=== PATIENT | male | born 1980 | race Caucasian/White ===

== ENCOUNTER 2018-06-14 07:52 | Day surgery (SDC) | payer BC ==
[~2018-06-14 07:52] MED LIST: Ketorolac 30 MG/ML SDV ONE; Lactated Ringers 1,000 ML IV SCH; Lactated Ringers 1,000 ML ONE; Lidocaine 1% 4 ML ONE; Lidocaine 1% 6 ML ONE; Lidocaine 1%/Sod Bicarbonate in NS 8.4% 1 ML Syringe IDERM PRN; Midazolam 1 MG/ML 2 ML SDV ONE; Ondansetron 4 MG/2 ML SDV ONE; Propofol 200 MG/20 ML SDV ONE; Rocuronium 50 MG/5 ML Vial ONE; Ropivacaine 0.5% 5 MG/ML 30 ML SDV ONE; Sodium Chloride 0.9% 10 ML Syringe FLUSH PRN; fentaNYL 250 MCG/5 ML SDV ONE
[2018-06-14] MEDS ORDERED: EPINEPHrine 1 MG/ML 30 ML MDV IV ONE (08:00)
[2018-06-14] MEDS ORDERED: EPINEPHrine 1 MG/ML 30 ML MDV ONE (08:15)
--- NOTE | 2018-06-14 08:50 | PCM.PREANE ---
Preanesthetic Assessment - Anesthesia/Transfusion/Family Hx Anesthesia History: Prior Anesthesia Without Reaction Family History of Anesthesia Reaction: No - Review of Systems General: No Symptoms Pulmonary: No Symptoms Cardiovascular: No Symptoms Gastrointestinal: No Symptoms Neurological: No Symptoms Other: Reports: Diabetes (Type II, controlled with oral medication. Blood Glucose today 269. Iggy states this is his usual range for this time of day. Ate last at 2300. ) - Physical Assessment NPO Status Date: 06/13/18 NPO Status Time: 23:00 O2 Sat by Pulse Oximetry: 97 Respiratory Rate: 16 Vital Signs: Last Vital Signs Temp 36.2 C 06/14/18 08:05 Pulse 97 06/14/18 08:05 Resp 16 06/14/18 08:05 BP 117/79 06/14/18 08:05 Pulse Ox 97 06/14/18 08:05 ASA Class: 2 Mental Status: Alert & Oriented x3 Airway Class: Mallampati = 1 Dentition: Reports: Normal Dentition Thyro-Mental Finger Breadths: 3 Mouth Opening Finger Breadths: 3 ROM/Head Extension: Full Lungs: Clear to Auscultation, Normal Respiratory Effort Cardiovascular: Regular Rate, Regular Rhythm - Lab Values: Laboratory Last Values POC Glucose 269 mg/dL (70-105) H 06/14/18 08:17 MRSA (PCR) Negative 06/13/18 11:55 - Allergies Allergies/Adverse Reactions: Allergies Allergy/AdvReac Type Severity Reaction Status Date / Time No Known Allergies Allergy Verified 06/13/18 15:03 - Anesthesia Plan Pre-Op Medication Ordered: Anxiolytic - Acknowledgements Anesthesia Type Planned: General Anesthesia, Regional Block (Interscalene Nerve Block ) Pt an Appropriate Candidate for the Planned Anesthesia: Yes Alternatives and Risks of Anesthesia Discussed w Pt/Guardian: Yes Pt/Guardian Understands and Agrees with Anesthesia Plan: Yes Additional Comments: Denies ETOH use for the last 2 years. Iggy does have an ankle monitoring device for ETOH on his left ankle that is unable to be removed. Chewing tobbaco 1/8 can per day. PreAnesthesia Questionnaire HEENT History: Reports: Impaired Vision Cardiovascular History: Reports: High Cholesterol Respiratory History: Reports: None Gastrointestinal History: Reports: None Genitourinary History: Reports: None QA SOFTWARE TESTER History: Reports: None Musculoskeletal History: Reports: Other (See Below) Other Musculoskeletal History: left shoulder pain, shoulder surgery Neurological History: Reports: None Psychiatric History: Reports: Other (See Below) Other Psychiatric History: fatigue, sleep disorder Endocrine/Metabolic History: Reports: Diabetes, Type II Hematologic History: Reports: None Immunologic History: Reports: None Oncologic (Cancer) History: Reports: None Dermatologic History: Reports: None - Past Surgical History Head Surgeries/Procedures: Reports: None HEENT Surgical History: Reports: Oral Surgery Cardiovascular Surgical History: Reports: None Respiratory Surgical History: Reports: None GI Surgical History: Reports: None Female Surgical History: Reports: None Male Surgical History: Reports: None Endocrine Surgical History: Reports: None Neurological Surgical History: Reports: None Musculoskeletal Surgical History: Reports: None Oncologic Surgical History: Reports: None Dermatological Surgical History: Reports: None - SUBSTANCE USE Smoking Status *Q: Current Every Day Smoker Tobacco Use Within Last Twelve Months: Snuff/Dip Recreational Drug Use History: No - HOME MEDS Home Medications: Home Meds Cholecalciferol (Vitamin D3) [Vitamin D3] 2,000 unit PO DAILY 06/13/18 [History] Fenofibrate 54 mg PO DAILY 06/13/18 [History] hydrOXYzine HCl [hydrOXYzine] 25 - 50 mg PO BEDTIME PRN 06/13/18 [History] sitaGLIPtin Phos/Metformin HCl [Janumet Xr 50-1,000 mg Tablet] 1 tab PO BID [History] Acetaminophen/HYDROcodone [[place] 325-5 MG] 1 - 2 tab PO Q6H PRN #40 tablet 06/14 [Rx] Cyclobenzaprine [Flexeril] 10 mg PO Q8H PRN #40 tab 06/14/18 [Rx] - CURRENT (IN HOUSE) MEDS Current Meds: Current Medications Lactated Ringer's (Ringers, Lactated) 1,000 mls @ 125 mls/hr IV ASDIRECTED DEMIAN Stop: 06/14/18 23:00 Lidocaine/Sodium Bicarbonate (Buffered Lidocaine 1% In Ns 8.4%) 0.25 ml IDERM ONETIME PRN PRN Reason: Prior to IV Start Stop: 06/14/18 18:00 Sodium Chloride (Saline Flush) 10 ml FLUSH ASDIRECTED PRN PRN Reason: Keep Vein Open Stop: 06/14/18 18:00 Discontinued Medications Epinephrine HCl (Adrenalin) Confirm Administered Dose 1 mg .ROUTE .STK-MED ONE Stop: 06/14/18 06:43 Epinephrine HCl (Adrenalin) 3 mg IV ONETIME ONE Stop: 06/14/18 08:01 Epinephrine HCl (Adrenalin) 3 mg .XX ONETIME ONE Stop: 06/14/18 08:16 Fentanyl (Sublimaze) Confirm Administered Dose 250 mcg .ROUTE .STK-MED ONE Stop: 06/14/18 06:38 Lidocaine HCl (Xylocaine-Mpf 1%) Confirm Administered Dose 6 mls @ as directed .ROUTE .STK-MED ONE Stop: 06/14/18 06:37 Lactated Ringer's (Ringers, Lactated) Confirm Administered Dose 1,000 mls @ as directed .ROUTE .STK-MED ONE Stop: 06/14/18 06:37 Lidocaine HCl (Xylocaine-Mpf 1%) Confirm Administered Dose 4 mls @ as directed .ROUTE .STK-MED ONE Stop: 06/14/18 06:43 Ketorolac Tromethamine (Toradol) Confirm Administered Dose 30 mg .ROUTE .STK- MED ONE Stop: 06/14/18 06:37 Midazolam HCl (Versed 1 Mg/Ml) Confirm Administered Dose 2 mg .ROUTE .STK-MED ONE Stop: 06/14/18 06:38 Ondansetron HCl (Zofran) Confirm Administered Dose 4 mg .ROUTE .STK-MED ONE Stop: 06/14/18 06:37 Propofol (Diprivan 20 Ml) Confirm Administered Dose 200 mg .ROUTE .STK-MED ONE Stop: 06/14/18 06:37 Rocuronium [place] (Zemuron) Confirm Administered Dose 50 mg .ROUTE .STK-MED ONE Stop: 06/14/18 06:37 Ropivacaine (Naropin 0.5%) Confirm Administered Dose 30 ml .ROUTE .STK-MED ONE Stop: 06/14/18 06:43
--- NOTE | 2018-06-14 10:02 | PCM.SN ---
- Free Text/Narrative Note: Interscalene nerve block note Date: 06/14/2018 Start: 924 Time Out: 921 Stop: 932 Procedure: Left interscalene block under US guidance for postoperative pain control Patient chart reviewed, risk/benefits discussed with patient, consent obtained. Patient positioned supine, monitors/alarms on, oxygen placed via nasal cannula at 2 LPM. Left shoulder prepped with chloraprep x2. Sterile drapes placed with aseptic technique. Under US guidance, right subclavian artery visualized along with the brachial plexus. Plexus followed cephalad up to C6 cricoid level, and area localized with 1mls of 1% lidocaine. 22gauge 2 inch stimiplex needle inserted under US and guided to brachial plexus C5-C6 trunks with 0.44mV with stimulation of biceps noted. Stimulation abolished at 0.2mVs. 1ml of Normal Saline injected with loss of stimulation. Incremental injection of 5mls with negative aspiration prior to each injection of 0.5% ropivacaine with 1:200,000 epinephrine. Total volume=30mls. Refer to nurses notes for vital signs and medication administration. Zayra Cardona [employer]
[2018-06-14] MEDS ORDERED: Propofol 200 MG/20 ML SDV ONE (10:35)
[2018-06-14] MEDS ORDERED: Albuterol 0.083% 2.5 MG/3 ML Neb Soln NEB PRN (11:03)
[2018-06-14] MEDS ORDERED: fentaNYL 100 MCG/2 ML SDV IVPUSH PRN (11:03)
[2018-06-14] MEDS ORDERED: HYDROmorphone 0.5 MG/0.5 ML Syringe IVPUSH PRN (11:03)
[2018-06-14] MEDS ORDERED: diphenhydrAMINE 50 MG/ML SDV IVPUSH PRN (11:03)
[2018-06-14] MEDS ORDERED: Ondansetron 4 MG/2 ML SDV IVPUSH PRN (11:03)
[2018-06-14] MEDS ORDERED: fentaNYL 100 MCG/2 ML SDV ONE (11:23)
[2018-06-14] MEDS: EPINEPHrine 1 MG/ML SDV ONE ×2 (11:26→11:41)
--- NOTE | 2018-06-14 12:21 | PCM.POSTAN ---
POST ANESTHESIA ASSESSMENT - MENTAL STATUS Mental Status: Alert - VITAL SIGNS Pulse Rate: 106 SaO2: 95 (2 LPM nasal cannula) Resp Rate: 16 Blood Pressure: 147/95 Temperature: 36.2 C - RESPIRATORY Respiratory Status: Respiratory Rate WNL, Airway Patent, O2 Saturation Stable, Supplemental Oxygen - CARDIOVASCULAR CV Status: Pulse Rate WNL, Blood Pressure Stable - GASTROINTESTINAL GI Status: No Symptoms - POST OP HYDRATION Hydration Status: Adequate & Stable
--- NOTE | 2018-06-14 13:42 | PCM48HPAN ---
Post Anesthesia Note - EVALUATION WITHIN 48HRS OF ANESTHETIC Vital Signs in Normal Range: Yes Patient Participated in Evaluation: Yes Respiratory Function Stable: Yes Airway Patent: Yes Cardiovascular Function Stable: Yes Hydration Status Stable: Yes Pain Control Satisfactory: Yes Nausea and Vomiting Control Satisfactory: Yes Mental Status Recovered: Yes
--- NOTE | 2018-06-18 15:09 | PCM.OPNOTE ---
- General Post-Op/Procedure Note Date of Surgery/Procedure: 06/14/18 Operative Procedure(s): left shoulder video arthroscopy with biceps tenodesis, subacromial decompression and limited debridement Pre Op Diagnosis: left shoulder biceps tendinosis and subacromial impingement Post-Op Diagnosis: Same Anesthesia Technique: General ET Tube, Regional Block Primary Surgeon: Matteo Tobias Anesthesia Provider: Paula Arteaga [employer] Rep: Izabela Linares EBAysha in mLs: 5 Complications: None Condition: Good
--- NOTE | 2018-06-19 15:08 | OR ---
DATE OF OPERATION: 06/14/2018 SURGEON: Matteo Tobias MD OPERATION PERFORMED: Left shoulder video arthroscopy with biceps tenodesis, subacromial decompression, and limited debridement. PREOPERATIVE DIAGNOSIS: Left shoulder biceps tendinosis and subacromial impingement. POSTOPERATIVE DIAGNOSIS: Left shoulder biceps tendinosis and subacromial impingement. ANESTHESIA: General endotracheal intubation with regional interscalene block. ANESTHESIA PROVIDER: Paula Arteaga CRNA. CAN HANDLER: Izabela Linares PA-C. ESTIMATED BLOOD LOSS: Less than 5 mL. COMPLICATIONS: None. CONDITION: Stable. DESCRIPTION OF PROCEDURE: The patient was identified in the preop holding area. Proper site was marked and identified by the surgeon. The patient was taken back to the operating theater, where after adequate anesthesia, the patient was placed in the lazy right lateral decubitus position and the left lower extremity was sterilely prepped and draped in the usual sterile fashion. OR time-out was performed. The patient received 2 g of IV Ancef. At this time, 12 pounds of traction was applied to the left upper extremity. A standard posterior incision was made and scope trocar was introduced to the glenohumeral joint. At this time, the patient was noted to have significant bicipital tendinitis as well as a type 2 SLAP tear that was not unstable anteriorly. At this time, the undersurface of the rotator cuff was found to have no tendinous tissues and no tendinopathy. The subscapularis tendon was intact. Glenohumeral joint showed no signs of chondromalacia. Anterior portal was then created using an outside-in technique. Spinal needle was then used for passage of a #2 FiberWire through the rotator interval and through the biceps tendon and then a tenotomy was performed at the attachment of the glenoid of the biceps tendon. At this time, it was found to have adequate resection and debridement was then done of the superior labrum back to a stable rim. At this point, attention was turned to the subacromial space. A lateral portal was then created and partial synovectomy and limited debridement were done to the subacromial space as it did show significant bursitis. The CA ligament did show significant fraying and at this time, debridement was done of the CA ligament as well as acromioplasty was performed back to a smooth border to the posterior rim opening up the subacromial space. At this time, the anterior limbs of the previous biceps tenodesis were identified anteriorly and then arthroscopically, these were tied in the rotator interval and the sutures were then cut. The patient's rotator cuff otherwise had minor amount of fraying, but otherwise holding intact with no signs of rotator cuff tear. Adequate saline was then irrigated through the shoulder and 3-0 nylon sutures were used for closure of the portal incisions. The patient was placed in a sterile soft dressing and a pillow sling and sent to the PACU in stable condition. REYNALDO /[id number]
== END 2018-06-14 14:01 | disposition home or self-care (01) ==
LOC: JD.SDS 07:52
PROVIDERS: ATTEND Orthopaedic Surgery
DX: M75.22 Bicipital tendinitis, left shoulder (principal); M75.42 Impingement syndrome of left shoulder; M75.52 Bursitis of left shoulder; S43.432A Superior glenoid labrum lesion of left shoulder, initial encounter; E11.9 Type 2 diabetes mellitus without complications; E78.00 Pure hypercholesterolemia, unspecified; E78.1 Pure hyperglyceridemia; E55.9 Vitamin D deficiency, unspecified; F17.220 Nicotine dependence, chewing tobacco, uncomplicated; G89.18 Other acute postprocedural pain; X58.XXXA Exposure to other specified factors, initial encounter; Z79.84 Long term (current) use of oral hypoglycemic drugs; Z79.899 Other long term (current) drug therapy
CPT/HCPCS: 29826; 29828; 64415; 82962; 87641; J0171; J1885; J2001; J2250; J2405; J2704; J2795; J3010; J7120; 01630

== ENCOUNTER 2020-09-13 13:09 | Inpatient (IN) | payer SELFPAY ==
[2020-09-13] MEDS ORDERED: Sodium Chloride 0.9% 10 ML Syringe FLUSH PRN (13:29)
--- NOTE | 2020-09-13 13:38 | EDM.PDOC ---
ED HPI GENERAL MEDICAL PROBLEM - General Chief Complaint: Skin Complaint Stated Complaint: INFECTED TOE Time Seen by Provider: 09/13/20 13:29 Source of Information: Reports: Patient, RN Notes Reviewed History Limitations: Reports: No Limitations - History of Present Illness INITIAL COMMENTS - FREE TEXT/NARRATIVE: Patient is a 40-year-old male who presents to the ER for evaluation of his left great toe infection. States that his toe got stepped on by a cow over a month ago, and he has been doctoring this at home, has been slightly reddened and a little bit swollen but has worsened over the last week, he notes that there is an ulceration to the underside of his left great toe, that seems to be black, and oozing. He has not been taking anything for pain as he states it is not painful. He denies any peripheral neuropathy, due to being a type II diabetic and states that he had a recent physical 2 weeks ago and everything was within normal limits for blood sugar control. Patient notes that he is fairly ticklish on his feet, so he does not think that he has any sort of neuropathy. Patient has good blood flow to his foot, dorsal pulses are strong on the left foot. Patient denies any other sick-like symptoms, fever/chills, cough/shortness of breath, nausea/vomiting/diarrhea. - Related Data Allergies Allergy/AdvReac Type Severity Reaction Status Date / Time No Known Allergies Allergy Verified 09/13/20 13:22 Home Meds: Home Meds Cholecalciferol (Vitamin D3) [Vitamin D3] 2,000 unit PO DAILY 06/13/18 [History] Fenofibrate 54 mg PO DAILY 06/13/18 [History] hydrOXYzine HCL [hydrOXYzine] 25 - 50 mg PO BEDTIME PRN 06/13/18 [History] metFORMIN [Glucophage XR] 1,000 mg PO BID 09/13/20 [History] Past Medical History HEENT History: Reports: Impaired Vision Cardiovascular History: Reports: High Cholesterol Respiratory History: Reports: None Gastrointestinal History: Reports: None Genitourinary History: Reports: None DRAWER IN PLAIN LOOM History: Reports: None Musculoskeletal History: Reports: Other (See Below) Other Musculoskeletal History: left shoulder pain, shoulder surgery Neurological History: Reports: None Psychiatric History: Reports: Other (See Below) Other Psychiatric History: fatigue, sleep disorder Endocrine/Metabolic History: Reports: Diabetes, Type II Hematologic History: Reports: None Immunologic History: Reports: None Oncologic (Cancer) History: Reports: None Dermatologic History: Reports: None - Past Surgical History HEENT Surgical History: Reports: Oral Surgery Musculoskeletal Surgical History: Reports: Shoulder Surgery Social & Family History - Tobacco Use Tobacco Use Status *Q: Never Tobacco User - Caffeine Use Caffeine Use: Reports: Energy Drinks - Recreational Drug Use Recreational Drug Use: No ED ROS GENERAL - Review of Systems Review Of Systems: Comprehensive ROS is negative, except as noted in HPI. ED EXAM, SKIN/RASH Exam: See Below Exam Limited By: No Limitations General Appearance: Alert, WD/WN, No Apparent Distress Respiratory/Chest: No Respiratory Distress, Lungs Clear, Normal Breath Sounds, No Accessory Muscle Use, Chest Non-Tender Cardiovascular: Normal Peripheral Pulses, Regular Rate, Rhythm, No Edema Extremities: Normal Range of Motion, Normal Capillary Refill, Other (Left great toe with ulceration to plantar surface, the entire toe is erythematous and has various stages of skin flaking off. pt denies pain.) Neurological: Alert, Oriented, Normal Cognition, No Motor/Sensory Deficits Psychiatric: Normal Affect, Normal Mood Skin: Warm, Dry, Normal Color, No Rash, Wound/Incision (Ulcer to left great toe on the plantar surface, with surrounding erythema and swelling.) Course - Vital Signs Last Recorded V/S: Last Vital Signs Temp 98.2 F 09/13/20 20:36 Pulse 104 H 09/13/20 20:36 Resp 13 09/13/20 20:36 BP 140/80 09/13/20 20:36 Pulse Ox 95 09/13/20 20:36 - Orders/Labs/Meds Orders: Active Orders 24 hr Category Date Time Status Patient Status [ADT] Routine ADT 09/13/20 15:25 Active Blood Glucose Check, Bedside [RC] TIDMEALS Care 09/13/20 15:24 Active Diabetes Education [RC] Click to Edit Care 09/13/20 15:30 Active Oxygen Therapy [RC] PRN Care 09/13/20 15:25 Active Up ad Elena [RC] ASDIRECTED Care 09/13/20 15:24 Active VTE/DVT Education [RC] PER UNIT ROUTINE Care 09/13/20 15:25 Active Vital Signs [RC] 10,16,22,04 Care 09/13/20 15:25 Active OT Evaluation and Treatment [CONS] Routine Cons 09/13/20 15:24 Active PT Evaluation and Treatment [CONS] Routine Cons 09/13/20 15:24 Active Consistent Carbohydrate Diet [DIET] Diet 09/13/20 Dinner Active BLOOD CULTURE [MREF] Stat Lab 09/13/20 13:46 Received BLOOD CULTURE [MREF] Stat Lab 09/13/20 13:53 Received C-REACTIVE PROTEIN [CHEM] AM Lab 09/14/20 05:11 Ordered CBC WITH AUTO DIFF [HEME] AM Lab 09/14/20 05:11 Ordered COMPREHENSIVE METABOLIC PN,CMP [CHEM] AM Lab 09/14/20 05:11 Ordered MAGNESIUM [CHEM] AM Lab 09/14/20 05:11 Ordered Acetaminophen [TylenoL] Med 09/13/20 15:24 Active 650 mg PO Q4H PRN Docusate Sodium [Colace] Med 09/13/20 15:24 Active 100 mg PO BID PRN Enoxaparin [Lovenox] Med 09/14/20 09:00 Active 30 mg SUBCUT DAILY Fenofibrate Med 09/14/20 09:00 Active 54 mg PO DAILY Insulin Regular, Human [HumuLIN R] Med 09/13/20 19:00 Active See Protocol SUBCUT TIDPC Morphine Med 09/13/20 15:24 Active 2 mg IVPUSH Q2H PRN Ondansetron [Zofran ODT] Med 09/13/20 15:24 Active 4 mg PO Q4H PRN Sodium Chloride 0.9% [Saline Flush] Med 09/13/20 13:29 Active 10 ml FLUSH ASDIRECTED PRN Temazepam [Restoril] Med 09/13/20 15:24 Active 15 mg PO BEDTIME PRN Vancomycin 1.5 gm Med 09/14/20 01:00 Active Sodium Chloride 0.9% [Normal Saline] 250 ml IV Q8H metFORMIN [Glucophage] Med 09/13/20 17:00 Active 1,000 mg PO BIDMEALS oxyCODONE Med 09/13/20 15:24 Active 5 mg PO Q4H PRN Blood Culture x2 Reflex Set [OM.PC] Stat Oth 09/13/20 13:30 Ordered Glucose Management Sub Q Reflex [OM.PC] Click to Edit Oth 09/13/20 15:24 Ordered Saline Lock Insert [OM.PC] Stat Oth 09/13/20 13:30 Ordered Resuscitation Status Routine Resus Stat 09/13/20 15:24 Ordered Medication Orders Acetaminophen (Acetaminophen 325 Mg Tab) 650 mg PO Q4H PRN PRN Reason: Pain (Mild 1-3)/fever Docusate Sodium (Docusate Sodium 100 Mg Cap) 100 mg PO BID PRN PRN Reason: Constipation Enoxaparin Sodium (Enoxaparin 30 Mg/0.3 Ml Syringe) 30 mg SUBCUT DAILY [facility] Fenofibrate (Fenofibrate 54 Mg Tab) 54 mg PO DAILY [facility] Vancomycin HCl 1.5 gm/ Sodium (Chloride) 250 mls @ 250 mls/hr IV Q8H [facility] Insulin Human Regular (Insulin Regular, Human 100 Units/Ml 3 Ml Vial) 0 unit SUBCUT TIDPC [facility]; Protocol Last Admin: 09/13/20 20:40 Dose: 4 unit Documented by: AUDELIA Metformin HCl (Metformin 500 Mg Tab) 1,000 mg PO BIDMEALS [facility] Last Admin: 09/13/20 18:22 Dose: 1,000 mg Documented by: STEPHENIE Morphine Sulfate (Morphine 2 Mg/Ml Syringe) 2 mg IVPUSH Q2H PRN PRN Reason: Pain (severe 7-10) Stop: 09/14/20 15:29 Ondansetron HCl (Ondansetron 4 Mg Tab.Dis) 4 mg PO Q4H PRN PRN Reason: nausea, able to take PO Oxycodone HCl (Oxycodone 5 Mg Tab) 5 mg PO Q4H PRN PRN Reason: Pain (moderate 4-6) Sodium Chloride (Sodium Chloride 0.9% 10 Ml Syringe) 10 ml FLUSH ASDIRECTED PRN PRN Reason: Keep Vein Open Last Admin: 09/13/20 13:49 Dose: 10 ml Documented by: JONO Temazepam (Temazepam 15 Mg Cap) 15 mg PO BEDTIME PRN PRN Reason: Sleep Last Admin: 09/13/20 20:41 Dose: 15 mg Documented by: AUDELIA Vancomycin HCl (Pharmacy To Dose - Vancomycin) 1 dose .XX ASDIRECTED [facility] Labs: Laboratory Tests 09/13/20 09/13/20 09/13/20 Range/Units 13:45 13:45 13:45 WBC (4.23-9.07) K/mm3 RBC (4.63-6.08) M/mm3 Hgb (13.7-17.5) gm/dl Hct (40.1-51.0) % MCV (79.0-92.2) fl MCH (25.7-32.2) pg MCHC (32.2-35.5) g/dl RDW Std Deviation (35.1-43.9) fL Plt Count (163-337) K/mm3 MPV (9.4-12.3) fl Neutrophils % (Manual) (40-60) % Band Neutrophils % (0-10) % Lymphocytes % (Manual) (20-40) % Atypical Lymphs % % Monocytes % (Manual) (2-10) % Eosinophils % (Manual) (0.8-7.0) % Basophils % (Manual) (0.2-1.2) Platelet Estimate Anisocytosis Macrocytosis RBC Morph Comment PT 9.9 (9.7-12.0) SECONDS INR < 0.93 Sodium 140 (136-145) mEq/L Potassium 4.3 (3.5-5.1) mEq/L Chloride 101 (98-107) mEq/L Carbon Dioxide 25 (21-32) mEq/L Anion Gap 18.3 H (5-15) BUN 13 (7-18) mg/dL Creatinine 0.9 (0.7-1.3) mg/dL Est Cr Clr Drug Dosing 129.39 mL/min Estimated GFR (MDRD) > 60 (>60) mL/min BUN/Creatinine Ratio 14.4 (14-18) Glucose 283 H (70-99) mg/dL Hemoglobin A1c ( - 5.6) % Lactic Acid 1.0 (0.4-2.0) mmol/L Calcium 9.2 (8.5-10.1) mg/dL Total Bilirubin 2.1 H (0.2-1.0) mg/dL AST 22 (15-37) U/L ALT 58 (16-63) U/L Alkaline Phosphatase 100 (46-116) U/L C-Reactive Protein 11.3 H* (<1.0) mg/dL Total Protein 7.9 (6.4-8.2) g/dl Albumin 3.7 (3.4-5.0) g/dl Globulin 4.2 gm/dL Albumin/Globulin Ratio 0.9 L (1-2) Influenza Type A RNA (NEGATIVE) Influenza Type B RNA (NEGATIVE) SARS-CoV-2 RNA (OZZIE) (NEGATIVE) 09/13/20 09/13/20 09/13/20 Range/Units 13:46 13:46 14:20 WBC 4.15 L (4.23-9.07) K/mm3 RBC 4.03 L (4.63-6.08) M/mm3 Hgb 14.4 D (13.7-17.5) gm/dl Hct 41.1 (40.1-51.0) % MCV 102.0 H D (79.0-92.2) fl MCH 35.7 H (25.7-32.2) pg MCHC 35.0 (32.2-35.5) g/dl RDW Std Deviation 50.3 H (35.1-43.9) fL Plt Count 167 (163-337) K/mm3 MPV 8.3 L (9.4-12.3) fl Neutrophils % (Manual) 69 H (40-60) % Band Neutrophils % 0 (0-10) % Lymphocytes % (Manual) 22 (20-40) % Atypical Lymphs % 0 % Monocytes % (Manual) 6 (2-10) % Eosinophils % (Manual) 3 (0.8-7.0) % Basophils % (Manual) 0 L (0.2-1.2) Platelet Estimate Adequate Anisocytosis 1+ slight Macrocytosis 1+ slight RBC Morph Comment Not Reportable PT (9.7-12.0) SECONDS INR Sodium (136-145) mEq/L Potassium (3.5-5.1) mEq/L Chloride (98-107) mEq/L Carbon Dioxide (21-32) mEq/L Anion Gap (5-15) BUN (7-18) mg/dL Creatinine (0.7-1.3) mg/dL Est Cr Clr Drug Dosing mL/min Estimated GFR (MDRD) (>60) mL/min BUN/Creatinine Ratio (14-18) Glucose (70-99) mg/dL Hemoglobin A1c 7.5 H ( - 5.6) % Lactic Acid (0.4-2.0) mmol/L Calcium (8.5-10.1) mg/dL Total Bilirubin (0.2-1.0) mg/dL AST (15-37) U/L ALT (16-63) U/L Alkaline Phosphatase (46-116) U/L C-Reactive Protein (<1.0) mg/dL Total Protein (6.4-8.2) g/dl Albumin (3.4-5.0) g/dl Globulin gm/dL Albumin/Globulin Ratio (1-2) Influenza Type A RNA Negative (NEGATIVE) Influenza Type B RNA Negative (NEGATIVE) SARS-CoV-2 RNA (OZZIE) Negative (NEGATIVE) Meds: Medications Generic Name Dose Route Start Last Admin Trade Name Freq PRN Reason Stop Dose Admin Acetaminophen 650 mg 09/13/20 15:24 Acetaminophen 325 Mg Tab PO Q4H PRN Pain (Mild 1-3)/fever Docusate Sodium 100 mg 09/13/20 15:24 Docusate Sodium 100 Mg Cap PO BID PRN Constipation Enoxaparin Sodium 30 mg 09/14/20 09:00 Enoxaparin 30 Mg/0.3 Ml Syringe SUBCUT DAILY [facility] Fenofibrate 54 mg 09/14/20 09:00 Fenofibrate 54 Mg Tab PO DAILY [facility] Vancomycin HCl 1.5 gm/ Sodium 250 mls @ 250 mls/hr 09/14/20 01:00 Chloride IV Q8H [facility] Insulin Human Regular 0 unit 09/13/20 19:00 09/13/20 20:40 Insulin Regular, Human 100 Units/Ml 3 Ml Vial SUBCUT 4 unit TIDPC [facility] Administration Protocol Metformin HCl 1,000 mg 09/13/20 17:00 09/13/20 18:22 Metformin 500 Mg Tab PO 1,000 mg BIDMEALS [facility] Administration Morphine Sulfate 2 mg 09/13/20 15:24 Morphine 2 Mg/Ml Syringe IVPUSH 09/14/20 15:29 Q2H PRN Pain (severe 7-10) Ondansetron HCl 4 mg 09/13/20 15:24 Ondansetron 4 Mg Tab.Dis PO Q4H PRN nausea, able to take PO Oxycodone HCl 5 mg 09/13/20 15:24 Oxycodone 5 Mg Tab PO Q4H PRN Pain (moderate 4-6) Sodium Chloride 10 ml 09/13/20 13:29 09/13/20 13:49 Sodium Chloride 0.9% 10 Ml Syringe FLUSH 10 ml ASDIRECTED PRN Administration Keep Vein Open Temazepam 15 mg 09/13/20 15:24 09/13/20 20:41 Temazepam 15 Mg Cap PO 15 mg BEDTIME PRN Administration Sleep Vancomycin HCl 1 dose 09/13/20 16:15 Pharmacy To Dose - Vancomycin .XX ASDIRECTED [facility] Discontinued Medications Generic Name Dose Route Start Last Admin Trade Name Freq PRN Reason Stop Dose Admin Vancomycin HCl 1.5 gm/ Sodium 500 mls @ 250 mls/hr 09/13/20 15:00 09/13/20 16:16 Chloride IV 09/13/20 16:59 250 mls/hr ONETIME ONE Administration Vancomycin HCl 1 dose 09/13/20 14:45 Pharmacy To Dose - Vancomycin .XX 09/13/20 14:46 ONETIME ONE Vancomycin HCl 1 dose 09/13/20 16:15 Pharmacy To Dose - Vancomycin .XX ASDIRECTED [facility] - Re-Assessments/Exams Free Text/Narrative Re-Assessment/Exam: 09/13/20 13:37 Patient presents to the ER for his left great toe infection, I do suspect possible osteomyelitis at this time, there is a area of ulceration, it measures about 2 x 2 cm, on the plantar surface of the left great toe, area does look to be somewhat black in this area. States he is having no pain to his toe. We will go ahead and get laboratory evaluation for initial management, and a toe x- ray as well. This patient will likely need hospitalization for ongoing management. 09/13/20 14:30 X-rays have been obtained, there is diffuse soft tissue swelling noted, deformities within the corner base of the distal phalanx suspicious for osteomyelitis, also findings within the corner base of the proximal phalanx with specific but also could represent additional area osteomyelitis. Other chronic findings. Labs have started to result, and CBC demonstrates a mildly low white count 4.17, all other labs are still resulting for the most part. 09/13/20 15:47 Metabolic panel demonstrates a blood sugar of 238, CRP at 11.7, I did discuss the case with Dr. Bosch, and he did accept the patient for admission. Does want IV vancomycin to be ordered, this has been ordered, patient's Covid screen was also negative for today's purposes. Departure - Departure Time of Disposition: 15:45 Disposition: Admitted As Inpatient 68 Condition: Fair Clinical Impression: Osteomyelitis of great toe of left foot - Discharge Information Sepsis Event Note (ED) - Evaluation Sepsis Screening Result: No Definite Risk - Focused Exam Vital Signs: Vital Signs Temp Pulse Resp BP Pulse Ox 09/13/20 13:19 96.7 F L 122 H 18 164/121 H 99 - My Orders Last 24 Hours: My Active Orders 09/13/20 13:29 Sodium Chloride 0.9% [Saline Flush] 10 ml FLUSH ASDIRECTED PRN 09/13/20 13:30 Blood Culture x2 Reflex Set [OM.PC] Stat Saline Lock Insert [OM.PC] Stat 09/13/20 13:46 BLOOD CULTURE [MREF] Stat 09/13/20 13:53 BLOOD CULTURE [MREF] Stat - Assessment/Plan Last 24 Hours: My Active Orders 09/13/20 13:29 Sodium Chloride 0.9% [Saline Flush] 10 ml FLUSH ASDIRECTED PRN 09/13/20 13:30 Blood Culture x2 Reflex Set [OM.PC] Stat Saline Lock Insert [OM.PC] Stat 09/13/20 13:46 BLOOD CULTURE [MREF] Stat 09/13/20 13:53 BLOOD CULTURE [MREF] Stat
--- NOTE | 2020-09-13 14:23 | CR ---
Left first toe: 4 views left first toe were obtained. Comparison: No prior study. Small irregular area is identified within the corner base of the distal phalanx which is suspicious for small area of osteomyelitis. Lucency is also seen within the corner base of the proximal phalanx which is less specific for osteomyelitis. Cystic change is seen within the base of the proximal phalanx which is most likely old. There is deformity noted within the distal shaft and epiphysis with articular extension within the proximal phalanx compatible with old appearing fracture. Diffuse soft tissue swelling is noted. Impression: 1. Multiple bony findings as described above. Findings within the corner base of the distal phalanx are suspicious for osteomyelitis. Findings within the corner base of the proximal phalanx are less specific but could also represent an additional area of osteomyelitis. 2. Other findings most likely chronic. 3. Soft tissue swelling. Diagnostic code #3
[2020-09-13] MEDS ORDERED: Vancomycin 1.5 GM in Sodium Chloride 0.9% 500 ML IV ONE (15:00)
--- NOTE | 2020-09-13 15:23 | PCM.HP.2 ---
H&P History of Present Illness - General Date of Service: 09/13/20 Source of Information: Patient History Limitations: Reports: No Limitations - History of Present Illness Initial Comments - Free Text/Narative: The patient is a 40-year-old gentleman who had presented to the emergency department with a complaint of worsening infection of his left great toe. Patient reports that about 2 to 3 weeks ago a cow had stepped on his toe and it had developed a blister. The patient had been treating it at home with creams and ointments and trying to keep it clean. The patient has had no specific aggravating or relieving factors for this. It gotten progressively worse to the point that he needed to seek care. The patient has a history of diabetes that reportedly has been well controlled. The patient has denied any numbness or tingling to his feet. He has denied any pain to his foot. The patient has not had any fever or chills. He is only taking medication for his diabetes and cholesterol. The patient follows up with his primary care physician on a regular basis. Onset of Symptoms: Reports: Gradual Duration of Symptoms: Reports: Week(s):, Getting Worse Location: Reports: Lower Extremity, Right Improves with: Reports: None Worsens with: Reports: None Context: Reports: Trauma (Cow stepped on his left foot) Associated Symptoms: Reports: No Other Symptoms - Related Data Allergies/Adverse Reactions: Allergies Allergy/AdvReac Type Severity Reaction Status Date / Time No Known Allergies Allergy Verified 09/13/20 13:22 Home Medications: Home Meds Cholecalciferol (Vitamin D3) [Vitamin D3] 2,000 unit PO DAILY 06/13/18 [History] Fenofibrate 54 mg PO DAILY 06/13/18 [History] hydrOXYzine HCL [hydrOXYzine] 25 - 50 mg PO BEDTIME PRN 06/13/18 [History] metFORMIN [Glucophage XR] 1,000 mg PO BID 09/13/20 [History] Past Medical History HEENT History: Reports: Impaired Vision Cardiovascular History: Reports: High Cholesterol Respiratory History: Reports: None Gastrointestinal History: Reports: None Genitourinary History: Reports: None [employer] History: Reports: None Musculoskeletal History: Reports: Other (See Below) Other Musculoskeletal History: left shoulder pain, shoulder surgery Neurological History: Reports: None Psychiatric History: Reports: Other (See Below) Other Psychiatric History: fatigue, sleep disorder Endocrine/Metabolic History: Reports: Diabetes, Type II Hematologic History: Reports: None Immunologic History: Reports: None Oncologic (Cancer) History: Reports: None Dermatologic History: Reports: None - Past Surgical History HEENT Surgical History: Reports: Oral Surgery Musculoskeletal Surgical History: Reports: Shoulder Surgery Social & Family History - Tobacco Use Tobacco Use Status *Q: Never Tobacco User - Caffeine Use Caffeine Use: Reports: Energy Drinks - Recreational Drug Use Recreational Drug Use: No - Living Situation & Occupation Living situation: Reports: Single Occupation: Employed H&P Review of Systems - Review of Systems: Review Of Systems: See Below General: Reports: No Symptoms HEENT: Reports: No Symptoms Pulmonary: Reports: No Symptoms Cardiovascular: Reports: No Symptoms Gastrointestinal: Reports: No Symptoms Genitourinary: Reports: No Symptoms Musculoskeletal: Reports: Foot Pain Skin: Reports: No Symptoms, Wound (Diabetic foot ulcer), Change in Color, Other Psychiatric: Reports: No Symptoms Neurological: Reports: No Symptoms Hematologic/Lymphatic: Reports: No Symptoms Immunologic: Reports: No Symptoms Exam - Exam Exam: See Below - Vital Signs Vital Signs: Last Vital Signs Temp 35.9 C L 09/13/20 13:19 Pulse 122 H 09/13/20 13:19 Resp 18 09/13/20 13:19 BP 164/121 H 09/13/20 13:19 Pulse Ox 99 09/13/20 13:19 Weight: 97.159 kg - Exam Quality Assessment: No: Supplemental Oxygen, DVT Prophylaxis General: Alert, Oriented, Cooperative HEENT: Conjunctiva Clear, EACs Clear, EOMI, Hearing Intact, Mucosa Moist & [place], PERRLA Neck: Supple, Trachea Midline Lungs: Clear to Auscultation, Normal Respiratory Effort Cardiovascular: Regular Rate, Regular Rhythm GI/Abdominal Exam: Normal Bowel Sounds, Soft, Non-Tender, No Distention (Male) Exam: Deferred Rectal (Males) Exam: Deferred Back Exam: Normal Inspection, Full Range of Motion Extremities: Normal Inspection, No Pedal Edema Skin: Warm, Dry, Wound (Plantar surface left great toe area of ulceration 1 cm x 1 cm with black oozy fluid) Neurological: Cranial Nerves Intact, Normal Gait, Normal Speech Neuro Extensive - Mental Status: Alert, Oriented x3 Psychiatric: Alert, Normal Affect, Normal Mood - Patient Data Lab Results Last 24 hrs: Laboratory Results - last 24 hr 09/13/20 09/13/20 09/13/20 Range/Units 13:45 13:45 13:45 WBC (4.23-9.07) K/mm3 RBC (4.63-6.08) M/mm3 Hgb (13.7-17.5) gm/dl Hct (40.1-51.0) % MCV (79.0-92.2) fl MCH (25.7-32.2) pg MCHC (32.2-35.5) g/dl RDW Std Deviation (35.1-43.9) fL Plt Count (163-337) K/mm3 MPV (9.4-12.3) fl Neutrophils % (Manual) (40-60) % Band Neutrophils % (0-10) % Lymphocytes % (Manual) (20-40) % Atypical Lymphs % % Monocytes % (Manual) (2-10) % Eosinophils % (Manual) (0.8-7.0) % Basophils % (Manual) (0.2-1.2) Platelet Estimate Anisocytosis Macrocytosis RBC Morph Comment PT 9.9 (9.7-12.0) SECONDS INR < 0.93 Sodium 140 (136-145) mEq/L Potassium 4.3 (3.5-5.1) mEq/L Chloride 101 (98-107) mEq/L Carbon Dioxide 25 (21-32) mEq/L Anion Gap 18.3 H (5-15) BUN 13 (7-18) mg/dL Creatinine 0.9 (0.7-1.3) mg/dL Est Cr Clr Drug Dosing 129.39 mL/min Estimated GFR (MDRD) > 60 (>60) mL/min BUN/Creatinine Ratio 14.4 (14-18) Glucose 283 H (70-99) mg/dL Lactic Acid 1.0 (0.4-2.0) mmol/L Calcium 9.2 (8.5-10.1) mg/dL Total Bilirubin 2.1 H (0.2-1.0) mg/dL AST 22 (15-37) U/L ALT 58 (16-63) U/L Alkaline Phosphatase 100 (46-116) U/L C-Reactive Protein 11.3 H* (<1.0) mg/dL Total Protein 7.9 (6.4-8.2) g/dl Albumin 3.7 (3.4-5.0) g/dl Globulin 4.2 gm/dL Albumin/Globulin Ratio 0.9 L (1-2) 09/13/20 Range/Units 13:46 WBC 4.15 L (4.23-9.07) K/mm3 RBC 4.03 L (4.63-6.08) M/mm3 Hgb 14.4 D (13.7-17.5) gm/dl Hct 41.1 (40.1-51.0) % MCV 102.0 H D (79.0-92.2) fl MCH 35.7 H (25.7-32.2) pg MCHC 35.0 (32.2-35.5) g/dl RDW Std Deviation 50.3 H (35.1-43.9) fL Plt Count 167 (163-337) K/mm3 MPV 8.3 L (9.4-12.3) fl Neutrophils % (Manual) 69 H (40-60) % Band Neutrophils % 0 (0-10) % Lymphocytes % (Manual) 22 (20-40) % Atypical Lymphs % 0 % Monocytes % (Manual) 6 (2-10) % Eosinophils % (Manual) 3 (0.8-7.0) % Basophils % (Manual) 0 L (0.2-1.2) Platelet Estimate Adequate Anisocytosis 1+ slight Macrocytosis 1+ slight RBC Morph Comment Not Reportable PT (9.7-12.0) SECONDS INR Sodium (136-145) mEq/L Potassium (3.5-5.1) mEq/L Chloride (98-107) mEq/L Carbon Dioxide (21-32) mEq/L Anion Gap (5-15) BUN (7-18) mg/dL Creatinine (0.7-1.3) mg/dL Est Cr Clr Drug Dosing mL/min Estimated GFR (MDRD) (>60) mL/min BUN/Creatinine Ratio (14-18) Glucose (70-99) mg/dL Lactic Acid (0.4-2.0) mmol/L Calcium (8.5-10.1) mg/dL Total Bilirubin (0.2-1.0) mg/dL AST (15-37) U/L ALT (16-63) U/L Alkaline Phosphatase (46-116) U/L C-Reactive Protein (<1.0) mg/dL Total Protein (6.4-8.2) g/dl Albumin (3.4-5.0) g/dl Globulin gm/dL Albumin/Globulin Ratio (1-2) Result Diagrams: 09/13/20 13:46 09/13/20 13:45 Sepsis Event Note - Evaluation Sepsis Screening Result: No Definite Risk - Focused Exam Vital Signs: Vital Signs Temp Pulse Resp BP Pulse Ox 09/13/20 13:19 35.9 C L 122 H 18 164/121 H 99 - Problem List (1) Diabetic foot ulcer associated with type 2 diabetes mellitus SNOMED Code(s): 7906071885886 ICD Code: E11.621 - TYPE 2 DIABETES MELLITUS WITH FOOT ULCER; L97.509 - NON- PRESSURE CHRONIC ULCER OTH PRT UNSP FOOT W UNSP SEVERITY Status: Acute Priority: High Current Visit: Yes Qualifiers: Diabetic foot ulcer location: toe Laterality: left Non-pressure ulcer stage: with other severity Qualified Code(s): E11.621 - Type 2 diabetes mellitus with foot ulcer; L97.528 - Non-pressure chronic ulcer of other part of left foot with other specified severity (2) Diabetes mellitus type 2 in nonobese SNOMED Code(s): 273624465 ICD Code: E11.9 - TYPE 2 DIABETES MELLITUS WITHOUT COMPLICATIONS Status: Chronic Priority: High Current Visit: Yes Problem List Initiated/Reviewed/Updated: Yes Orders Last 24hrs: Active Orders 24 hr Category Date Time Status BLOOD CULTURE [MREF] Stat Lab 09/13/20 13:46 Received BLOOD CULTURE [MREF] Stat Lab 09/13/20 13:53 Received COVID-19/FLU A+B [MOLEC] Stat Lab 09/13/20 14:20 Received Sodium Chloride 0.9% [Saline Flush] Med 09/13/20 13:29 Active 10 ml FLUSH ASDIRECTED PRN Vancomycin 1.5 gm Med 09/13/20 15:00 Active Sodium Chloride 0.9% [Normal Saline] 500 ml IV ONETIME Blood Culture x2 Reflex Set [OM.PC] Stat Oth 09/13/20 13:30 Ordered Saline Lock Insert [OM.PC] Stat Oth 09/13/20 13:30 Ordered Medication Orders Vancomycin HCl 1.5 gm/ Sodium (Chloride) 500 mls @ 250 mls/hr IV ONETIME ONE Stop: 09/13/20 16:59 Sodium Chloride (Sodium Chloride 0.9% 10 Ml Syringe) 10 ml FLUSH ASDIRECTED PRN PRN Reason: Keep Vein Open Last Admin: 09/13/20 13:49 Dose: 10 ml Documented by: JONO Assessment/Plan Comment:: The patient is a 40-year-old gentleman who has been admitted as an inpatient for treatment of his reported osteomyelitis. Radiology had over read the x-ray of his left great toe and suspicion was osteomyelitis. The patient has been started on vancomycin, pharmacy to dose. Patient will be kept on his home Metformin and placed on insulin sliding scale low-dose. The patient will also have wound care ordered to help assess dressing clean his foot ulcer. He does not require any pain medication at present but it has been made available. The patient is also been placed on DVT prophylaxis with the use of Lovenox 30 mg subcu daily. He will be kept on diabetic diet as tolerated. Repeat laboratory studies have been ordered in the morning. - Mortality Measure Prognosis:: Good
[2020-09-13] MEDS ORDERED: Ondansetron 4 MG Tab.DIS PO PRN (15:24)
[2020-09-13] MEDS ORDERED: Morphine 2 MG/ML SYRINGE IVPUSH PRN (15:24)
[2020-09-13] MEDS ORDERED: Acetaminophen 325 MG Tab PO PRN (15:24)
[2020-09-13] MEDS ORDERED: Docusate Sodium 100 MG Cap PO PRN (15:24)
[2020-09-13] MEDS ORDERED: oxyCODONE 5 MG Tab PO PRN (15:24)
[2020-09-13 15:26] LABS: CORONAVIRUS COVID-19 NAA NEGATIVE (NEGATIVE)
[2020-09-13 16:09] LABS: HEMOGLOBIN A1C 7.5 %
[2020-09-13] MEDS: metFORMIN 500 MG Tab PO SCH (18:22)
[2020-09-13] MEDS: Insulin Regular, Human 100 Units/ML 3 ML Vial SUBCUT SCH (20:40)
[2020-09-13] MEDS: Temazepam 15 MG Cap PO PRN (23:30)
[2020-09-14] MEDS: metFORMIN 500 MG Tab PO SCH ×2 (07:27→17:01)
[2020-09-14] MEDS: Fenofibrate 54 MG Tab PO SCH (08:21)
[2020-09-14] MEDS: Enoxaparin 40 MG/0.4 ML Syringe SUBCUT SCH (08:21)
--- NOTE | 2020-09-14 08:44 | PCM.PN ---
<Stew Galeano - Last Filed: 09/14/20 10:47> - General Info Date of Service: 09/14/20 Admission Dx/Problem (Free Text): Osteomyelitis of toe Functional Status: Reports: Pain Controlled, Tolerating Diet, Ambulating, Urinating. Denies: New Symptoms - Review of Systems General: Reports: No Symptoms. Denies: Fever, Weakness, Fatigue, Malaise, Chills HEENT: Reports: No Symptoms. Denies: Headaches, Sore Throat Pulmonary: Reports: No Symptoms. Denies: Shortness of Breath, Pleuritic Chest Pain, Cough, Sputum, Wheezing Cardiovascular: Reports: No Symptoms. Denies: Chest Pain, Palpitations, Dyspnea on Exertion, Edema, Lightheadedness Gastrointestinal: Reports: No Symptoms. Denies: Abdominal Pain, Constipation, Diarrhea, Nausea, Vomiting Genitourinary: Reports: No Symptoms. Denies: Pain Musculoskeletal: Reports: No Symptoms. Denies: Foot Pain Skin: Reports: No Symptoms. Denies: Cyanosis Neurological: Reports: No Symptoms. Denies: Confusion, Dizziness, Headache, Numbness, Pre-Existing Deficit, Syncope, Tingling, Difficulty Walking, Weakness, Gait Disturbance Psychiatric: Reports: No Symptoms. Denies: Confusion - Patient Data Vitals - Most Recent: Last Vital Signs Temp 97.9 F 09/14/20 05:07 Pulse 92 09/14/20 05:07 Resp 13 09/14/20 05:07 BP 133/81 09/14/20 05:07 Pulse Ox 97 09/14/20 05:07 Weight - Most Recent: 95.164 kg I&O - Last 24 Hours: Intake & Output 09/13/20 09/14/20 09/14/20 22:59 06:59 14:59 Intake Total 1050 Balance 1050 Lab Results Last 24 Hours: Laboratory Results - last 24 hr 09/13/20 09/13/20 09/13/20 Range/Units 13:45 13:45 13:45 WBC (4.23-9.07) K/mm3 RBC (4.63-6.08) M/mm3 Hgb (13.7-17.5) gm/dl Hct (40.1-51.0) % MCV (79.0-92.2) fl MCH (25.7-32.2) pg MCHC (32.2-35.5) g/dl RDW Std Deviation (35.1-43.9) fL Plt Count (163-337) K/mm3 MPV (9.4-12.3) fl Neut % (Auto) (34.0-67.9) % Lymph % (Auto) (21.8-53.1) % [place] % (Auto) (5.3-12.2) % Eos % (Auto) (0.8-7.0) Baso % (Auto) (0.1-1.2) % Neut # (Auto) (1.78-5.38) K/mm3 Lymph # (Auto) (1.32-3.57) K/mm3 [place] # (Auto) (0.30-0.82) K/mm3 Eos # (Auto) (0.04-0.54) K/mm3 Baso # (Auto) (0.01-0.08) K/mm3 Neutrophils % (Manual) (40-60) % Band Neutrophils % (0-10) % Lymphocytes % (Manual) (20-40) % Atypical Lymphs % % Monocytes % (Manual) (2-10) % Eosinophils % (Manual) (0.8-7.0) % Basophils % (Manual) (0.2-1.2) Platelet Estimate Anisocytosis Macrocytosis RBC Morph Comment PT 9.9 (9.7-12.0) SECONDS INR < 0.93 Sodium 140 (136-145) mEq/L Potassium 4.3 (3.5-5.1) mEq/L Chloride 101 (98-107) mEq/L Carbon Dioxide 25 (21-32) mEq/L Anion Gap 18.3 H (5-15) BUN 13 (7-18) mg/dL Creatinine 0.9 (0.7-1.3) mg/dL Est Cr Clr Drug Dosing 129.39 mL/min Estimated GFR (MDRD) > 60 (>60) mL/min BUN/Creatinine Ratio 14.4 (14-18) Glucose 283 H (70-99) mg/dL POC Glucose (70-99) mg/dL Hemoglobin A1c ( - 5.6) % Lactic Acid 1.0 (0.4-2.0) mmol/L Calcium 9.2 (8.5-10.1) mg/dL Magnesium (1.8-2.4) mg/dL Total Bilirubin 2.1 H (0.2-1.0) mg/dL AST 22 (15-37) U/L ALT 58 (16-63) U/L Alkaline Phosphatase 100 (46-116) U/L C-Reactive Protein 11.3 H* (<1.0) mg/dL Total Protein 7.9 (6.4-8.2) g/dl Albumin 3.7 (3.4-5.0) g/dl Globulin 4.2 gm/dL Albumin/Globulin Ratio 0.9 L (1-2) Influenza Type A RNA (NEGATIVE) Influenza Type B RNA (NEGATIVE) SARS-CoV-2 RNA (OZZIE) (NEGATIVE) 09/13/20 09/13/20 09/13/20 Range/Units 13:46 13:46 14:20 WBC 4.15 L (4.23-9.07) K/mm3 RBC 4.03 L (4.63-6.08) M/mm3 Hgb 14.4 D (13.7-17.5) gm/dl Hct 41.1 (40.1-51.0) % MCV 102.0 H D (79.0-92.2) fl MCH 35.7 H (25.7-32.2) pg MCHC 35.0 (32.2-35.5) g/dl RDW Std Deviation 50.3 H (35.1-43.9) fL Plt Count 167 (163-337) K/mm3 MPV 8.3 L (9.4-12.3) fl Neut % (Auto) (34.0-67.9) % Lymph % (Auto) (21.8-53.1) % [place] % (Auto) (5.3-12.2) % Eos % (Auto) (0.8-7.0) Baso % (Auto) (0.1-1.2) % Neut # (Auto) (1.78-5.38) K/mm3 Lymph # (Auto) (1.32-3.57) K/mm3 [place] # (Auto) (0.30-0.82) K/mm3 Eos # (Auto) (0.04-0.54) K/mm3 Baso # (Auto) (0.01-0.08) K/mm3 Neutrophils % (Manual) 69 H (40-60) % Band Neutrophils % 0 (0-10) % Lymphocytes % (Manual) 22 (20-40) % Atypical Lymphs % 0 % Monocytes % (Manual) 6 (2-10) % Eosinophils % (Manual) 3 (0.8-7.0) % Basophils % (Manual) 0 L (0.2-1.2) Platelet Estimate Adequate Anisocytosis 1+ slight Macrocytosis 1+ slight RBC Morph Comment Not Reportable PT (9.7-12.0) SECONDS INR Sodium (136-145) mEq/L Potassium (3.5-5.1) mEq/L Chloride (98-107) mEq/L Carbon Dioxide (21-32) mEq/L Anion Gap (5-15) BUN (7-18) mg/dL Creatinine (0.7-1.3) mg/dL Est Cr Clr Drug Dosing mL/min Estimated GFR (MDRD) (>60) mL/min BUN/Creatinine Ratio (14-18) Glucose (70-99) mg/dL POC Glucose (70-99) mg/dL Hemoglobin A1c 7.5 H ( - 5.6) % Lactic Acid (0.4-2.0) mmol/L Calcium (8.5-10.1) mg/dL Magnesium (1.8-2.4) mg/dL Total Bilirubin (0.2-1.0) mg/dL AST (15-37) U/L ALT (16-63) U/L Alkaline Phosphatase (46-116) U/L C-Reactive Protein (<1.0) mg/dL Total Protein (6.4-8.2) g/dl Albumin (3.4-5.0) g/dl Globulin gm/dL Albumin/Globulin Ratio (1-2) Influenza Type A RNA Negative (NEGATIVE) Influenza Type B RNA Negative (NEGATIVE) SARS-CoV-2 RNA (OZZIE) Negative (NEGATIVE) 09/13/20 09/14/20 09/14/20 Range/Units 19:37 05:45 05:45 WBC 3.99 L (4.23-9.07) K/mm3 RBC 3.31 L (4.63-6.08) M/mm3 Hgb 11.8 L D (13.7-17.5) gm/dl Hct 34.7 L (40.1-51.0) % MCV 104.8 H (79.0-92.2) fl MCH 35.6 H (25.7-32.2) pg MCHC 34.0 (32.2-35.5) g/dl RDW Std Deviation 52.7 H (35.1-43.9) fL Plt Count 157 L (163-337) K/mm3 MPV 8.8 L (9.4-12.3) fl Neut % (Auto) 58.1 (34.0-67.9) % Lymph % (Auto) 27.3 (21.8-53.1) % [place] % (Auto) 10.0 (5.3-12.2) % Eos % (Auto) 2.8 (0.8-7.0) Baso % (Auto) 0.3 (0.1-1.2) % Neut # (Auto) 2.32 (1.78-5.38) K/mm3 Lymph # (Auto) 1.09 L (1.32-3.57) K/mm3 [place] # (Auto) 0.40 (0.30-0.82) K/mm3 Eos # (Auto) 0.11 (0.04-0.54) K/mm3 Baso # (Auto) 0.01 (0.01-0.08) K/mm3 Neutrophils % (Manual) (40-60) % Band Neutrophils % (0-10) % Lymphocytes % (Manual) (20-40) % Atypical Lymphs % % Monocytes % (Manual) (2-10) % Eosinophils % (Manual) (0.8-7.0) % Basophils % (Manual) (0.2-1.2) Platelet Estimate Anisocytosis Macrocytosis RBC Morph Comment PT (9.7-12.0) SECONDS INR Sodium 143 (136-145) mEq/L Potassium 3.8 (3.5-5.1) mEq/L Chloride 104 (98-107) mEq/L Carbon Dioxide 27 (21-32) mEq/L Anion Gap 15.8 H (5-15) BUN 15 (7-18) mg/dL Creatinine 0.8 (0.7-1.3) mg/dL Est Cr Clr Drug Dosing 145.56 mL/min Estimated GFR (MDRD) > 60 (>60) mL/min BUN/Creatinine Ratio 18.8 H (14-18) Glucose 192 H (70-99) mg/dL POC Glucose 316 H (70-99) mg/dL Hemoglobin A1c ( - 5.6) % Lactic Acid (0.4-2.0) mmol/L Calcium 9.0 (8.5-10.1) mg/dL Magnesium 1.8 (1.8-2.4) mg/dL Total Bilirubin 1.4 H (0.2-1.0) mg/dL AST 14 L (15-37) U/L ALT 38 (16-63) U/L Alkaline Phosphatase 70 (46-116) U/L C-Reactive Protein 7.0 H* (<1.0) mg/dL Total Protein 6.6 (6.4-8.2) g/dl Albumin 3.0 L (3.4-5.0) g/dl Globulin 3.6 gm/dL Albumin/Globulin Ratio 0.8 L (1-2) Influenza Type A RNA (NEGATIVE) Influenza Type B RNA (NEGATIVE) SARS-CoV-2 RNA (OZZIE) (NEGATIVE) 09/14/20 Range/Units 06:35 WBC (4.23-9.07) K/mm3 RBC (4.63-6.08) M/mm3 Hgb (13.7-17.5) gm/dl Hct (40.1-51.0) % MCV (79.0-92.2) fl MCH (25.7-32.2) pg MCHC (32.2-35.5) g/dl RDW Std Deviation (35.1-43.9) fL Plt Count (163-337) K/mm3 MPV (9.4-12.3) fl Neut % (Auto) (34.0-67.9) % Lymph % (Auto) (21.8-53.1) % [place] % (Auto) (5.3-12.2) % Eos % (Auto) (0.8-7.0) Baso % (Auto) (0.1-1.2) % Neut # (Auto) (1.78-5.38) K/mm3 Lymph # (Auto) (1.32-3.57) K/mm3 [place] # (Auto) (0.30-0.82) K/mm3 Eos # (Auto) (0.04-0.54) K/mm3 Baso # (Auto) (0.01-0.08) K/mm3 Neutrophils % (Manual) (40-60) % Band Neutrophils % (0-10) % Lymphocytes % (Manual) (20-40) % Atypical Lymphs % % Monocytes % (Manual) (2-10) % Eosinophils % (Manual) (0.8-7.0) % Basophils % (Manual) (0.2-1.2) Platelet Estimate Anisocytosis Macrocytosis RBC Morph Comment PT (9.7-12.0) SECONDS INR Sodium (136-145) mEq/L Potassium (3.5-5.1) mEq/L Chloride (98-107) mEq/L Carbon Dioxide (21-32) mEq/L Anion Gap (5-15) BUN (7-18) mg/dL Creatinine (0.7-1.3) mg/dL Est Cr Clr Drug Dosing mL/min Estimated GFR (MDRD) (>60) mL/min BUN/Creatinine Ratio (14-18) Glucose (70-99) mg/dL POC Glucose 192 H (70-99) mg/dL Hemoglobin A1c ( - 5.6) % Lactic Acid (0.4-2.0) mmol/L Calcium (8.5-10.1) mg/dL Magnesium (1.8-2.4) mg/dL Total Bilirubin (0.2-1.0) mg/dL AST (15-37) U/L ALT (16-63) U/L Alkaline Phosphatase (46-116) U/L C-Reactive Protein (<1.0) mg/dL Total Protein (6.4-8.2) g/dl Albumin (3.4-5.0) g/dl Globulin gm/dL Albumin/Globulin Ratio (1-2) Influenza Type A RNA (NEGATIVE) Influenza Type B RNA (NEGATIVE) SARS-CoV-2 RNA (OZZIE) (NEGATIVE) Med Orders - Current: Current Medications Acetaminophen (Acetaminophen 325 Mg Tab) 650 mg PO Q4H PRN PRN Reason: Pain (Mild 1-3)/fever Docusate Sodium (Docusate Sodium 100 Mg Cap) 100 mg PO BID PRN PRN Reason: Constipation Enoxaparin Sodium (Enoxaparin 40 Mg/0.4 Ml Syringe) 40 mg SUBCUT DAILY [facility] Last Admin: 09/14/20 08:21 Dose: 40 mg Documented by: Fenofibrate (Fenofibrate 54 Mg Tab) 54 mg PO DAILY [facility] Last Admin: 09/14/20 08:21 Dose: 54 mg Documented by: Vancomycin HCl 1 gm/Vancomycin HCl 500 mg/ Sodium Chloride 500 mls @ 250 mls/hr IV Q8H [facility] Insulin Human Regular (Insulin Regular, Human 100 Units/Ml 3 Ml Vial) [facility] Last Admin: 09/13/20 20:40 Dose: 4 unit Documented by: Metformin HCl (Metformin 500 Mg Tab) 1,000 mg PO BIDMEALS [facility] Last Admin: 09/14/20 07:27 Dose: 1,000 mg Documented by: Morphine Sulfate (Morphine 2 Mg/Ml Syringe) 2 mg IVPUSH Q2H PRN PRN Reason: Pain (severe 7-10) Stop: 09/14/20 15:29 Ondansetron HCl (Ondansetron 4 Mg Tab.Dis) 4 mg PO Q4H PRN PRN Reason: nausea, able to take PO Oxycodone HCl (Oxycodone 5 Mg Tab) 5 mg PO Q4H PRN PRN Reason: Pain (moderate 4-6) Sodium Chloride (Sodium Chloride 0.9% 10 Ml Syringe) 10 ml FLUSH ASDIRECTED PRN PRN Reason: Keep Vein Open Last Admin: 09/13/20 13:49 Dose: 10 ml Documented by: Temazepam (Temazepam 15 Mg Cap) 15 mg PO BEDTIME PRN PRN Reason: Sleep Last Admin: 09/13/20 23:30 Dose: 15 mg Documented by: Vancomycin HCl (Pharmacy To Dose - Vancomycin) 1 dose .XX ASDIRECTED PRN PRN Reason: RX TO DOSE VANCO Discontinued Medications Enoxaparin Sodium (Enoxaparin 30 Mg/0.3 Ml Syringe) 30 mg SUBCUT DAILY [facility] Vancomycin HCl 1.5 gm/ Sodium (Chloride) 500 mls @ 250 mls/hr IV ONETIME ONE Stop: 09/13/20 16:59 Last Admin: 09/13/20 16:16 Dose: 250 mls/hr Documented by: Vancomycin HCl 1.5 gm/ Sodium (Chloride) 250 mls @ 250 mls/hr IV Q8H [facility] Last Admin: 09/14/20 01:15 Dose: 250 mls/hr Documented by: Vancomycin HCl (Pharmacy To Dose - Vancomycin) 1 dose .XX ONETIME ONE Stop: 09/13/20 14:46 Vancomycin HCl (Pharmacy To Dose - Vancomycin) 1 dose .XX ASDIRECTED DEMIAN - Exam Quality Assessment: DVT Prophylaxis. No: Supplemental Oxygen, Urine Catheter General: Alert, Oriented, Cooperative, No Acute Distress HEENT: Pupils Equal, Pupils Reactive, EOMI, Mucous Membr. Moist/[place] Neck: Supple, Trachea Midline Lungs: Clear to Auscultation, Normal Respiratory Effort Cardiovascular: Regular Rate, Regular Rhythm GI/Abdominal Exam: Normal Bowel Sounds, Soft, Non-Tender, No Distention (Male) Exam: Deferred Back Exam: Normal Inspection, Full Range of Motion Extremities: Normal Range of Motion, Non-Tender, No Pedal Edema, Normal Capillary Refill, Increased Warmth (Left great toe), Other (Wound on anterior aspect of left great toe. Left toe is swollen, red, and mildly warm. Sensation intact on toe) Peripheral Pulses: 2+: Dorsalis Pedis (L), Dorsalis Pedis (R), 3+: Radial (L), Radial (R) Skin: Warm, Dry, Intact Wound/Incisions: No Drainage, Erythema Improving, Other (Approximately 1 cm circular wound on plantar aspect of left great toe) Neurological: No New Focal Deficit Psy/Mental Status: Alert, Normal Affect, Normal Mood - Patient Data Lab Results Last 24 hrs: Laboratory Results - last 24 hr 09/13/20 09/13/20 09/13/20 Range/Units 13:45 13:45 13:45 WBC (4.23-9.07) K/mm3 RBC (4.63-6.08) M/mm3 Hgb (13.7-17.5) gm/dl Hct (40.1-51.0) % MCV (79.0-92.2) fl MCH (25.7-32.2) pg MCHC (32.2-35.5) g/dl RDW Std Deviation (35.1-43.9) fL Plt Count (163-337) K/mm3 MPV (9.4-12.3) fl Neut % (Auto) (34.0-67.9) % Lymph % (Auto) (21.8-53.1) % [place] % (Auto) (5.3-12.2) % Eos % (Auto) (0.8-7.0) Baso % (Auto) (0.1-1.2) % Neut # (Auto) (1.78-5.38) K/mm3 Lymph # (Auto) (1.32-3.57) K/mm3 [place] # (Auto) (0.30-0.82) K/mm3 Eos # (Auto) (0.04-0.54) K/mm3 Baso # (Auto) (0.01-0.08) K/mm3 Neutrophils % (Manual) (40-60) % Band Neutrophils % (0-10) % Lymphocytes % (Manual) (20-40) % Atypical Lymphs % % Monocytes % (Manual) (2-10) % Eosinophils % (Manual) (0.8-7.0) % Basophils % (Manual) (0.2-1.2) Platelet Estimate Anisocytosis Macrocytosis RBC Morph Comment PT 9.9 (9.7-12.0) SECONDS INR < 0.93 Sodium 140 (136-145) mEq/L Potassium 4.3 (3.5-5.1) mEq/L Chloride 101 (98-107) mEq/L Carbon Dioxide 25 (21-32) mEq/L Anion Gap 18.3 H (5-15) BUN 13 (7-18) mg/dL Creatinine 0.9 (0.7-1.3) mg/dL Est Cr Clr Drug Dosing 129.39 mL/min Estimated GFR (MDRD) > 60 (>60) mL/min BUN/Creatinine Ratio 14.4 (14-18) Glucose 283 H (70-99) mg/dL POC Glucose (70-99) mg/dL Hemoglobin A1c ( - 5.6) % Lactic Acid 1.0 (0.4-2.0) mmol/L Calcium 9.2 (8.5-10.1) mg/dL Magnesium (1.8-2.4) mg/dL Total Bilirubin 2.1 H (0.2-1.0) mg/dL AST 22 (15-37) U/L ALT 58 (16-63) U/L Alkaline Phosphatase 100 (46-116) U/L C-Reactive Protein 11.3 H* (<1.0) mg/dL Total Protein 7.9 (6.4-8.2) g/dl Albumin 3.7 (3.4-5.0) g/dl Globulin 4.2 gm/dL Albumin/Globulin Ratio 0.9 L (1-2) Influenza Type A RNA (NEGATIVE) Influenza Type B RNA (NEGATIVE) SARS-CoV-2 RNA (OZZIE) (NEGATIVE) 09/13/20 09/13/20 09/13/20 Range/Units 13:46 13:46 14:20 WBC 4.15 L (4.23-9.07) K/mm3 RBC 4.03 L (4.63-6.08) M/mm3 Hgb 14.4 D (13.7-17.5) gm/dl Hct 41.1 (40.1-51.0) % MCV 102.0 H D (79.0-92.2) fl MCH 35.7 H (25.7-32.2) pg MCHC 35.0 (32.2-35.5) g/dl RDW Std Deviation 50.3 H (35.1-43.9) fL Plt Count 167 (163-337) K/mm3 MPV 8.3 L (9.4-12.3) fl Neut % (Auto) (34.0-67.9) % Lymph % (Auto) (21.8-53.1) % [place] % (Auto) (5.3-12.2) % Eos % (Auto) (0.8-7.0) Baso % (Auto) (0.1-1.2) % Neut # (Auto) (1.78-5.38) K/mm3 Lymph # (Auto) (1.32-3.57) K/mm3 [place] # (Auto) (0.30-0.82) K/mm3 Eos # (Auto) (0.04-0.54) K/mm3 Baso # (Auto) (0.01-0.08) K/mm3 Neutrophils % (Manual) 69 H (40-60) % Band Neutrophils % 0 (0-10) % Lymphocytes % (Manual) 22 (20-40) % Atypical Lymphs % 0 % Monocytes % (Manual) 6 (2-10) % Eosinophils % (Manual) 3 (0.8-7.0) % Basophils % (Manual) 0 L (0.2-1.2) Platelet Estimate Adequate Anisocytosis 1+ slight Macrocytosis 1+ slight RBC Morph Comment Not Reportable PT (9.7-12.0) SECONDS INR Sodium (136-145) mEq/L Potassium (3.5-5.1) mEq/L Chloride (98-107) mEq/L Carbon Dioxide (21-32) mEq/L Anion Gap (5-15) BUN (7-18) mg/dL Creatinine (0.7-1.3) mg/dL Est Cr Clr Drug Dosing mL/min Estimated GFR (MDRD) (>60) mL/min BUN/Creatinine Ratio (14-18) Glucose (70-99) mg/dL POC Glucose (70-99) mg/dL Hemoglobin A1c 7.5 H ( - 5.6) % Lactic Acid (0.4-2.0) mmol/L Calcium (8.5-10.1) mg/dL Magnesium (1.8-2.4) mg/dL Total Bilirubin (0.2-1.0) mg/dL AST (15-37) U/L ALT (16-63) U/L Alkaline Phosphatase (46-116) U/L C-Reactive Protein (<1.0) mg/dL Total Protein (6.4-8.2) g/dl Albumin (3.4-5.0) g/dl Globulin gm/dL Albumin/Globulin Ratio (1-2) Influenza Type A RNA Negative (NEGATIVE) Influenza Type B RNA Negative (NEGATIVE) SARS-CoV-2 RNA (OZZIE) Negative (NEGATIVE) 09/13/20 09/14/20 09/14/20 Range/Units 19:37 05:45 05:45 WBC 3.99 L (4.23-9.07) K/mm3 RBC 3.31 L (4.63-6.08) M/mm3 Hgb 11.8 L D (13.7-17.5) gm/dl Hct 34.7 L (40.1-51.0) % MCV 104.8 H (79.0-92.2) fl MCH 35.6 H (25.7-32.2) pg MCHC 34.0 (32.2-35.5) g/dl RDW Std Deviation 52.7 H (35.1-43.9) fL Plt Count 157 L (163-337) K/mm3 MPV 8.8 L (9.4-12.3) fl Neut % (Auto) 58.1 (34.0-67.9) % Lymph % (Auto) 27.3 (21.8-53.1) % [place] % (Auto) 10.0 (5.3-12.2) % Eos % (Auto) 2.8 (0.8-7.0) Baso % (Auto) 0.3 (0.1-1.2) % Neut # (Auto) 2.32 (1.78-5.38) K/mm3 Lymph # (Auto) 1.09 L (1.32-3.57) K/mm3 [place] # (Auto) 0.40 (0.30-0.82) K/mm3 Eos # (Auto) 0.11 (0.04-0.54) K/mm3 Baso # (Auto) 0.01 (0.01-0.08) K/mm3 Neutrophils % (Manual) (40-60) % Band Neutrophils % (0-10) % Lymphocytes % (Manual) (20-40) % Atypical Lymphs % % Monocytes % (Manual) (2-10) % Eosinophils % (Manual) (0.8-7.0) % Basophils % (Manual) (0.2-1.2) Platelet Estimate Anisocytosis Macrocytosis RBC Morph Comment PT (9.7-12.0) SECONDS INR Sodium 143 (136-145) mEq/L Potassium 3.8 (3.5-5.1) mEq/L Chloride 104 (98-107) mEq/L Carbon Dioxide 27 (21-32) mEq/L Anion Gap 15.8 H (5-15) BUN 15 (7-18) mg/dL Creatinine 0.8 (0.7-1.3) mg/dL Est Cr Clr Drug Dosing 145.56 mL/min Estimated GFR (MDRD) > 60 (>60) mL/min BUN/Creatinine Ratio 18.8 H (14-18) Glucose 192 H (70-99) mg/dL POC Glucose 316 H (70-99) mg/dL Hemoglobin A1c ( - 5.6) % Lactic Acid (0.4-2.0) mmol/L Calcium 9.0 (8.5-10.1) mg/dL Magnesium 1.8 (1.8-2.4) mg/dL Total Bilirubin 1.4 H (0.2-1.0) mg/dL AST 14 L (15-37) U/L ALT 38 (16-63) U/L Alkaline Phosphatase 70 (46-116) U/L C-Reactive Protein 7.0 H* (<1.0) mg/dL Total Protein 6.6 (6.4-8.2) g/dl Albumin 3.0 L (3.4-5.0) g/dl Globulin 3.6 gm/dL Albumin/Globulin Ratio 0.8 L (1-2) Influenza Type A RNA (NEGATIVE) Influenza Type B RNA (NEGATIVE) SARS-CoV-2 RNA (OZZIE) (NEGATIVE) 09/14/20 Range/Units 06:35 WBC (4.23-9.07) K/mm3 RBC (4.63-6.08) M/mm3 Hgb (13.7-17.5) gm/dl Hct (40.1-51.0) % MCV (79.0-92.2) fl MCH (25.7-32.2) pg MCHC (32.2-35.5) g/dl RDW Std Deviation (35.1-43.9) fL Plt Count (163-337) K/mm3 MPV (9.4-12.3) fl Neut % (Auto) (34.0-67.9) % Lymph % (Auto) (21.8-53.1) % [place] % (Auto) (5.3-12.2) % Eos % (Auto) (0.8-7.0) Baso % (Auto) (0.1-1.2) % Neut # (Auto) (1.78-5.38) K/mm3 Lymph # (Auto) (1.32-3.57) K/mm3 [place] # (Auto) (0.30-0.82) K/mm3 Eos # (Auto) (0.04-0.54) K/mm3 Baso # (Auto) (0.01-0.08) K/mm3 Neutrophils % (Manual) (40-60) % Band Neutrophils % (0-10) % Lymphocytes % (Manual) (20-40) % Atypical Lymphs % % Monocytes % (Manual) (2-10) % Eosinophils % (Manual) (0.8-7.0) % Basophils % (Manual) (0.2-1.2) Platelet Estimate Anisocytosis Macrocytosis RBC Morph Comment PT (9.7-12.0) SECONDS INR Sodium (136-145) mEq/L Potassium (3.5-5.1) mEq/L Chloride (98-107) mEq/L Carbon Dioxide (21-32) mEq/L Anion Gap (5-15) BUN (7-18) mg/dL Creatinine (0.7-1.3) mg/dL Est Cr Clr Drug Dosing mL/min Estimated GFR (MDRD) (>60) mL/min BUN/Creatinine Ratio (14-18) Glucose (70-99) mg/dL POC Glucose 192 H (70-99) mg/dL Hemoglobin A1c ( - 5.6) % Lactic Acid (0.4-2.0) mmol/L Calcium (8.5-10.1) mg/dL Magnesium (1.8-2.4) mg/dL Total Bilirubin (0.2-1.0) mg/dL AST (15-37) U/L ALT (16-63) U/L Alkaline Phosphatase (46-116) U/L C-Reactive Protein (<1.0) mg/dL Total Protein (6.4-8.2) g/dl Albumin (3.4-5.0) g/dl Globulin gm/dL Albumin/Globulin Ratio (1-2) Influenza Type A RNA (NEGATIVE) Influenza Type B RNA (NEGATIVE) SARS-CoV-2 RNA (OZZIE) (NEGATIVE) Result Diagrams: 09/14/20 05:45 09/14/20 05:45 Sepsis Event Note - Evaluation Sepsis Screening Result: No Definite Risk - Focused Exam Vital Signs: Vital Signs Temp Pulse Resp BP Pulse Ox 09/14/20 05:07 97.9 F 92 13 133/81 97 - Problem List & Annotations (1) Diabetic foot ulcer associated with type 2 diabetes mellitus SNOMED Code(s): 2376150214249 Code(s): E11.621 - TYPE 2 DIABETES MELLITUS WITH FOOT ULCER; L97.509 - NON- PRESSURE CHRONIC ULCER OTH PRT UNSP FOOT W UNSP SEVERITY Status: Acute Priority: High Current Visit: Yes Qualifiers: Diabetic foot ulcer location: toe Laterality: left Non-pressure ulcer stage: unspecified non-pressure ulcer stage Qualified Code(s): E11.621 - Type 2 diabetes mellitus with foot ulcer; L97.529 - Non-pressure chronic ulcer of other part of left foot with unspecified severity (2) Diabetes mellitus type 2 in nonobese SNOMED Code(s): 079539536 Code(s): E11.9 - TYPE 2 DIABETES MELLITUS WITHOUT COMPLICATIONS Status: Chronic Priority: High Current Visit: Yes (3) HLD (hyperlipidemia) SNOMED Code(s): 31850902 Code(s): E78.5 - HYPERLIPIDEMIA, UNSPECIFIED Status: Chronic Priority: Low Current Visit: No Qualifiers: Hyperlipidemia type: unspecified Qualified Code(s): E78.5 - Hyperlipidemia, unspecified (4) Sleep disorder SNOMED Code(s): 47923652 Code(s): G47.9 - SLEEP DISORDER, UNSPECIFIED Status: Chronic Priority: Low Current Visit: No - Problem List Review Problem List Initiated/Reviewed/Updated: Yes - Assessment Assessment:: 09/13/2020 The patient is a 40-year-old gentleman who has been admitted as an inpatient for treatment of his reported osteomyelitis. Radiology had over read the x-ray of his left great toe and suspicion was osteomyelitis. The patient has been st arted on vancomycin, pharmacy to dose. Patient will be kept on his home Metformin and placed on insulin sliding scale low-dose. The patient will also have wound care ordered to help assess dressing clean his foot ulcer. He does not require any pain medication at present but it has been made available. The patient is also been placed on DVT prophylaxis with the use of Lovenox 30 mg subcu daily. He will be kept on diabetic diet as tolerated. Repeat laboratory studies have been ordered in the morning. 09/14/2020 40-year-old male admitted to the hospital on 09-13-2020 with suspected osteomyelitis of the left great toe. 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 He noted that time he had a blister on the plantar aspect of his left great toe, which he popped, and things seem to be doing okay. 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 Approximately 2 weeks ago he noticed he was having some drainage and his toe became quite swollen. He states the drainage was purulent in nature. Denies any current or prior pain. A1c was obtained was 7.5. On 04/26/2019 it was noted to be 7.1. Patient is on glipizide and Metformin. States he rarely checks his sugars unless he is feeling poor. He was offered diabetic education and dietitian but refused. Patient states that he knows what to do but is not been taking very good care of himself since Covid. WBC is 3.99. Hemoglobin is 11.8. Platelets 157,000. Neutrophils are normal at 50.1%. Sodium 143. Potassium 3.8. Anion gap is slightly elevated at 15.8. BUN is 15. Creatinine 0.8. GFR greater than 60. Glucose is 192. Magnesium is 1.8. Bilirubin is 1.4. AST is 14, ALT 38, alkaline phosphatase 70. CRP is 7.0. Albumin is 3.0. Wound care has been consulted as there is a 1 cm circular ulcer on the plantar aspect of his left great toe. Orthopedics has been consulted as well and will contact them to discuss the case. MRI has been ordered for the left great toe to confirm osteomyelitis and determine extent. We will continue IV vancomycin with pharmacy to dose. Plan of care will depend on results of MRI. - Plan Plan:: Diabetic foot ulcer associated with type 2 diabetes mellitus * Suspect osteomyelitis - obtain MRI to confirm * PT wound care * Vancomycin - pharmacy to dose * Blood cultures pending * Monitor daily labs * Orthopedic consultation Diabetes mellitus type 2 in nonobese * Continue home metformin * Low dose sliding scale insulin * Hold home glipizide * Refusing primary special educator and equipment application specialist at this time * Blood glucose checks TID with meals * PCP follow-up HLD (hyperlipidemia) * Continue home fenofibrate * No acute concerns Sleep disorder * Hold home hydroxyzine * As needed Restoril for sleep Code status: Full code PCP: Vandana Maddox PA-C DVT prophylaxis: Lovenox Disposition: Patient admitted to the medical floor for management and further work-up of suspected osteomyelitis of his left great toe. Anticipated LOS 2-4 days. Will likely require intermediate school teacher IV abx. <Orlin Bosch M - Last Filed: 09/14/20 14:54> - Patient Data Vitals - Most Recent: Last Vital Signs Temp 36.6 C 09/14/20 10:18 Pulse 100 09/14/20 10:18 Resp 16 09/14/20 10:18 BP 148/87 H 09/14/20 10:18 Pulse Ox 98 09/14/20 10:18 I&O - Last 24 Hours: Intake & Output 09/13/20 09/14/20 09/14/20 22:59 06:59 14:59 Intake Total 0 1050 320 Balance 0 1050 320 Lab Results Last 24 Hours: Laboratory Results - last 24 hr 09/13/20 09/13/20 09/13/20 Range/Units 13:46 14:20 19:37 WBC (4.23-9.07) K/mm3 RBC (4.63-6.08) M/mm3 Hgb (13.7-17.5) gm/dl Hct (40.1-51.0) % MCV (79.0-92.2) fl MCH (25.7-32.2) pg MCHC (32.2-35.5) g/dl RDW Std Deviation (35.1-43.9) fL Plt Count (163-337) K/mm3 MPV (9.4-12.3) fl Neut % (Auto) (34.0-67.9) % Lymph % (Auto) (21.8-53.1) % [place] % (Auto) (5.3-12.2) % Eos % (Auto) (0.8-7.0) Baso % (Auto) (0.1-1.2) % Neut # (Auto) (1.78-5.38) K/mm3 Lymph # (Auto) (1.32-3.57) K/mm3 [place] # (Auto) (0.30-0.82) K/mm3 Eos # (Auto) (0.04-0.54) K/mm3 Baso # (Auto) (0.01-0.08) K/mm3 Sodium (136-145) mEq/L Potassium (3.5-5.1) mEq/L Chloride (98-107) mEq/L Carbon Dioxide (21-32) mEq/L Anion Gap (5-15) BUN (7-18) mg/dL Creatinine (0.7-1.3) mg/dL Est Cr Clr Drug Dosing mL/min Estimated GFR (MDRD) (>60) mL/min BUN/Creatinine Ratio (14-18) Glucose (70-99) mg/dL POC Glucose 316 H (70-99) mg/dL Hemoglobin A1c 7.5 H ( - 5.6) % Calcium (8.5-10.1) mg/dL Magnesium (1.8-2.4) mg/dL Total Bilirubin (0.2-1.0) mg/dL AST (15-37) U/L ALT (16-63) U/L Alkaline Phosphatase (46-116) U/L C-Reactive Protein (<1.0) mg/dL Total Protein (6.4-8.2) g/dl Albumin (3.4-5.0) g/dl Globulin gm/dL Albumin/Globulin Ratio (1-2) Influenza Type A RNA Negative (NEGATIVE) Influenza Type B RNA Negative (NEGATIVE) SARS-CoV-2 RNA (OZZIE) Negative (NEGATIVE) 09/14/20 09/14/20 09/14/20 Range/Units 05:45 05:45 06:35 WBC 3.99 L (4.23-9.07) K/mm3 RBC 3.31 L (4.63-6.08) M/mm3 Hgb 11.8 L D (13.7-17.5) gm/dl Hct 34.7 L (40.1-51.0) % MCV 104.8 H (79.0-92.2) fl MCH 35.6 H (25.7-32.2) pg MCHC 34.0 (32.2-35.5) g/dl RDW Std Deviation 52.7 H (35.1-43.9) fL Plt Count 157 L (163-337) K/mm3 MPV 8.8 L (9.4-12.3) fl Neut % (Auto) 58.1 (34.0-67.9) % Lymph % (Auto) 27.3 (21.8-53.1) % [place] % (Auto) 10.0 (5.3-12.2) % Eos % (Auto) 2.8 (0.8-7.0) Baso % (Auto) 0.3 (0.1-1.2) % Neut # (Auto) 2.32 (1.78-5.38) K/mm3 Lymph # (Auto) 1.09 L (1.32-3.57) K/mm3 [place] # (Auto) 0.40 (0.30-0.82) K/mm3 Eos # (Auto) 0.11 (0.04-0.54) K/mm3 Baso # (Auto) 0.01 (0.01-0.08) K/mm3 Sodium 143 (136-145) mEq/L Potassium 3.8 (3.5-5.1) mEq/L Chloride 104 (98-107) mEq/L Carbon Dioxide 27 (21-32) mEq/L Anion Gap 15.8 H (5-15) BUN 15 (7-18) mg/dL Creatinine 0.8 (0.7-1.3) mg/dL Est Cr Clr Drug Dosing 145.56 mL/min Estimated GFR (MDRD) > 60 (>60) mL/min BUN/Creatinine Ratio 18.8 H (14-18) Glucose 192 H (70-99) mg/dL POC Glucose 192 H (70-99) mg/dL Hemoglobin A1c ( - 5.6) % Calcium 9.0 (8.5-10.1) mg/dL Magnesium 1.8 (1.8-2.4) mg/dL Total Bilirubin 1.4 H (0.2-1.0) mg/dL AST 14 L (15-37) U/L ALT 38 (16-63) U/L Alkaline Phosphatase 70 (46-116) U/L C-Reactive Protein 7.0 H* (<1.0) mg/dL Total Protein 6.6 (6.4-8.2) g/dl Albumin 3.0 L (3.4-5.0) g/dl Globulin 3.6 gm/dL Albumin/Globulin Ratio 0.8 L (1-2) Influenza Type A RNA (NEGATIVE) Influenza Type B RNA (NEGATIVE) SARS-CoV-2 RNA (OZZIE) (NEGATIVE) 09/14/20 Range/Units 10:17 WBC (4.23-9.07) K/mm3 RBC (4.63-6.08) M/mm3 Hgb (13.7-17.5) gm/dl Hct (40.1-51.0) % MCV (79.0-92.2) fl MCH (25.7-32.2) pg MCHC (32.2-35.5) g/dl RDW Std Deviation (35.1-43.9) fL Plt Count (163-337) K/mm3 MPV (9.4-12.3) fl Neut % (Auto) (34.0-67.9) % Lymph % (Auto) (21.8-53.1) % [place] % (Auto) (5.3-12.2) % Eos % (Auto) (0.8-7.0) Baso % (Auto) (0.1-1.2) % Neut # (Auto) (1.78-5.38) K/mm3 Lymph # (Auto) (1.32-3.57) K/mm3 [place] # (Auto) (0.30-0.82) K/mm3 Eos # (Auto) (0.04-0.54) K/mm3 Baso # (Auto) (0.01-0.08) K/mm3 Sodium (136-145) mEq/L Potassium (3.5-5.1) mEq/L Chloride (98-107) mEq/L Carbon Dioxide (21-32) mEq/L Anion Gap (5-15) BUN (7-18) mg/dL Creatinine (0.7-1.3) mg/dL Est Cr Clr Drug Dosing mL/min Estimated GFR (MDRD) (>60) mL/min BUN/Creatinine Ratio (14-18) Glucose (70-99) mg/dL POC Glucose 318 H (70-99) mg/dL Hemoglobin A1c ( - 5.6) % Calcium (8.5-10.1) mg/dL Magnesium (1.8-2.4) mg/dL Total Bilirubin (0.2-1.0) mg/dL AST (15-37) U/L ALT (16-63) U/L Alkaline Phosphatase (46-116) U/L C-Reactive Protein (<1.0) mg/dL Total Protein (6.4-8.2) g/dl Albumin (3.4-5.0) g/dl Globulin gm/dL Albumin/Globulin Ratio (1-2) Influenza Type A RNA (NEGATIVE) Influenza Type B RNA (NEGATIVE) SARS-CoV-2 RNA (OZZIE) (NEGATIVE) Med Orders - Current: Current Medications Acetaminophen (Acetaminophen 325 Mg Tab) 650 mg PO Q4H PRN PRN Reason: Pain (Mild 1-3)/fever Docusate Sodium (Docusate Sodium 100 Mg Cap) 100 mg PO BID PRN PRN Reason: Constipation Enoxaparin Sodium (Enoxaparin 40 Mg/0.4 Ml Syringe) 40 mg SUBCUT DAILY [facility] Last Admin: 09/14/20 08:21 Dose: 40 mg Documented by: Fenofibrate (Fenofibrate 54 Mg Tab) 54 mg PO DAILY [facility] Last Admin: 09/14/20 08:21 Dose: 54 mg Documented by: Vancomycin HCl 1 gm/Vancomycin HCl 500 mg/ Sodium Chloride 500 mls @ 250 mls/hr IV Q8H [facility] Last Admin: 09/14/20 08:48 Dose: 250 mls/hr Documented by: Ceftriaxone Sodium 2 gm/ (Sodium Chloride) 100 mls @ 200 mls/hr IV Q24H [facility] Last Admin: 09/14/20 14:20 Dose: 200 mls/hr Documented by: Insulin Human Regular (Insulin Regular, Human 100 Units/Ml 3 Ml Vial) [facility] Protocol Last Admin: 09/14/20 13:25 Dose: 4 unit Documented by: Metformin HCl (Metformin 500 Mg Tab) 1,000 mg PO BIDMEALS [facility] Last Admin: 09/14/20 07:27 Dose: 1,000 mg Documented by: Morphine Sulfate (Morphine 2 Mg/Ml Syringe) 2 mg IVPUSH Q2H PRN PRN Reason: Pain (severe 7-10) Stop: 09/14/20 15:29 Ondansetron HCl (Ondansetron 4 Mg Tab.Dis) 4 mg PO Q4H PRN PRN Reason: nausea, able to take PO Oxycodone HCl (Oxycodone 5 Mg Tab) 5 mg PO Q4H PRN PRN Reason: Pain (moderate 4-6) Sodium Chloride (Sodium Chloride 0.9% 10 Ml Syringe) 10 ml FLUSH ASDIRECTED PRN PRN Reason: Keep Vein Open Last Admin: 09/13/20 13:49 Dose: 10 ml Documented by: Temazepam (Temazepam 15 Mg Cap) 15 mg PO BEDTIME PRN PRN Reason: Sleep Last Admin: 09/13/20 23:30 Dose: 15 mg Documented by: Vancomycin HCl (Pharmacy To Dose - Vancomycin) 1 dose .XX ASDIRECTED PRN PRN Reason: RX TO DOSE VANCO Discontinued Medications Enoxaparin Sodium (Enoxaparin 30 Mg/0.3 Ml Syringe) 30 mg SUBCUT DAILY [facility] Gadobenate Dimeglumine (Gadobenate Dimeglumine 529 Mg/Ml 20 Ml Sdv) 19 ml IVPUSH ONETIME ONE Stop: 09/14/20 11:01 Last Admin: 09/14/20 11:26 Dose: 19 ml Documented by: Glipizide (Glipizide 5 Mg Tab.Er) 5 mg PO DAILY [facility] Vancomycin HCl 1.5 gm/ Sodium (Chloride) 500 mls @ 250 mls/hr IV ONETIME ONE Stop: 09/13/20 16:59 Last Admin: 09/13/20 16:16 Dose: 250 mls/hr Documented by: Vancomycin HCl 1.5 gm/ Sodium (Chloride) 250 mls @ 250 mls/hr IV Q8H [facility] Last Admin: 09/14/20 01:15 Dose: 250 mls/hr Documented by: Sodium Chloride (Sodium Chloride 0.9% 10 Ml Syringe) 20 ml FLUSH ASDIRECTED [facility] Stop: 09/14/20 14:00 Last Admin: 09/14/20 11:26 Dose: 20 ml Documented by: Vancomycin HCl (Pharmacy To Dose - Vancomycin) 1 dose .XX ONETIME ONE Stop: 09/13/20 14:46 Vancomycin HCl (Pharmacy To Dose - Vancomycin) 1 dose .XX ASDIRECTED [facility] - Patient Data Lab Results Last 24 hrs: Laboratory Results - last 24 hr 09/13/20 09/13/20 09/13/20 Range/Units 13:46 14:20 19:37 WBC (4.23-9.07) K/mm3 RBC (4.63-6.08) M/mm3 Hgb (13.7-17.5) gm/dl Hct (40.1-51.0) % MCV (79.0-92.2) fl MCH (25.7-32.2) pg MCHC (32.2-35.5) g/dl RDW Std Deviation (35.1-43.9) fL Plt Count (163-337) K/mm3 MPV (9.4-12.3) fl Neut % (Auto) (34.0-67.9) % Lymph % (Auto) (21.8-53.1) % [place] % (Auto) (5.3-12.2) % Eos % (Auto) (0.8-7.0) Baso % (Auto) (0.1-1.2) % Neut # (Auto) (1.78-5.38) K/mm3 Lymph # (Auto) (1.32-3.57) K/mm3 [place] # (Auto) (0.30-0.82) K/mm3 Eos # (Auto) (0.04-0.54) K/mm3 Baso # (Auto) (0.01-0.08) K/mm3 Sodium (136-145) mEq/L Potassium (3.5-5.1) mEq/L Chloride (98-107) mEq/L Carbon Dioxide (21-32) mEq/L Anion Gap (5-15) BUN (7-18) mg/dL Creatinine (0.7-1.3) mg/dL Est Cr Clr Drug Dosing mL/min Estimated GFR (MDRD) (>60) mL/min BUN/Creatinine Ratio (14-18) Glucose (70-99) mg/dL POC Glucose 316 H (70-99) mg/dL Hemoglobin A1c 7.5 H ( - 5.6) % Calcium (8.5-10.1) mg/dL Magnesium (1.8-2.4) mg/dL Total Bilirubin (0.2-1.0) mg/dL AST (15-37) U/L ALT (16-63) U/L Alkaline Phosphatase (46-116) U/L C-Reactive Protein (<1.0) mg/dL Total Protein (6.4-8.2) g/dl Albumin (3.4-5.0) g/dl Globulin gm/dL Albumin/Globulin Ratio (1-2) Influenza Type A RNA Negative (NEGATIVE) Influenza Type B RNA Negative (NEGATIVE) SARS-CoV-2 RNA (OZZIE) Negative (NEGATIVE) 09/14/20 09/14/20 09/14/20 Range/Units 05:45 05:45 06:35 WBC 3.99 L (4.23-9.07) K/mm3 RBC 3.31 L (4.63-6.08) M/mm3 Hgb 11.8 L D (13.7-17.5) gm/dl Hct 34.7 L (40.1-51.0) % MCV 104.8 H (79.0-92.2) fl MCH 35.6 H (25.7-32.2) pg MCHC 34.0 (32.2-35.5) g/dl RDW Std Deviation 52.7 H (35.1-43.9) fL Plt Count 157 L (163-337) K/mm3 MPV 8.8 L (9.4-12.3) fl Neut % (Auto) 58.1 (34.0-67.9) % Lymph % (Auto) 27.3 (21.8-53.1) % [place] % (Auto) 10.0 (5.3-12.2) % Eos % (Auto) 2.8 (0.8-7.0) Baso % (Auto) 0.3 (0.1-1.2) % Neut # (Auto) 2.32 (1.78-5.38) K/mm3 Lymph # (Auto) 1.09 L (1.32-3.57) K/mm3 [place] # (Auto) 0.40 (0.30-0.82) K/mm3 Eos # (Auto) 0.11 (0.04-0.54) K/mm3 Baso # (Auto) 0.01 (0.01-0.08) K/mm3 Sodium 143 (136-145) mEq/L Potassium 3.8 (3.5-5.1) mEq/L Chloride 104 (98-107) mEq/L Carbon Dioxide 27 (21-32) mEq/L Anion Gap 15.8 H (5-15) BUN 15 (7-18) mg/dL Creatinine 0.8 (0.7-1.3) mg/dL Est Cr Clr Drug Dosing 145.56 mL/min Estimated GFR (MDRD) > 60 (>60) mL/min BUN/Creatinine Ratio 18.8 H (14-18) Glucose 192 H (70-99) mg/dL POC Glucose 192 H (70-99) mg/dL Hemoglobin A1c ( - 5.6) % Calcium 9.0 (8.5-10.1) mg/dL Magnesium 1.8 (1.8-2.4) mg/dL Total Bilirubin 1.4 H (0.2-1.0) mg/dL AST 14 L (15-37) U/L ALT 38 (16-63) U/L Alkaline Phosphatase 70 (46-116) U/L C-Reactive Protein 7.0 H* (<1.0) mg/dL Total Protein 6.6 (6.4-8.2) g/dl Albumin 3.0 L (3.4-5.0) g/dl Globulin 3.6 gm/dL Albumin/Globulin Ratio 0.8 L (1-2) Influenza Type A RNA (NEGATIVE) Influenza Type B RNA (NEGATIVE) SARS-CoV-2 RNA (OZZIE) (NEGATIVE) 09/14/20 Range/Units 10:17 WBC (4.23-9.07) K/mm3 RBC (4.63-6.08) M/mm3 Hgb (13.7-17.5) gm/dl Hct (40.1-51.0) % MCV (79.0-92.2) fl MCH (25.7-32.2) pg MCHC (32.2-35.5) g/dl RDW Std Deviation (35.1-43.9) fL Plt Count (163-337) K/mm3 MPV (9.4-12.3) fl Neut % (Auto) (34.0-67.9) % Lymph % (Auto) (21.8-53.1) % [place] % (Auto) (5.3-12.2) % Eos % (Auto) (0.8-7.0) Baso % (Auto) (0.1-1.2) % Neut # (Auto) (1.78-5.38) K/mm3 Lymph # (Auto) (1.32-3.57) K/mm3 [place] # (Auto) (0.30-0.82) K/mm3 Eos # (Auto) (0.04-0.54) K/mm3 Baso # (Auto) (0.01-0.08) K/mm3 Sodium (136-145) mEq/L Potassium (3.5-5.1) mEq/L Chloride (98-107) mEq/L Carbon Dioxide (21-32) mEq/L Anion Gap (5-15) BUN (7-18) mg/dL Creatinine (0.7-1.3) mg/dL Est Cr Clr Drug Dosing mL/min Estimated GFR (MDRD) (>60) mL/min BUN/Creatinine Ratio (14-18) Glucose (70-99) mg/dL POC Glucose 318 H (70-99) mg/dL Hemoglobin A1c ( - 5.6) % Calcium (8.5-10.1) mg/dL Magnesium (1.8-2.4) mg/dL Total Bilirubin (0.2-1.0) mg/dL AST (15-37) U/L ALT (16-63) U/L Alkaline Phosphatase (46-116) U/L C-Reactive Protein (<1.0) mg/dL Total Protein (6.4-8.2) g/dl Albumin (3.4-5.0) g/dl Globulin gm/dL Albumin/Globulin Ratio (1-2) Influenza Type A RNA (NEGATIVE) Influenza Type B RNA (NEGATIVE) SARS-CoV-2 RNA (OZZIE) (NEGATIVE) Result Diagrams: 09/14/20 05:45 09/14/20 05:45 Sepsis Event Note - Focused Exam Vital Signs: Vital Signs Temp Pulse Resp BP Pulse Ox 09/14/20 10:18 36.6 C 100 16 148/87 H 98 09/14/20 05:07 36.6 C 92 13 133/81 97 - Problem List & Annotations (1) Diabetic foot ulcer associated with type 2 diabetes mellitus SNOMED Code(s): 1762149584832 Code(s): E11.621 - TYPE 2 DIABETES MELLITUS WITH FOOT ULCER; L97.509 - NON- PRESSURE CHRONIC ULCER OTH PRT UNSP FOOT W UNSP SEVERITY Status: Acute Priority: High Current Visit: Yes Qualifiers: Diabetic foot ulcer location: toe Laterality: left Non-pressure ulcer stage: unspecified non-pressure ulcer stage Qualified Code(s): E11.621 - Type 2 diabetes mellitus with foot ulcer; L97.529 - Non-pressure chronic ulcer of other part of left foot with unspecified severity (2) Diabetes mellitus type 2 in nonobese SNOMED Code(s): 110477697 Code(s): E11.9 - TYPE 2 DIABETES MELLITUS WITHOUT COMPLICATIONS Status: Chr onic Priority: High Current Visit: Yes - My Orders Last 24 Hours: My Active Orders 09/13/20 15:24 Blood Glucose Check, Bedside [RC] TIDMEALS Up ad Elena [RC] ASDIRECTED OT Evaluation and Treatment [CONS] Routine PT Evaluation and Treatment [CONS] Routine Acetaminophen [TylenoL] 650 mg PO Q4H PRN Docusate Sodium [Colace] 100 mg PO BID PRN Morphine 2 mg IVPUSH Q2H PRN Ondansetron [Zofran ODT] 4 mg PO Q4H PRN Temazepam [Restoril] 15 mg PO BEDTIME PRN oxyCODONE 5 mg PO Q4H PRN Glucose Management Sub Q Reflex [OM.PC] Click to Edit Resuscitation Status Routine 09/13/20 15:25 Patient Status [ADT] Routine Oxygen Therapy [RC] PRN VTE/DVT Education [RC] PER UNIT ROUTINE Vital Signs [RC] 10,16,22,04 09/13/20 15:30 Diabetes Education [RC] Click to Edit 09/13/20 Dinner Consistent Carbohydrate Diet [DIET] metFORMIN [Glucophage] 1,000 mg PO BIDMEALS 09/13/20 19:00 Insulin Regular, Human [HumuLIN R] See Protocol SUBCUT [facility] 09/14/20 06:53 Consult to Physician [CONS] Routine 09/14/20 06:54 Notify Provider Consults [RC] ASDIRECTED 09/14/20 09:00 Enoxaparin [Lovenox] 40 mg SUBCUT DAILY Fenofibrate 54 mg PO DAILY Vancomycin 1 gm Vancomycin 500 mg Sodium Chloride 0.9% [Normal Saline] 500 ml IV Q8H - Plan Plan:: I have seen and examined the patient independently of physician commercial real estate assistant Stew Galeano and have discussed the case with him. I have reviewed and agree with the plan of care as outlined by him for this patient. Please see orders.
[2020-09-14] MEDS: Insulin Regular, Human 100 Units/ML 3 ML Vial SUBCUT SCH ×3 (08:47→18:57)
[2020-09-14] MEDS: Vancomycin 1 GM, Vancomycin 500 MG in Sodium Chloride 0.9% 500 ML IV SCH ×2 (08:48→17:02)
[2020-09-14] MEDS ORDERED: Enoxaparin 30 MG/0.3 ML Syringe SUBCUT SCH (09:00)
[2020-09-14] MEDS ORDERED: glipiZIDE 5 MG Tab.ER PO SCH (09:30)
[2020-09-14] MEDS ORDERED: Gadobenate Dimeglumine 529 MG/ML 20 ML SDV IVPUSH ONE (11:00)
[2020-09-14] MEDS ORDERED: Sodium Chloride 0.9% 10 ML Syringe FLUSH SCH (11:00)
--- NOTE | 2020-09-14 12:00 | MR ---
MRI left foot (without and with intravenous contrast) Technique: T1 and inversion recovery sagittal; T2 fat-suppressed, T2 and proton weighted coronal; T1 and T2 fat-suppressed axial; T1 fat-suppressed postcontrast axial, coronal and sagittal images were obtained. Images were centered to the first toe. Comparison: Prior plain film toe study of 09/13/20. Findings: Edema is identified within the proximal and distal phalanx of the first toe. There is also enhancement being seen within this digit compatible with osteomyelitis. There is also cystic change within the base of the proximal phalanx of the first toe which most likely is old although less likely could represent an abscess. Diffuse enhancement and soft tissue swelling is seen within the first toe extending proximal along the first metatarsal. There is some edema being seen within the anterior and posterior aspects of other portions of the foot at the metatarsal level. No other areas of bone marrow edema are seen. Impression: 1. Findings compatible with diffuse cellulitis mostly involving the first toe. 2. Edema as well as enhancement within the proximal and distal phalanx of the first toe compatible with osteomyelitis. 3. Cystic area within the base of the proximal phalanx of the first toe most likely old and less likely due to a bone abscess. Diagnostic code #3
[2020-09-14] MEDS: cefTRIAXone 2 GM in Sodium Chloride 0.9% 100 ML IV SCH (14:20)
[2020-09-14] MEDS: Temazepam 15 MG Cap PO PRN (22:16)
[2020-09-15] MEDS: Vancomycin 1 GM, Vancomycin 500 MG in Sodium Chloride 0.9% 500 ML IV SCH ×2 (00:02→00:27)
[2020-09-15] MEDS: metFORMIN 500 MG Tab PO SCH ×2 (06:07→18:28)
[2020-09-15] MEDS ORDERED: Magnesium Sulfate/Water 2 GM in Premix Bag 1 BAG IV ONE (07:55)
[2020-09-15] MEDS: Insulin Regular, Human 100 Units/ML 3 ML Vial SUBCUT SCH ×3 (08:31→18:33)
[2020-09-15] MEDS: Fenofibrate 54 MG Tab PO SCH (08:33)
[2020-09-15] MEDS: Enoxaparin 40 MG/0.4 ML Syringe SUBCUT SCH (08:34)
[2020-09-15] MEDS ORDERED: Vancomycin 1.75 GM in Sodium Chloride 0.9% 500 ML IV SCH (09:00)
--- NOTE | 2020-09-15 10:52 | PCM.DCSUM1 ---
Discharge Summary - Hospital Course Diagnosis: Stroke: No - Discharge Data Discharge Date: 09/15/20 (Admit date: 09/13/2020) Discharge Disposition: Home, Self-Care 01 Condition: Good - Referral to Home Health Primary Care Physician: Vandana Maddox PA-C - Discharge Diagnosis/Problem(s) (1) Diabetic foot ulcer associated with type 2 diabetes mellitus SNOMED Code(s): 9771784828384 ICD Code: E11.621 - TYPE 2 DIABETES MELLITUS WITH FOOT ULCER; L97.509 - NON- PRESSURE CHRONIC ULCER OTH PRT UNSP FOOT W UNSP SEVERITY Status: Acute Priority: High Current Visit: Yes Qualifiers: Diabetic foot ulcer location: toe Laterality: left Non-pressure ulcer stage: unspecified non-pressure ulcer stage Qualified Code(s): E11.621 - Type 2 diabetes mellitus with foot ulcer; L97.529 - Non-pressure chronic ulcer of other part of left foot with unspecified severity (2) Diabetes mellitus type 2 in nonobese SNOMED Code(s): 841439047 ICD Code: E11.9 - TYPE 2 DIABETES MELLITUS WITHOUT COMPLICATIONS Status: Chronic Priority: High Current Visit: Yes (3) HLD (hyperlipidemia) SNOMED Code(s): 47310279 ICD Code: E78.5 - HYPERLIPIDEMIA, UNSPECIFIED Status: Chronic Priority: Low Current Visit: No Qualifiers: Hyperlipidemia type: unspecified Qualified Code(s): E78.5 - Hyperlipidemia, unspecified (4) Sleep disorder SNOMED Code(s): 57611364 ICD Code: G47.9 - SLEEP DISORDER, UNSPECIFIED Status: Chronic Priority: Low Current Visit: No (5) Osteomyelitis of great toe of left foot SNOMED Code(s): 367786413, 384806194, 8369949744220748 ICD Code: M86.9 - OSTEOMYELITIS, UNSPECIFIED Status: Acute Priority: High Current Visit: Yes - Patient Summary/Data Consults: Consultations 09/13/20 15:24 OT Evaluation and Treatment [CONS] Routine PT Evaluation and Treatment [CONS] Routine 09/14/20 06:53 Consult to Physician [CONS] Routine - Patient Instructions Diet: Diabetic Diet Activity: As Tolerated Driving: Do Not Drive (today ) Showering/Bathing: May Shower Wound/Incision Care: Keep Operative Site/Wound Site Clean and Dry, Change Dressing Daily (as needed - nursing will do when recieving infusions) Notify Provider of: Fever, Increased Pain, Nausea and/or Vomiting Other/Special Instructions: Follow-up with primary care provider within 7-10 days of discharge, sooner if needed. Follow-up with Dr. Tobias's office within 2 weeks of discharge. Follow-up with podiatry outpatient. It is very important that you follow directions to recieve your antibioitic infusions, if not you may loose your toe. As we discussed, monitor your blood glucose readings as before, watch your diet, and discuss your blood glucose readings with your primary care provider. Should symptoms return or worsen contact your primary care provider or return to the Emergency Department. - Discharge Plan *PRESCRIPTION DRUG MONITORING PROGRAM REVIEWED*: No *COPY OF PRESCRIPTION DRUG MONITORING REPORT IN PATIENT ALIN: No Home Medications: Home Meds Cholecalciferol (Vitamin D3) [Vitamin D3] 2,000 unit PO DAILY 06/13/18 [History] Fenofibrate 54 mg PO DAILY 06/13/18 [History] hydrOXYzine HCL [hydrOXYzine] 25 - 50 mg PO BEDTIME PRN 06/13/18 [History] metFORMIN [Glucophage XR] 1,000 mg PO BID 09/13/20 [History] glipiZIDE [Glucotrol XL] 5 mg PO DAILY 09/14/20 [History] Oxygen Therapy Mode: Room Air Patient Handouts: Osteomyelitis, Adult, Type 2 Diabetes Mellitus, Self Care, Adult, [id number]-[id number], PICC Home Care Guide, Sepsis, Self Care, Adult Forms: ED Department Discharge Referrals: Matteo Tobias MD [Physician] - 10/05/20 9:00 am (Please check-in by 8:45am.) Vandana Maddox PA-C [Primary Care Provider] - - Discharge Summary/Plan Comment DC Time >30 min.: Yes (45 mins ) - Patient Data Vitals - Most Recent: Last Vital Signs Temp 98.1 F 09/15/20 10:04 Pulse 106 H 09/15/20 10:04 Resp 16 09/15/20 10:04 BP 132/69 09/15/20 10:04 Pulse Ox 95 09/15/20 10:04 Weight - Most Recent: 209 lb 3.2 oz I&O - Last 24 hours: Intake & Output 0709/15/20 09/15/20 22:59 06:59 14:59 Intake Total 1420 1250 Balance 1420 1250 Lab Results - Last 24 hrs: Laboratory Results - last 24 hr 09/14/20 09/15/20 09/15/20 Range/Units 17:00 06:07 06:18 WBC 4.05 L (4.23-9.07) K/mm3 RBC 3.58 L (4.63-6.08) M/mm3 Hgb 12.8 L (13.7-17.5) gm/dl Hct 37.1 L (40.1-51.0) % MCV 103.6 H (79.0-92.2) fl MCH 35.8 H (25.7-32.2) pg MCHC 34.5 (32.2-35.5) g/dl RDW Std Deviation 51.8 H (35.1-43.9) fL Plt Count 148 L (163-337) K/mm3 MPV 8.4 L (9.4-12.3) fl Neut % (Auto) 60.4 (34.0-67.9) % Lymph % (Auto) 26.2 (21.8-53.1) % Gentry % (Auto) 8.9 (5.3-12.2) % Eos % (Auto) 2.0 (0.8-7.0) Baso % (Auto) 0.5 (0.1-1.2) % Neut # (Auto) 2.45 (1.78-5.38) K/mm3 Lymph # (Auto) 1.06 L (1.32-3.57) K/mm3 Gentry # (Auto) 0.36 (0.30-0.82) K/mm3 Eos # (Auto) 0.08 (0.04-0.54) K/mm3 Baso # (Auto) 0.02 (0.01-0.08) K/mm3 Sodium (136-145) mEq/L Potassium (3.5-5.1) mEq/L Chloride (98-107) mEq/L Carbon Dioxide (21-32) mEq/L Anion Gap (5-15) BUN (7-18) mg/dL Creatinine (0.7-1.3) mg/dL Est Cr Clr Drug Dosing mL/min Estimated GFR (MDRD) (>60) mL/min BUN/Creatinine Ratio (14-18) Glucose (70-99) mg/dL POC Glucose 261 H 240 H (70-99) mg/dL Calcium (8.5-10.1) mg/dL Magnesium (1.8-2.4) mg/dL Total Bilirubin (0.2-1.0) mg/dL AST (15-37) U/L ALT (16-63) U/L Alkaline Phosphatase (46-116) U/L C-Reactive Protein (<1.0) mg/dL Total Protein (6.4-8.2) g/dl Albumin (3.4-5.0) g/dl Globulin gm/dL Albumin/Globulin Ratio (1-2) Vancomycin Trough (10.0-20.0) 09/15/20 09/15/20 Range/Units 06:18 07:59 WBC (4.23-9.07) K/mm3 RBC (4.63-6.08) M/mm3 Hgb (13.7-17.5) gm/dl Hct (40.1-51.0) % MCV (79.0-92.2) fl MCH (25.7-32.2) pg MCHC (32.2-35.5) g/dl RDW Std Deviation (35.1-43.9) fL Plt Count (163-337) K/mm3 MPV (9.4-12.3) fl Neut % (Auto) (34.0-67.9) % Lymph % (Auto) (21.8-53.1) % Gentry % (Auto) (5.3-12.2) % Eos % (Auto) (0.8-7.0) Baso % (Auto) (0.1-1.2) % Neut # (Auto) (1.78-5.38) K/mm3 Lymph # (Auto) (1.32-3.57) K/mm3 Gentry # (Auto) (0.30-0.82) K/mm3 Eos # (Auto) (0.04-0.54) K/mm3 Baso # (Auto) (0.01-0.08) K/mm3 Sodium 141 (136-145) mEq/L Potassium 3.9 (3.5-5.1) mEq/L Chloride 105 (98-107) mEq/L Carbon Dioxide 27 (21-32) mEq/L Anion Gap 12.9 (5-15) BUN 11 (7-18) mg/dL Creatinine 0.7 (0.7-1.3) mg/dL Est Cr Clr Drug Dosing 166.36 mL/min Estimated GFR (MDRD) > 60 (>60) mL/min BUN/Creatinine Ratio 15.7 (14-18) Glucose 261 H (70-99) mg/dL POC Glucose (70-99) mg/dL Calcium 9.1 (8.5-10.1) mg/dL Magnesium 1.6 L (1.8-2.4) mg/dL Total Bilirubin 1.0 (0.2-1.0) mg/dL AST 20 (15-37) U/L ALT 45 (16-63) U/L Alkaline Phosphatase 67 (46-116) U/L C-Reactive Protein 3.4 H* (<1.0) mg/dL Total Protein 6.5 (6.4-8.2) g/dl Albumin 2.9 L (3.4-5.0) g/dl Globulin 3.6 gm/dL Albumin/Globulin Ratio 0.8 L (1-2) Vancomycin Trough 12.8 (10.0-20.0) Med Orders - Current: Current Medications Acetaminophen (Acetaminophen 325 Mg Tab) 650 mg PO Q4H PRN PRN Reason: Pain (Mild 1-3)/fever Docusate Sodium (Docusate Sodium 100 Mg Cap) 100 mg PO BID PRN PRN Reason: Constipation Enoxaparin Sodium (Enoxaparin 40 Mg/0.4 Ml Syringe) 40 mg SUBCUT DAILY [facility] Last Admin: 09/15/20 08:34 Dose: Not Given Documented by: Fenofibrate (Fenofibrate 54 Mg Tab) 54 mg PO DAILY [facility] Last Admin: 09/15/20 08:33 Dose: 54 mg Documented by: Ceftriaxone Sodium 2 gm/ (Sodium Chloride) 100 mls @ 200 mls/hr IV Q24H [facility] Last Admin: 09/14/20 14:20 Dose: 200 mls/hr Documented by: Vancomycin HCl 1.75 gm/ Sodium (Chloride) 500 mls @ 250 mls/hr IV Q8H [facility] Insulin Human Regular (Insulin Regular, Human 100 Units/Ml 3 Ml Vial) 0 unit SUBCUT TIDPC [facility]; Protocol Last Admin: 09/15/20 08:31 Dose: 4 unit Documented by: Metformin HCl (Metformin 500 Mg Tab) 1,000 mg PO BIDMEALS [facility] Last Admin: 09/15/20 06:07 Dose: 1,000 mg Documented by: Ondansetron HCl (Ondansetron 4 Mg Tab.Dis) 4 mg PO Q4H PRN PRN Reason: nausea, able to take PO Oxycodone HCl (Oxycodone 5 Mg Tab) 5 mg PO Q4H PRN PRN Reason: Pain (moderate 4-6) Sodium Chloride (Sodium Chloride 0.9% 10 Ml Syringe) 10 ml FLUSH ASDIRECTED PRN PRN Reason: Keep Vein Open Last Admin: 09/13/20 13:49 Dose: 10 ml Documented by: Temazepam (Temazepam 15 Mg Cap) 15 mg PO BEDTIME PRN PRN Reason: Sleep Last Admin: 09/14/20 22:16 Dose: 15 mg Documented by: Vancomycin HCl (Pharmacy To Dose - Vancomycin) 1 dose .XX ASDIRECTED PRN PRN Reason: RX TO DOSE VANCO Discontinued Medications Enoxaparin Sodium (Enoxaparin 30 Mg/0.3 Ml Syringe) 30 mg SUBCUT DAILY [facility] Gadobenate Dimeglumine (Gadobenate Dimeglumine 529 Mg/Ml 20 Ml Sdv) 19 ml IVPUSH ONETIME ONE Stop: 09/14/20 11:01 Last Admin: 09/14/20 11:26 Dose: 19 ml Documented by: Glipizide (Glipizide 5 Mg Tab.Er) 5 mg PO DAILY [facility] Vancomycin HCl 1.5 gm/ Sodium (Chloride) 500 mls @ 250 mls/hr IV ONETIME ONE Stop: 09/13/20 16:59 Last Admin: 09/13/20 16:16 Dose: 250 mls/hr Documented by: Vancomycin HCl 1.5 gm/ Sodium (Chloride) 250 mls @ 250 mls/hr IV Q8H [facility] Last Admin: 09/14/20 01:15 Dose: 250 mls/hr Documented by: Vancomycin HCl 1 gm/Vancomycin HCl 500 mg/ Sodium Chloride 500 mls @ 250 mls/hr IV Q8H [facility] Last Admin: 09/15/20 00:27 Dose: 250 mls/hr Documented by: Magnesium Sulfate 2 gm/ Premix 50 mls @ 25 mls/hr IV ONETIME ONE Stop: 09/15/20 09:54 Last Admin: 09/15/20 08:32 Dose: 25 mls/hr Documented by: Morphine Sulfate (Morphine 2 Mg/Ml Syringe) 2 mg IVPUSH Q2H PRN PRN Reason: Pain (severe 7-10) Stop: 09/14/20 15:29 Sodium Chloride (Sodium Chloride 0.9% 10 Ml Syringe) 20 ml FLUSH ASDIRECTED [facility] Stop: 09/14/20 14:00 Last Admin: 09/14/20 11:26 Dose: 20 ml Documented by: Vancomycin HCl (Pharmacy To Dose - Vancomycin) 1 dose .XX ONETIME ONE Stop: 09/13/20 14:46 Vancomycin HCl (Pharmacy To Dose - Vancomycin) 1 dose .XX ASDIRECTED [facility]
--- NOTE | 2020-09-15 11:10 | CR ---
Chest: Frontal view of the chest was obtained at 4 different times. Comparison: No prior chest imaging is available. Fourth film shows a right sided PICC line with tip lying within the superior vena cava in satisfactory position. Heart size and mediastinum are normal. Lungs are clear with no acute parenchymal change. Bony structures show nothing acute. Impression: 1. 4 separate chest x-rays were obtained. Final chest x-ray shows a right-sided PICC line within superior vena cava in satisfactory position. 2. Other portions of the chest x-ray are within normal limits. Diagnostic code #2
--- NOTE | 2020-09-15 12:00 | PCM.PRNOTE ---
- Free Text/Narrative Note: Date: 09-15-20 Start: 1020 Stop: 1115 Time Out: 1010 Procedure: PICC Line placement for fdc antibiotic therapy. Anesthesia requested for PICC line placement. Patient educated on risk/benefits, allergies reviewed, medication list reviewed, patient agrees to proceed, consent obtained. Patient positioned in supine position. IV access available in right AC. Sterile drape placed, along with sterile gloves, sterile gown, and masks noted. Right AC arm and 20 jesus PIV prepped by 3 chloroprep and new sterile PIV hub placed. Guide wire passed with ease and microintroducer kit used and 4 guamanian single lumen PICC advanced and secured at 49 cm at the skin, with 4 cm of catheter outside skin. Good blood return, and site flushed with 20 mls of normal saline with ease. PICC line placement verified with portably chest xray. MicroIntroducer kit used: [employer] NXT ClearVue PICC 4 guamanian catheter single lumen advanced without difficulties noted. REF: [id number] LOT: [id number] EXP: 2021-04-19 Mastisol/Steri-Strips placed, along with Tegaderm with chlorahexidine square applied, with stat-lock securing device also utilized. Patient tolerated procedure very well. Thank you, Aleida Kinney [employer]
--- NOTE | 2020-09-15 12:53 | PCM.DCSUM1 ---
Discharge Summary - Hospital Course HPI Initial Comments: The patient is a 40-year-old gentleman who had presented to the emergency department with a complaint of worsening infection of his left great toe. Patient reports that about 2 to 3 weeks ago a cow had stepped on his toe and it had developed a blister. The patient had been treating it at home with creams and ointments and trying to keep it clean. The patient has had no specific aggravating or relieving factors for this. It gotten progressively worse to the point that he needed to seek care. The patient has a history of diabetes that reportedly has been well controlled. The patient has denied any numbness or tingling to his feet. He has denied any pain to his foot. The patient has not had any fever or chills. He is only taking medication for his diabetes and cholesterol. The patient follows up with his primary care physician on a regular basis. Diagnosis: Stroke: No - Discharge Data Discharge Date: 09/15/20 (Admit date: 09/13/2020) Discharge Disposition: Home, Self-Care 01 Condition: Good - Referral to Home Health Primary Care Physician: Vandana Maddox PA-C - Discharge Diagnosis/Problem(s) (1) Diabetic foot ulcer associated with type 2 diabetes mellitus SNOMED Code(s): 0057032389500 ICD Code: E11.621 - TYPE 2 DIABETES MELLITUS WITH FOOT ULCER; L97.509 - NON- PRESSURE CHRONIC ULCER OTH PRT UNSP FOOT W UNSP SEVERITY Status: Acute Priority: High Current Visit: Yes Qualifiers: Diabetic foot ulcer location: toe Laterality: left Non-pressure ulcer stage: unspecified non-pressure ulcer stage Qualified Code(s): E11.621 - Type 2 diabetes mellitus with foot ulcer; L97.529 - Non-pressure chronic ulcer of ot her part of left foot with unspecified severity (2) Diabetes mellitus type 2 in nonobese SNOMED Code(s): 406762537 ICD Code: E11.9 - TYPE 2 DIABETES MELLITUS WITHOUT COMPLICATIONS Status: Chronic Priority: High Current Visit: Yes (3) HLD (hyperlipidemia) SNOMED Code(s): 36196128 ICD Code: E78.5 - HYPERLIPIDEMIA, UNSPECIFIED Status: Chronic Priority: Low Current Visit: No Qualifiers: Hyperlipidemia type: unspecified Qualified Code(s): E78.5 - Hyperlipidemia, unspecified (4) Sleep disorder SNOMED Code(s): 68427194 ICD Code: G47.9 - SLEEP DISORDER, UNSPECIFIED Status: Chronic Priority: Low Current Visit: No (5) Osteomyelitis of great toe of left foot SNOMED Code(s): 272776354, 604615346, [id number] ICD Code: M86.9 - OSTEOMYELITIS, UNSPECIFIED Status: Acute Priority: High Current Visit: Yes - Patient Summary/Data Consults: Consultations 09/13/20 15:24 OT Evaluation and Treatment [CONS] Routine PT Evaluation and Treatment [CONS] Routine 09/14/20 06:53 Consult to Physician [CONS] Routine Labs Pending at D/C: None Recommended Follow-up Testing/Procedures: Follow-up with primary care provider within 5 days of discharge, sooner if needed. -Patient will be discharged on 570 mcg daily daptomycin and 2 g daily Rocephi n IV infusion for 41 days. -PICC line was placed prior to discharge. Please monitor, perform dressing changes as needed, and remove after completion of treatment. -Per infectious disease, weekly CK, CBC, and CMP ordered with results to primary care provider -Patient will have wound dressing changes as needed daily ordered for when he has his infusions. -All home medications were continued. Patient requested hydroxyzine refill. Short 10-day course prescription was sent to get him by. -A1c was obtained here was 7.5. Please monitor this and adjust medications accordingly. Follow-up with Dr. Tobias, orthopedics, within 2 weeks. Follow-up with podiatry as scheduled. Hospital Course: This is a 40-year-old male admitted to the hospital on 09-13-2020 with suspected osteomyelitis of the left great toe. 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 He noted that time he had a blister on the plantar aspect of his left great toe, which he popped, and things at that time seemed to be doing okay. 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 Approximately 2 weeks ago he noticed he was having some drainage and his toe became quite swollen. He states the drainage was purulent in nature. Denies any current or prior pain. A1c was obtained was 7.5. On 04/26/2019 it was noted to be 7.1. Patient is on glipizide and Metformin. States he rarely checks his sugars unless he is feeling poor. He was offered diabetic education and dietitian but refused. Patient states that he knows what to do but is not been taking very good care of himself since [facility]. MRI was obtained and returns showing "1. Findings compatible with diffuse cellulitis mostly involving the first toe. 2. Edema as well as enhancement within the proximal and distal phalanx of the first toe compatible with osteomyelitis. 3. Cystic area within the base of the proximal phalanx of the first toe most likely old and less likely due to a bone abscess." Dr. Tobias, orthopedic surgeon, was in to see the patient and review imaging. He stated that it is medical management and patient will need 6 weeks of IV antibiotics. He also recommends PICC line placement. PT Wound care was consulted as but did not have much to offer as the patient has osteomyelitis and they will not do debridement. PICC line was placed today, 09/15/2020 by TUBE TEST TECHNICIAN. Unfortunately new wound cultures were ever obtained prior to starting antibiotics. Dr. Guido, infectious disease specialist for [facility] in [place] was contacted for input and she recommended daptomycin 6 mg/kg daily and Rocephin 2 g daily for 6 weeks total. She also recommended following CK, CMP, and CBC weekly. Orders for this will be placed with results to primary care provider. Patient's primary care provider, Vandana Maddox PA-C, was contacted to discuss plan of care and she will follow these labs. Otherwise patient's erythema and swelling has continued to improve. He denies any current pain. Patient will discharge home today with PICC line in place. Nursing and case management arranging daily infusions for the patient. He will have daily as needed dressing changes when he comes for his infusions. Home medications were all continued. Hydroxyzine 10 tab renewal was sent as patient reports he is getting low and this will get him by until he sees his primary care provider. Recommend PCP follow-up with patient's labs as ordered. Recommend PCP follow-up patient's blood glucose trends. Discharged home today. - Patient Instructions Diet: Diabetic Diet Activity: As Tolerated Driving: Do Not Drive (today ) Showering/Bathing: May Shower Wound/Incision Care: Keep Operative Site/Wound Site Clean and Dry, Change Dressing Daily (as needed - nursing will do when recieving infusions) Notify Provider of: Fever, Increased Pain, Nausea and/or Vomiting Other/Special Instructions: Follow-up with primary care provider within 5 days of discharge, sooner if needed. Follow-up with Dr. Tobias's office within 2 weeks of discharge. Follow-up with podiatry outpatient. It is very important that you follow directions to recieve your antibioitic infusions, if not you may loose your toe or develop a significant blood infection which can lead to sepsis and possibly . As we discussed, monitor your blood glucose readings as before, watch your diet, and discuss your blood glucose readings with your primary care provider. Should symptoms return or worsen contact your primary care provider or return to the Emergency Department. - Discharge Plan *PRESCRIPTION DRUG MONITORING PROGRAM REVIEWED*: No *COPY OF PRESCRIPTION DRUG MONITORING REPORT IN PATIENT ALIN: No Prescriptions/Med Rec: DAPTOmycin [Cubicin] 570 mg IV DAILY 41 Days hydrOXYzine HCL [hydrOXYzine] 25 - 50 mg PO BEDTIME PRN #10 tab PRN Reason: Insomnia cefTRIAXone [Rocephin] 2 gm IV DAILY #41 adv Home Medications: Home Meds Cholecalciferol (Vitamin D3) [Vitamin D3] 2,000 unit PO DAILY 06/13/18 [History] Fenofibrate 54 mg PO DAILY 06/13/18 [History] metFORMIN [Glucophage XR] 1,000 mg PO BID 09/13/20 [History] glipiZIDE [Glucotrol XL] 5 mg PO DAILY 09/14/20 [History] DAPTOmycin [Cubicin] 570 mg IV DAILY 41 Days 09/15/20 [Rx] cefTRIAXone [Rocephin] 2 gm IV DAILY #41 adv 09/15/20 [Rx] hydrOXYzine HCL [hydrOXYzine] 25 - 50 mg PO BEDTIME PRN #10 tab 09/15/20 [Rx] Oxygen Therapy Mode: Room Air Patient Handouts: Osteomyelitis, Adult, Type 2 Diabetes Mellitus, Self Care, Adult, [id number], PICC Home Care Guide, Sepsis, Self Care, Adult Forms: ED Department Discharge Referrals: [facility] [Other] (Patient will have infusion of antibiotics on Monday 09/18 at the Infusion Center and on Tuesday 09/19 will be done in the Emergency Department in [facility]) Matteo Tobias MD [Physician] - 10/05/20 9:00 am (Please check-in by 8:45am.) Ronnie Sanchez II, DPM [Physician] - 09/25/20 10:45 am (Please check in at 10:45) Vandana Maddox PA-C [Primary Care Provider] - 09/22/20 1:40 pm (Please check in at 1:40 for appt. at 2:00 p.m.) - Discharge Summary/Plan Comment DC Time >30 min.: Yes (45 mins ) - General Info Date of Service: 09/15/20 Admission Dx/Problem (Free Text: Osteomyelitis of toe Functional Status: Reports: Pain Controlled, Tolerating Diet, Ambulating, Urinating. Denies: New Symptoms - Review of Systems General: Reports: No Symptoms. Denies: Fever, Weakness, Fatigue, Malaise, Chills HEENT: Reports: No Symptoms. Denies: Headaches, Sore Throat Pulmonary: Reports: No Symptoms. Denies: Shortness of Breath, Cough, Sputum, Wheezing Cardiovascular: Reports: No Symptoms. Denies: Chest Pain, Palpitations, Dyspnea on Exertion, Edema, Lightheadedness Gastrointestinal: Reports: No Symptoms. Denies: Abdominal Pain, Constipation, Diarrhea Genitourinary: Reports: No Symptoms. Denies: Pain Musculoskeletal: Reports: No Symptoms. Denies: Foot Pain Skin: Reports: No Symptoms. Denies: Cyanosis Neurological: Reports: No Symptoms. Denies: Confusion, Pre-Existing Deficit, Difficulty Walking, Gait Disturbance Psychiatric: Reports: No Symptoms - Patient Data Vitals - Most Recent: Last Vital Signs Temp 98.1 F 09/15/20 10:04 Pulse 106 H 09/15/20 10:04 Resp 16 09/15/20 10:04 BP 132/69 09/15/20 10:04 Pulse Ox 95 09/15/20 10:04 Weight - Most Recent: 209 lb 3.2 oz I&O - Last 24 hours: Intake & Output 09/14/20 09/15/20 09/15/20 22:59 06:59 14:59 Intake Total 1420 1250 Balance 1420 1250 Lab Results - Last 24 hrs: Laboratory Results - last 24 hr 09/14/20 09/15/20 09/15/20 Range/Units 17:00 06:07 06:18 WBC 4.05 L (4.23-9.07) K/mm3 RBC 3.58 L (4.63-6.08) M/mm3 Hgb 12.8 L (13.7-17.5) gm/dl Hct 37.1 L (40.1-51.0) % MCV 103.6 H (79.0-92.2) fl MCH 35.8 H (25.7-32.2) pg MCHC 34.5 (32.2-35.5) g/dl RDW Std Deviation 51.8 H (35.1-43.9) fL Plt Count 148 L (163-337) K/mm3 MPV 8.4 L (9.4-12.3) fl Neut % (Auto) 60.4 (34.0-67.9) % Lymph % (Auto) 26.2 (21.8-53.1) % [place] % (Auto) 8.9 (5.3-12.2) % Eos % (Auto) 2.0 (0.8-7.0) Baso % (Auto) 0.5 (0.1-1.2) % Neut # (Auto) 2.45 (1.78-5.38) K/mm3 Lymph # (Auto) 1.06 L (1.32-3.57) K/mm3 [place] # (Auto) 0.36 (0.30-0.82) K/mm3 Eos # (Auto) 0.08 (0.04-0.54) K/mm3 Baso # (Auto) 0.02 (0.01-0.08) K/mm3 Sodium (136-145) mEq/L Potassium (3.5-5.1) mEq/L Chloride (98-107) mEq/L Carbon Dioxide (21-32) mEq/L Anion Gap (5-15) BUN (7-18) mg/dL Creatinine (0.7-1.3) mg/dL Est Cr Clr Drug Dosing mL/min Estimated GFR (MDRD) (>60) mL/min BUN/Creatinine Ratio (14-18) Glucose (70-99) mg/dL POC Glucose 261 H 240 H (70-99) mg/dL Calcium (8.5-10.1) mg/dL Magnesium (1.8-2.4) mg/dL Total Bilirubin (0.2-1.0) mg/dL AST (15-37) U/L ALT (16-63) U/L Alkaline Phosphatase (46-116) U/L C-Reactive Protein (<1.0) mg/dL Total Protein (6.4-8.2) g/dl Albumin (3.4-5.0) g/dl Globulin gm/dL Albumin/Globulin Ratio (1-2) Vancomycin Trough (10.0-20.0) 09/15/20 09/15/20 09/15/20 Range/Units 06:18 07:59 11:30 WBC (4.23-9.07) K/mm3 RBC (4.63-6.08) M/mm3 Hgb (13.7-17.5) gm/dl Hct (40.1-51.0) % MCV (79.0-92.2) fl MCH (25.7-32.2) pg MCHC (32.2-35.5) g/dl RDW Std Deviation (35.1-43.9) fL Plt Count (163-337) K/mm3 MPV (9.4-12.3) fl Neut % (Auto) (34.0-67.9) % Lymph % (Auto) (21.8-53.1) % [place] % (Auto) (5.3-12.2) % Eos % (Auto) (0.8-7.0) Baso % (Auto) (0.1-1.2) % Neut # (Auto) (1.78-5.38) K/mm3 Lymph # (Auto) (1.32-3.57) K/mm3 [place] # (Auto) (0.30-0.82) K/mm3 Eos # (Auto) (0.04-0.54) K/mm3 Baso # (Auto) (0.01-0.08) K/mm3 Sodium 141 (136-145) mEq/L Potassium 3.9 (3.5-5.1) mEq/L Chloride 105 (98-107) mEq/L Carbon Dioxide 27 (21-32) mEq/L Anion Gap 12.9 (5-15) BUN 11 (7-18) mg/dL Creatinine 0.7 (0.7-1.3) mg/dL Est Cr Clr Drug Dosing 166.36 mL/min Estimated GFR (MDRD) > 60 (>60) mL/min BUN/Creatinine Ratio 15.7 (14-18) Glucose 261 H (70-99) mg/dL POC Glucose 252 H (70-99) mg/dL Calcium 9.1 (8.5-10.1) mg/dL Magnesium 1.6 L (1.8-2.4) mg/dL Total Bilirubin 1.0 (0.2-1.0) mg/dL AST 20 (15-37) U/L ALT 45 (16-63) U/L Alkaline Phosphatase 67 (46-116) U/L C-Reactive Protein 3.4 H* (<1.0) mg/dL Total Protein 6.5 (6.4-8.2) g/dl Albumin 2.9 L (3.4-5.0) g/dl Globulin 3.6 gm/dL Albumin/Globulin Ratio 0.8 L (1-2) Vancomycin Trough 12.8 (10.0-20.0) Med Orders - Current: Current Medications Acetaminophen (Acetaminophen 325 Mg Tab) 650 mg PO Q4H PRN PRN Reason: Pain (Mild 1-3)/fever Docusate Sodium (Docusate Sodium 100 Mg Cap) 100 mg PO BID PRN PRN Reason: Constipation Enoxaparin Sodium (Enoxaparin 40 Mg/0.4 Ml Syringe) 40 mg SUBCUT DAILY [facility] Last Admin: 09/15/20 08:34 Dose: Not Given Documented by: Fenofibrate (Fenofibrate 54 Mg Tab) 54 mg PO DAILY [facility] Last Admin: 09/15/20 08:33 Dose: 54 mg Documented by: Ceftriaxone Sodium 2 gm/ (Sodium Chloride) 100 mls @ 200 mls/hr IV Q24H [facility] Last Admin: 09/14/20 14:20 Dose: 200 mls/hr Documented by: Vancomycin HCl 1.75 gm/ Sodium (Chloride) 500 mls @ 250 mls/hr IV Q8H [facility] Stop: 09/15/20 14:00 Last Admin: 09/15/20 11:28 Dose: 250 mls/hr Documented by: Daptomycin 570 mg/ Sodium (Chloride) 50 mls @ 100 mls/hr IV ONETIME ONE Stop: 09/15/20 14:29 Insulin Human Regular (Insulin Regular, Human 100 Units/Ml 3 Ml Vial) 0 unit SUBCUT TIDPC [facility]; Protocol Last Admin: 09/15/20 12:03 Dose: 6 unit Documented by: Metformin HCl (Metformin 500 Mg Tab) 1,000 mg PO BIDMEALS [facility] Last Admin: 09/15/20 06:07 Dose: 1,000 mg Documented by: Ondansetron HCl (Ondansetron 4 Mg Tab.Dis) 4 mg PO Q4H PRN PRN Reason: nausea, able to take PO Oxycodone HCl (Oxycodone 5 Mg Tab) 5 mg PO Q4H PRN PRN Reason: Pain (moderate 4-6) Sodium Chloride (Sodium Chloride 0.9% 10 Ml Syringe) 10 ml FLUSH ASDIRECTED PRN PRN Reason: Keep Vein Open Last Admin: 09/13/20 13:49 Dose: 10 ml Documented by: Temazepam (Temazepam 15 Mg Cap) 15 mg PO BEDTIME PRN PRN Reason: Sleep Last Admin: 09/14/20 22:16 Dose: 15 mg Documented by: Vancomycin HCl (Pharmacy To Dose - Vancomycin) 1 dose .XX ASDIRECTED PRN PRN Reason: RX TO DOSE VANCO Discontinued Medications Enoxaparin Sodium (Enoxaparin 30 Mg/0.3 Ml Syringe) 30 mg SUBCUT DAILY [facility] Gadobenate Dimeglumine (Gadobenate Dimeglumine 529 Mg/Ml 20 Ml Sdv) 19 ml IVPUSH ONETIME ONE Stop: 09/14/20 11:01 Last Admin: 09/14/20 11:26 Dose: 19 ml Documented by: Glipizide (Glipizide 5 Mg Tab.Er) 5 mg PO DAILY [facility] Vancomycin HCl 1.5 gm/ Sodium (Chloride) 500 mls @ 250 mls/hr IV ONETIME ONE Stop: 09/13/20 16:59 Last Admin: 09/13/20 16:16 Dose: 250 mls/hr Documented by: Vancomycin HCl 1.5 gm/ Sodium (Chloride) 250 mls @ 250 mls/hr IV Q8H [facility] Last Admin: 09/14/20 01:15 Dose: 250 mls/hr Documented by: Vancomycin HCl 1 gm/Vancomycin HCl 500 mg/ Sodium Chloride 500 mls @ 250 mls/hr IV Q8H [facility] Last Admin: 09/15/20 00:27 Dose: 250 mls/hr Documented by: Magnesium Sulfate 2 gm/ Premix 50 mls @ 25 mls/hr IV ONETIME ONE Stop: 09/15/20 09:54 Last Admin: 09/15/20 08:32 Dose: 25 mls/hr Documented by: Morphine Sulfate (Morphine 2 Mg/Ml Syringe) 2 mg IVPUSH Q2H PRN PRN Reason: Pain (severe 7-10) Stop: 09/14/20 15:29 Sodium Chloride (Sodium Chloride 0.9% 10 Ml Syringe) 20 ml FLUSH ASDIRECTED [facility] Stop: 09/14/20 14:00 Last Admin: 09/14/20 11:26 Dose: 20 ml Documented by: Vancomycin HCl (Pharmacy To Dose - Vancomycin) 1 dose .XX ONETIME ONE Stop: 09/13/20 14:46 Vancomycin HCl (Pharmacy To Dose - Vancomycin) 1 dose .XX ASDIRECTED [facility] - Exam Quality Assessment: Reports: DVT Prophylaxis. Denies: Supplemental Oxygen, Urine Catheter General: Reports: Alert, Oriented, Cooperative, No Acute Distress HEENT: Reports: Pupils Equal, Pupils Reactive, Mucous Membr. Moist/[place] Neck: Reports: Supple, Trachea Midline Lungs: Reports: Clear to Auscultation, Normal Respiratory Effort Cardiovascular: Reports: Regular Rate, Regular Rhythm GI/Abdominal Exam: Normal Bowel Sounds, Soft, Non-Tender, No Distention (Male) Exam: Deferred Rectal (Males) Exam: Deferred Back Exam: Reports: Normal Inspection, Full Range of Motion Extremities: Normal Range of Motion, Non-Tender, No Pedal Edema, Normal Capillary Refill, Other (1 cm circular ulcer on plantar aspect of left great toe. Swollen left great toe, however erythema and swelling are improving) Skin: Reports: Warm, Dry, Intact Wound/Incisions: Reports: Drainage (Mild), Erythema Improving Neurological: Reports: No New Focal Deficit Psy/Mental Status: Reports: Alert, Normal Affect, Normal Mood
[2020-09-15] MEDS: cefTRIAXone 2 GM in Sodium Chloride 0.9% 100 ML IV SCH (13:47)
--- NOTE | 2020-09-15 16:43 | PCM.SN.2 ---
- Free Text/Narrative Note: Plan was to discharge patient today however patient is now complaining of left ankle pain. Reviewed MRI and unfortunately no imaging was obtained of the left ankle. Patient reports pain is deep in his ankle. Discussed case with Dr. Delgado, attending hospitalist who would like patient to stay until tomorrow when we can obtain an ankle MRI. Discussed plan with patient who is reluctantly in agreement. Discharge will be canceled. Discharge summary for today shall serve as daily progress note.
[2020-09-15] MEDS ORDERED: Sodium Chloride 0.9% 1,000 ML IV ONE (17:15)
[2020-09-15] MEDS ORDERED: LORazepam 2 MG/ML SDV IV PRN (17:16)
[2020-09-15] MEDS: Temazepam 15 MG Cap PO PRN (23:31)
[2020-09-16] MEDS: metFORMIN 500 MG Tab PO SCH (06:00)
[2020-09-16] MEDS ORDERED: Magnesium Sulfate/Water 4 GM in Premix Bag 1 BAG IV ONE (07:18)
[2020-09-16] MEDS: Insulin Regular, Human 100 Units/ML 3 ML Vial SUBCUT SCH ×2 (08:14→12:24)
[2020-09-16] MEDS: Enoxaparin 40 MG/0.4 ML Syringe SUBCUT SCH (08:15)
[2020-09-16] MEDS: Fenofibrate 54 MG Tab PO SCH (08:15)
--- NOTE | 2020-09-16 08:38 | CR ---
Chest: 2 views of the chest were obtained. Comparison: Prior chest x-ray of 09/15/20 (10:54 AM). Right-sided PICC line is seen. Tip lies within the superior vena cava close to the right atrial junction in satisfactory position. Heart size and mediastinum are normal. Lungs are clear with no acute parenchymal change. No acute osseous finding is seen. Impression: 1. Satisfactory position of right-sided PICC line. 2. Nothing acute is seen on 2 view chest x-ray. Diagnostic code #2
[2020-09-16] MEDS ORDERED: Gadobenate Dimeglumine 529 MG/ML 20 ML SDV IVPUSH ONE (08:59)
[2020-09-16] MEDS ORDERED: Sodium Chloride 0.9% 10 ML Syringe FLUSH SCH (09:00)
--- NOTE | 2020-09-16 10:16 | MR ---
MRI left ankle Technique: T1 and fat-suppressed inversion recovery sagittal; proton, T2 and T2 fat-suppressed coronal; T1 and T2 fat-suppressed axial; postcontrast T1 fat-suppressed axial, sagittal and coronal images were obtained. Comparison: Prior MRI left foot study of 09/14/20. Findings: Diffuse soft tissue edema is seen within the foot. Lesser edema is noted along the lateral and medial portions of the ankle. Joint effusion is slightly increased within the tibiotalar joint. There is an area of increased signal being seen within the posterior talus which shows enhancement on this exam. Enhancement makes this suspicious for possible osteomyelitis. No other areas of bone marrow enhancement is seen. Slight area of signal is noted within the calcaneus believed to be a normal variant. Achilles tendon is intact. Tendons along the medial and lateral ankle appear intact. Impression: 1. Talus shows posterior enhancement making this suspicious for small area of osteomyelitis. 2. Soft tissue edema as noted above. 3. Small joint effusion within the tibiotalar joint. 4. Slight finding within the calcaneus which is most likely a normal variant. Diagnostic code #3
[2020-09-16] MEDS ORDERED: cefTRIAXone 2 GM in Sodium Chloride 0.9% 100 ML IV SCH (12:00)
--- NOTE | 2020-09-16 13:05 | PCM.DCSUM1 ---
Discharge Summary - Hospital Course HPI Initial Comments: The patient is a 40-year-old gentleman who had presented to the emergency department with a complaint of worsening infection of his left great toe. Patient reports that about 2 to 3 weeks ago a cow had stepped on his toe and it had developed a blister. The patient had been treating it at home with creams and ointments and trying to keep it clean. The patient has had no specific aggravating or relieving factors for this. It gotten progressively worse to the point that he needed to seek care. The patient has a history of diabetes that reportedly has been well controlled. The patient has denied any numbness or tingling to his feet. He has denied any pain to his foot. The patient has not had any fever or chills. He is only taking medication for his diabetes and cholesterol. The patient follows up with his primary care physician on a regular basis. Diagnosis: Stroke: No - Discharge Data Discharge Date: 09/16/20 (Admit date: 09/13/2020) Discharge Disposition: Home, Self-Care 01 Condition: Good - Referral to Home Health Primary Care Physician: Vandana Maddox PA-C - Discharge Diagnosis/Problem(s) (1) Diabetic foot ulcer associated with type 2 diabetes mellitus SNOMED Code(s): 9408305799389 ICD Code: E11.621 - TYPE 2 DIABETES MELLITUS WITH FOOT ULCER; L97.509 - NON- PRESSURE CHRONIC ULCER OTH PRT UNSP FOOT W UNSP SEVERITY Status: Acute Priority: High Current Visit: Yes Qualifiers: Diabetic foot ulcer location: toe Laterality: left Non-pressure ulcer stage: unspecified non-pressure ulcer stage Qualified Code(s): E11.621 - Type 2 diabetes mellitus with foot ulcer; L97.529 - Non-pressure chronic ulcer of ot her part of left foot with unspecified severity (2) Diabetes mellitus type 2 in nonobese SNOMED Code(s): 545071426 ICD Code: E11.9 - TYPE 2 DIABETES MELLITUS WITHOUT COMPLICATIONS Status: Chronic Priority: High Current Visit: Yes (3) HLD (hyperlipidemia) SNOMED Code(s): 99707921 ICD Code: E78.5 - HYPERLIPIDEMIA, UNSPECIFIED Status: Chronic Priority: Low Current Visit: No Qualifiers: Hyperlipidemia type: unspecified Qualified Code(s): E78.5 - Hyperlipidemia, unspecified (4) Sleep disorder SNOMED Code(s): 16549230 ICD Code: G47.9 - SLEEP DISORDER, UNSPECIFIED Status: Chronic Priority: Low Current Visit: No (5) Osteomyelitis of great toe of left foot SNOMED Code(s): 309849726, 113699189, [id number] ICD Code: M86.9 - OSTEOMYELITIS, UNSPECIFIED Status: Acute Priority: High Current Visit: Yes - Patient Summary/Data Consults: Consultations 09/13/20 15:24 OT Evaluation and Treatment [CONS] Routine PT Evaluation and Treatment [CONS] Routine 09/14/20 06:53 Consult to Physician [CONS] Routine Labs Pending at D/C: None Recommended Follow-up Testing/Procedures: Follow-up with primary care provider within 5 days of discharge, sooner if needed. -Patient will be discharged on 570 mcg daily daptomycin and 2 g daily Rocephi n IV infusion for 41 days. -PICC line was placed prior to discharge. Please monitor, perform dressing changes as needed, and remove after completion of treatment. -Per infectious disease, weekly CK, CBC, and CMP ordered with results to primary care provider -Patient will have wound dressing changes as needed daily ordered for when he has his infusions. -All home medications were continued. Patient requested hydroxyzine refill. Short 10-day course prescription was sent to get him by. -A1c was obtained here was 7.5. Please monitor this and adjust medications accordingly. -Patients magnesium was noted to be low here and was supplemented. He will be discharged on a short course of magnesium. Please follow-up on this. Follow-up with Dr. Tobias, orthopedics, within 2 weeks. Follow-up with podiatry as scheduled. Hospital Course: This is a 40-year-old male admitted to the hospital on 09-13-2020 with suspected osteomyelitis of the left great toe. 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 He noted that time he had a blister on the plantar aspect of his left great toe, which he popped, and things at that time seemed to be doing okay. 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 Approximately 2 weeks ago he noticed he was having some drainage and his toe became quite swollen. He states the drainage was purulent in nature. Denies any current or prior pain. A1c was obtained was 7.5. On 04/26/2019 it was noted to be 7.1. Patient is on glipizide and Metformin. States he rarely checks his sugars unless he is feeling poor. He was offered diabetic education and dietitian but refused. Patient states that he knows what to do but is not been taking very good care of himself since [place]. MRI was obtained and returns showing "1. Findings compatible with diffuse cellulitis mostly involving the first toe. 2. Edema as well as enhancement within the proximal and distal phalanx of the first toe compatible with osteomyelitis. 3. Cystic area within the base of the proximal phalanx of the first toe most likely old and less likely due to a bone abscess." Dr. Tobias, orthopedic surgeon, was in to see the patient and review imaging. He stated that it is medical management and patient will need 6 weeks of IV antibiotics. He also recommends PICC line placement. PT Wound care was consulted as but did not have much to offer as the patient has osteomyelitis and they will not do debridement. PICC line was placed today, 09/15/2020 by [facility]. Unfortunately new wound cultures were ever obtained prior to starting antibiotics. Dr. Guido, infectious disease specialist for [facility] in [place] was contacted for input and she recommended daptomycin 6 mg/kg daily and Rocephin 2 g daily for 6 weeks total. She also recommended following CK, CMP, and CBC weekly. Orders for this will be placed with results to primary care provider. Patient's primary care provider, Vandana Maddox PA-C, was contacted to discuss plan of care and she will follow these labs. Otherwise patient's erythema and swelling has continued to improve. He denies any current pain. Original plan was to discharge patient on 09/15/2020 however prior to discharge and post antibiotic infusion patient noted pain in left ankle. He described this pain as deep and worsening with ambulation. Patient was also noted to have chills and a tremor. Because of this labs were repeated. Chest x-ray was obtained with nothing acute. Procalcitonin was obtained and was with in normal limits. The symptoms did resolve throughout the night. MRI of the left ankle was obtained on 09/16/2020 and shows "1. Talus shows posterior enhancement making this suspicious for small area of osteomyelitis. 2. Soft tissue edema as noted above. 3. Small joint effusion within the tibiotalar joint. 4. Slight finding within the calcaneus which is most likely a normal variant. Blood cultures have remained negative. Patient was held to achieve a second dose of IV daptomycin prior to discharge. Patient will discharge home today with PICC line in place. Nursing and case management arranging daily infusions for the patient. He will have daily as needed dressing changes when he comes for his infusions. Home medications were all continued. Hydroxyzine 10 tab renewal was sent as patient reports he is getting low and this will get him by until he sees his primary care provider. Recommend PCP follow-up with patient's labs as ordered. Recommend PCP follow-up patient's blood glucose trends. Discharged home today. - Patient Instructions Diet: Diabetic Diet Activity: As Tolerated Driving: Do Not Drive (today ) Showering/Bathing: May Shower Wound/Incision Care: Keep Operative Site/Wound Site Clean and Dry, Change Dressing Daily (as needed - nursing will do when recieving infusions) Notify Provider of: Fever, Increased Pain, Nausea and/or Vomiting Other/Special Instructions: Follow-up with primary care provider within 5 days of discharge, sooner if needed. Follow-up with Dr. Tobias's office within 2 weeks of discharge. Follow-up with podiatry outpatient. It is very important that you follow directions to recieve your antibioitic infusions, if not you may loose your toe or develop a significant blood infection which can lead to sepsis and possibly . As we discussed, monitor your blood glucose readings as before, watch your diet, and discuss your blood glucose readings with your primary care provider. Should symptoms return or worsen contact your primary care provider or return to the Emergency Department. - Discharge Plan *PRESCRIPTION DRUG MONITORING PROGRAM REVIEWED*: No *COPY OF PRESCRIPTION DRUG MONITORING REPORT IN PATIENT ALIN: No Prescriptions/Med Rec: DAPTOmycin [Cubicin] 570 mg IV DAILY 41 Days hydrOXYzine HCL [hydrOXYzine] 25 - 50 mg PO BEDTIME PRN #10 tab PRN Reason: Insomnia cefTRIAXone [Rocephin] 2 gm IV DAILY #41 adv Home Medications: Home Meds Cholecalciferol (Vitamin D3) [Vitamin D3] 2,000 unit PO DAILY 06/13/18 [History] Fenofibrate 54 mg PO DAILY 06/13/18 [History] metFORMIN [Glucophage XR] 1,000 mg PO BID 09/13/20 [History] glipiZIDE [Glucotrol XL] 5 mg PO DAILY 09/14/20 [History] DAPTOmycin [Cubicin] 570 mg IV DAILY 41 Days 09/15/20 [Rx] cefTRIAXone [Rocephin] 2 gm IV DAILY #41 adv 09/15/20 [Rx] hydrOXYzine HCL [hydrOXYzine] 25 - 50 mg PO BEDTIME PRN #10 tab 09/15/20 [Rx] Oxygen Therapy Mode: Room Air Patient Handouts: Osteomyelitis, Adult, Type 2 Diabetes Mellitus, Self Care, Adult, [id number], PICC Home Care Guide, Sepsis, Self Care, Adult Referrals: [facility] [Other] (Patient will have infusion of antibiotics on Monday 09/18 at the Infusion [facility] and on Tuesday 09/19 will be done in the Emergency Department in [facility].) Matteo Tobias MD [Physician] - 10/05/20 9:00 am (Please check-in by 8:45am.) Ronnie Sanchez II, DPM [Physician] - 09/25/20 10:45 am (Please check in at 10:45) Vandana Maddox PA-C [Primary Care Provider] - 09/22/20 1:40 pm (Please check in at 1:40 for appt. at 2:00 p.m.) - Discharge Summary/Plan Comment DC Time >30 min.: Yes (45 mins ) - General Info Date of Service: 09/16/20 Admission Dx/Problem (Free Text: Osteomyelitis of toe Functional Status: Reports: Pain Controlled, Tolerating Diet, Ambulating, Urinating. Denies: New Symptoms - Review of Systems General: Reports: No Symptoms. Denies: Fever, Weakness, Fatigue, Malaise, Chills HEENT: Reports: No Symptoms. Denies: Headaches, Sore Throat Pulmonary: Reports: No Symptoms. Denies: Shortness of Breath, Cough, Sputum, Wheezing Cardiovascular: Reports: No Symptoms. Denies: Chest Pain, Palpitations, Dyspnea on Exertion, Edema Gastrointestinal: Reports: No Symptoms. Denies: Abdominal Pain, Constipation, Diarrhea, Nausea, Vomiting Genitourinary: Reports: No Symptoms. Denies: Pain Musculoskeletal: Reports: No Symptoms. Denies: Foot Pain Skin: Reports: No Symptoms. Denies: Cyanosis Neurological: Reports: No Symptoms. Denies: Confusion, Pre-Existing Deficit, Difficulty Walking, Weakness, Gait Disturbance Psychiatric: Reports: No Symptoms. Denies: Confusion - Patient Data Vitals - Most Recent: Last Vital Signs Temp 98.4 F 09/16/20 10:04 Pulse 104 H 09/16/20 10:04 Resp 20 09/16/20 10:04 BP 136/82 09/16/20 10:04 Pulse Ox 95 09/16/20 10:04 Weight - Most Recent: 210 lb 1.6 oz I&O - Last 24 hours: Intake & Output 09/15/20 09/16/20 09/16/20 22:59 06:59 14:59 Intake Total 2470 800 Balance 2470 800 Lab Results - Last 24 hrs: Laboratory Results - last 24 hr 09/15/20 09/15/20 09/15/20 Range/Units 17:14 17:26 17:26 WBC 4.87 (4.23-9.07) K/mm3 RBC 3.62 L (4.63-6.08) M/mm3 Hgb 13.1 L (13.7-17.5) gm/dl Hct 37.7 L (40.1-51.0) % MCV 104.1 H (79.0-92.2) fl MCH 36.2 H (25.7-32.2) pg MCHC 34.7 (32.2-35.5) g/dl RDW Std Deviation 52.6 H (35.1-43.9) fL Plt Count 167 (163-337) K/mm3 MPV 8.2 L (9.4-12.3) fl Neut % (Auto) 83.4 H (34.0-67.9) % Lymph % (Auto) 7.6 L (21.8-53.1) % Clayton % (Auto) 7.0 (5.3-12.2) % Eos % (Auto) 0.6 L (0.8-7.0) Baso % (Auto) 0.2 (0.1-1.2) % Neut # (Auto) 4.06 (1.78-5.38) K/mm3 Lymph # (Auto) 0.37 L (1.32-3.57) K/mm3 Clayton # (Auto) 0.34 (0.30-0.82) K/mm3 Eos # (Auto) 0.03 L (0.04-0.54) K/mm3 Baso # (Auto) 0.01 (0.01-0.08) K/mm3 Manual Slide Review Abnormal smear VBG pH 7.43 H (7.30-7.40) VBG pCO2 41.0 (41-51) mmHg VBG pO2 20.0 L (40-80) mmHG VBG HCO3 26.4 H (22-26) meq/L VBG O2 Saturation 28.5 VBG Base Excess 2.4 H (-4.0-2.0) O2 Delivery Device Room air Sodium 140 (136-145) mEq/L Potassium 4.1 (3.5-5.1) mEq/L Chloride 103 (98-107) mEq/L Carbon Dioxide 28 (21-32) mEq/L Anion Gap 13.1 (5-15) BUN 12 (7-18) mg/dL Creatinine 0.9 (0.7-1.3) mg/dL Est Cr Clr Drug Dosing 129.39 mL/min Estimated GFR (MDRD) > 60 (>60) mL/min BUN/Creatinine Ratio 13.3 L (14-18) Glucose 323 H (70-99) mg/dL POC Glucose (70-99) mg/dL Lactic Acid (0.4-2.0) mmol/L Calcium 9.1 (8.5-10.1) mg/dL Magnesium (1.8-2.4) mg/dL Total Bilirubin 1.1 H (0.2-1.0) mg/dL AST 35 (15-37) U/L ALT 67 H (16-63) U/L Alkaline Phosphatase 77 (46-116) U/L C-Reactive Protein (<1.0) mg/dL Total Protein 6.9 (6.4-8.2) g/dl Albumin 3.2 L (3.4-5.0) g/dl Globulin 3.7 gm/dL Albumin/Globulin Ratio 0.9 L (1-2) Procalcitonin ng/mL 09/15/20 09/15/20 09/15/20 Range/Units 17:26 17:26 17:41 WBC (4.23-9.07) K/mm3 RBC (4.63-6.08) M/mm3 Hgb (13.7-17.5) gm/dl Hct (40.1-51.0) % MCV (79.0-92.2) fl MCH (25.7-32.2) pg MCHC (32.2-35.5) g/dl RDW Std Deviation (35.1-43.9) fL Plt Count (163-337) K/mm3 MPV (9.4-12.3) fl Neut % (Auto) (34.0-67.9) % Lymph % (Auto) (21.8-53.1) % Clayton % (Auto) (5.3-12.2) % Eos % (Auto) (0.8-7.0) Baso % (Auto) (0.1-1.2) % Neut # (Auto) (1.78-5.38) K/mm3 Lymph # (Auto) (1.32-3.57) K/mm3 Clayton # (Auto) (0.30-0.82) K/mm3 Eos # (Auto) (0.04-0.54) K/mm3 Baso # (Auto) (0.01-0.08) K/mm3 Manual Slide Review VBG pH (7.30-7.40) VBG pCO2 (41-51) mmHg VBG pO2 (40-80) mmHG VBG HCO3 (22-26) meq/L VBG O2 Saturation VBG Base Excess (-4.0-2.0) O2 Delivery Device Sodium (136-145) mEq/L Potassium (3.5-5.1) mEq/L Chloride (98-107) mEq/L Carbon Dioxide (21-32) mEq/L Anion Gap (5-15) BUN (7-18) mg/dL Creatinine (0.7-1.3) mg/dL Est Cr Clr Drug Dosing mL/min Estimated GFR (MDRD) (>60) mL/min BUN/Creatinine Ratio (14-18) Glucose (70-99) mg/dL POC Glucose 301 H (70-99) mg/dL Lactic Acid 0.8 (0.4-2.0) mmol/L Calcium (8.5-10.1) mg/dL Magnesium (1.8-2.4) mg/dL Total Bilirubin (0.2-1.0) mg/dL AST (15-37) U/L ALT (16-63) U/L Alkaline Phosphatase (46-116) U/L C-Reactive Protein (<1.0) mg/dL Total Protein (6.4-8.2) g/dl Albumin (3.4-5.0) g/dl Globulin gm/dL Albumin/Globulin Ratio (1-2) Procalcitonin 0.06 ng/mL 09/16/20 09/16/20 09/16/20 Range/Units 05:50 05:50 05:54 WBC 4.43 (4.23-9.07) K/mm3 RBC 3.52 L (4.63-6.08) M/mm3 Hgb 12.6 L (13.7-17.5) gm/dl Hct 36.6 L (40.1-51.0) % MCV 104.0 H (79.0-92.2) fl MCH 35.8 H (25.7-32.2) pg MCHC 34.4 (32.2-35.5) g/dl RDW Std Deviation 53.3 H (35.1-43.9) fL Plt Count 164 (163-337) K/mm3 MPV 8.4 L (9.4-12.3) fl Neut % (Auto) 61.2 (34.0-67.9) % Lymph % (Auto) 23.9 (21.8-53.1) % Clayton % (Auto) 12.0 (5.3-12.2) % Eos % (Auto) 1.1 (0.8-7.0) Baso % (Auto) 0.2 (0.1-1.2) % Neut # (Auto) 2.71 (1.78-5.38) K/mm3 Lymph # (Auto) 1.06 L (1.32-3.57) K/mm3 Clayton # (Auto) 0.53 (0.30-0.82) K/mm3 Eos # (Auto) 0.05 (0.04-0.54) K/mm3 Baso # (Auto) 0.01 (0.01-0.08) K/mm3 Manual Slide Review VBG pH (7.30-7.40) VBG pCO2 (41-51) mmHg VBG pO2 (40-80) mmHG VBG HCO3 (22-26) meq/L VBG O2 Saturation VBG Base Excess (-4.0-2.0) O2 Delivery Device Sodium 143 (136-145) mEq/L Potassium 3.9 (3.5-5.1) mEq/L Chloride 105 (98-107) mEq/L Carbon Dioxide 29 (21-32) mEq/L Anion Gap 12.9 (5-15) BUN 12 (7-18) mg/dL Creatinine 0.8 (0.7-1.3) mg/dL Est Cr Clr Drug Dosing 145.56 mL/min Estimated GFR (MDRD) > 60 (>60) mL/min BUN/Creatinine Ratio 15.0 (14-18) Glucose 229 H (70-99) mg/dL POC Glucose 215 H (70-99) mg/dL Lactic Acid (0.4-2.0) mmol/L Calcium 9.3 (8.5-10.1) mg/dL Magnesium 1.7 L (1.8-2.4) mg/dL Total Bilirubin 1.4 H (0.2-1.0) mg/dL AST 19 (15-37) U/L ALT 53 (16-63) U/L Alkaline Phosphatase 64 (46-116) U/L C-Reactive Protein 6.3 H* (<1.0) mg/dL Total Protein 6.8 (6.4-8.2) g/dl Albumin 3.1 L (3.4-5.0) g/dl Globulin 3.7 gm/dL Albumin/Globulin Ratio 0.8 L (1-2) Procalcitonin ng/mL 09/16/20 Range/Units 11:03 WBC (4.23-9.07) K/mm3 RBC (4.63-6.08) M/mm3 Hgb (13.7-17.5) gm/dl Hct (40.1-51.0) % MCV (79.0-92.2) fl MCH (25.7-32.2) pg MCHC (32.2-35.5) g/dl RDW Std Deviation (35.1-43.9) fL Plt Count (163-337) K/mm3 MPV (9.4-12.3) fl Neut % (Auto) (34.0-67.9) % Lymph % (Auto) (21.8-53.1) % Clayton % (Auto) (5.3-12.2) % Eos % (Auto) (0.8-7.0) Baso % (Auto) (0.1-1.2) % Neut # (Auto) (1.78-5.38) K/mm3 Lymph # (Auto) (1.32-3.57) K/mm3 Clayton # (Auto) (0.30-0.82) K/mm3 Eos # (Auto) (0.04-0.54) K/mm3 Baso # (Auto) (0.01-0.08) K/mm3 Manual Slide Review VBG pH (7.30-7.40) VBG pCO2 (41-51) mmHg VBG pO2 (40-80) mmHG VBG HCO3 (22-26) meq/L VBG O2 Saturation VBG Base Excess (-4.0-2.0) O2 Delivery Device Sodium (136-145) mEq/L Potassium (3.5-5.1) mEq/L Chloride (98-107) mEq/L Carbon Dioxide (21-32) mEq/L Anion Gap (5-15) BUN (7-18) mg/dL Creatinine (0.7-1.3) mg/dL Est Cr Clr Drug Dosing mL/min Estimated GFR (MDRD) (>60) mL/min BUN/Creatinine Ratio (14-18) Glucose (70-99) mg/dL POC Glucose 288 H (70-99) mg/dL Lactic Acid (0.4-2.0) mmol/L Calcium (8.5-10.1) mg/dL Magnesium (1.8-2.4) mg/dL Total Bilirubin (0.2-1.0) mg/dL AST (15-37) U/L ALT (16-63) U/L Alkaline Phosphatase (46-116) U/L C-Reactive Protein (<1.0) mg/dL Total Protein (6.4-8.2) g/dl Albumin (3.4-5.0) g/dl Globulin gm/dL Albumin/Globulin Ratio (1-2) Procalcitonin ng/mL SON Results - Last 24 hrs: Microbiology 09/13/20 13:53 Blood Culture - Preliminary Blood - Venous - Lab Draw 09/13/20 13:46 Blood Culture - Preliminary Blood - Venous - Iv Start Med Orders - Current: Current Medications Acetaminophen (Acetaminophen 325 Mg Tab) 650 mg PO Q4H PRN PRN Reason: Pain (Mild 1-3)/fever Last Admin: 09/15/20 19:59 Dose: 650 mg Documented by: Docusate Sodium (Docusate Sodium 100 Mg Cap) 100 mg PO BID PRN PRN Reason: Constipation Enoxaparin Sodium (Enoxaparin 40 Mg/0.4 Ml Syringe) 40 mg SUBCUT DAILY [facility] Last Admin: 09/16/20 08:15 Dose: 40 mg Documented by: Fenofibrate (Fenofibrate 54 Mg Tab) 54 mg PO DAILY [facility] Last Admin: 09/16/20 08:15 Dose: 54 mg Documented by: Daptomycin 570 mg/ Sodium (Chloride) 50 mls @ 100 mls/hr IV Q24H [facility] Ceftriaxone Sodium 2 gm/ (Sodium Chloride) 100 mls @ 200 mls/hr IV Q24H [facility] Insulin Human Regular (Insulin Regular, Human 100 Units/Ml 3 Ml Vial) 0 unit SUBCUT TIDPC [facility]; Protocol Last Admin: 09/16/20 12:24 Dose: 6 unit Documented by: Lorazepam (Lorazepam 2 Mg/Ml Sdv) 0 mg IV Q4H PRN; Protocol PRN Reason: Withdrawal Symptoms Metformin HCl (Metformin 500 Mg Tab) 1,000 mg PO BIDMEALS [facility] Last Admin: 09/16/20 06:00 Dose: 1,000 mg Documented by: Ondansetron HCl (Ondansetron 4 Mg Tab.Dis) 4 mg PO Q4H PRN PRN Reason: nausea, able to take PO Oxycodone HCl (Oxycodone 5 Mg Tab) 5 mg PO Q4H PRN PRN Reason: Pain (moderate 4-6) Sodium Chloride (Sodium Chloride 0.9% 10 Ml Syringe) 10 ml FLUSH ASDIRECTED PRN PRN Reason: Keep Vein Open Last Admin: 09/13/20 13:49 Dose: 10 ml Documented by: Temazepam (Temazepam 15 Mg Cap) 15 mg PO BEDTIME PRN PRN Reason: Sleep Last Admin: 09/15/20 23:31 Dose: 15 mg Documented by: Discontinued Medications Enoxaparin Sodium (Enoxaparin 30 Mg/0.3 Ml Syringe) 30 mg SUBCUT DAILY [facility] Gadobenate Dimeglumine (Gadobenate Dimeglumine 529 Mg/Ml 20 Ml Sdv) 19 ml IVPUSH ONETIME ONE Stop: 09/14/20 11:01 Last Admin: 09/14/20 11:26 Dose: 19 ml Documented by: Gadobenate Dimeglumine (Gadobenate Dimeglumine 529 Mg/Ml 20 Ml Sdv) 19 ml IVPUSH ONETIME ONE Stop: 09/16/20 09:00 Last Admin: 09/16/20 09:37 Dose: 19 ml Documented by: Glipizide (Glipizide 5 Mg Tab.Er) 5 mg PO DAILY [facility] Vancomycin HCl 1.5 gm/ Sodium (Chloride) 500 mls @ 250 mls/hr IV ONETIME ONE Stop: 09/13/20 16:59 Last Admin: 09/13/20 16:16 Dose: 250 mls/hr Documented by: Vancomycin HCl 1.5 gm/ Sodium (Chloride) 250 mls @ 250 mls/hr IV Q8H [facility] Last Admin: 09/14/20 01:15 Dose: 250 mls/hr Documented by: Vancomycin HCl 1 gm/Vancomycin HCl 500 mg/ Sodium Chloride 500 mls @ 250 mls/hr IV Q8H [facility] Last Admin: 09/15/20 00:27 Dose: 250 mls/hr Documented by: Ceftriaxone Sodium 2 gm/ (Sodium Chloride) 100 mls @ 200 mls/hr IV Q24H [facility] Last Admin: 09/15/20 13:47 Dose: 200 mls/hr Documented by: Magnesium Sulfate 2 gm/ Premix 50 mls @ 25 mls/hr IV ONETIME ONE Stop: 09/15/20 09:54 Last Admin: 09/15/20 08:32 Dose: 25 mls/hr Documented by: Vancomycin HCl 1.75 gm/ Sodium (Chloride) 500 mls @ 250 mls/hr IV Q8H [facility] Stop: 09/15/20 14:00 Last Admin: 09/15/20 11:28 Dose: 250 mls/hr Documented by: Daptomycin 570 mg/ Sodium (Chloride) 50 mls @ 100 mls/hr IV ONETIME ONE Stop: 09/15/20 14:29 Last Admin: 09/15/20 14:47 Dose: 100 mls/hr Documented by: Daptomycin 570 mg/ Sodium (Chloride) 50 mls @ 100 mls/hr IV Q24H [facility] Sodium Chloride (Normal Saline) 1,000 mls @ 999 mls/hr IV ONETIME ONE Stop: 09/15/20 18:15 Last Admin: 09/15/20 18:33 Dose: 999 mls/hr Documented by: Magnesium Sulfate 4 gm/ Premix 50 mls @ 12.5 mls/hr IV ONETIME ONE Stop: 09/16/20 11:17 Last Admin: 09/16/20 08:15 Dose: 12.5 mls/hr Documented by: Morphine Sulfate (Morphine 2 Mg/Ml Syringe) 2 mg IVPUSH Q2H PRN PRN Reason: Pain (severe 7-10) Stop: 09/14/20 15:29 Sodium Chloride (Sodium Chloride 0.9% 10 Ml Syringe) 20 ml FLUSH ASDIRECTED [facility] Stop: 09/14/20 14:00 Last Admin: 09/14/20 11:26 Dose: 20 ml Documented by: Sodium Chloride (Sodium Chloride 0.9% 10 Ml Syringe) 20 ml FLUSH ASDIRECTED [facility] Stop: 09/16/20 13:00 Last Admin: 09/16/20 09:37 Dose: 20 ml Documented by: Vancomycin HCl (Pharmacy To Dose - Vancomycin) 1 dose .XX ONETIME ONE Stop: 09/13/20 14:46 Vancomycin HCl (Pharmacy To Dose - Vancomycin) 1 dose .XX ASDIRECTED [facility] Vancomycin HCl (Pharmacy To Dose - Vancomycin) 1 dose .XX ASDIRECTED PRN PRN Reason: RX TO DOSE VANCO - Exam Quality Assessment: Reports: DVT Prophylaxis. Denies: Supplemental Oxygen, Urine Catheter General: Reports: Alert, Oriented, Cooperative, No Acute Distress HEENT: Reports: Pupils Equal, Pupils Reactive, Mucous Membr. Moist/Metzger Neck: Reports: Supple, Trachea Midline Lungs: Reports: Clear to Auscultation, Normal Respiratory Effort Cardiovascular: Reports: Regular Rate, Regular Rhythm GI/Abdominal Exam: Normal Bowel Sounds, Soft, Non-Tender, No Distention (Male) Exam: Deferred Rectal (Males) Exam: Deferred Back Exam: Reports: Normal Inspection, Full Range of Motion Extremities: Normal Range of Motion, Non-Tender, No Pedal Edema, Normal Capillary Refill, Other (Approximately 1 cm circular ulceration on plantar aspect of left great toe. Significant redness and edema, both of which have greatly improved.) Skin: Reports: Warm, Dry, Intact Wound/Incisions: Reports: Drainage, Erythema Improving Neurological: Reports: No New Focal Deficit Psy/Mental Status: Reports: Alert, Normal Affect, Normal Mood
== END 2020-09-16 16:00 | disposition home or self-care (01) | DRG 638 ==
LOC: JD.ED 13:09 → JD.MS 15:25
PROVIDERS: ADMIT Internal Medicine; ATTEND Internal Medicine
PROC: 02HV33Z Insertion of Infusion Device into Superior Vena Cava, Percutaneous Approach (ICD-10-PCS; principal; 2020-09-15)
DX: E11.69 Type 2 diabetes mellitus with other specified complication (principal); M86.172 Other acute osteomyelitis, left ankle and foot; E11.621 Type 2 diabetes mellitus with foot ulcer; L97.529 Non-pressure chronic ulcer of other part of left foot with unspecified severity; E78.5 Hyperlipidemia, unspecified; G47.9 Sleep disorder, unspecified; Z20.822 Contact with and (suspected) exposure to COVID-19; Z79.4 Long term (current) use of insulin; Z98.890 Other specified postprocedural states
CPT/HCPCS: 0240U; 36415; 36569; 71046; 71046-26; 73660-26-TA; 73660-TA; 73720-26-LT; 73720-LT; 73723-26-LT; 73723-LT; 80053; 80202; 82803; 82947; 83036; 83605; 83735; 84145; 85007; 85025; 85027; 85610; 86140; 87040; 99222; 99233; 99239; 99284; 99285-25; A9270-GY; A9577; C1751; J0696; J0878; J1650; J1815-GY; J3370; J3475; J7030; J7040; J7050

== ENCOUNTER 2021-01-19 07:08 | Emergency (ER) | payer SELFPAY ==
--- NOTE | 2021-01-19 07:55 | EDM.PDOC ---
ED HPI GENERAL MEDICAL PROBLEM - General Chief Complaint: ENT Problem Stated Complaint: ENT PROBLEM Time Seen by Provider: 01/19/21 07:37 Source of Information: Reports: Patient, RN Notes Reviewed - History of Present Illness INITIAL COMMENTS - FREE TEXT/NARRATIVE: sore throat for about 4 days, painful to swallow, has R ear pressure, nasal and sinus radha with post drainage as well. Ear Pain Score (Numeric/FACES): 8 - Related Data Allergies Allergy/AdvReac Type Severity Reaction Status Date / Time No Known Allergies Allergy Verified 01/19/21 07:40 Home Meds: Home Meds Cholecalciferol (Vitamin D3) [Vitamin D3] 2,000 unit PO DAILY 06/13/18 [History] Fenofibrate 54 mg PO DAILY 06/13/18 [History] metFORMIN [Glucophage XR] 1,000 mg PO BID 09/13/20 [History] glipiZIDE [Glucotrol XL] 5 mg PO DAILY 09/14/20 [History] DAPTOmycin [Cubicin] 570 mg IV DAILY 41 Days 09/15/20 [Rx] cefTRIAXone [Rocephin] 2 gm IV DAILY #41 adv 09/15/20 [Rx] hydrOXYzine HCL [hydrOXYzine] 25 - 50 mg PO BEDTIME PRN #10 tab 09/15/20 [Rx] Amoxicillin 500 mg PO QID #30 capsule 01/19/21 [Rx] Past Medical History HEENT History: Reports: Impaired Vision Cardiovascular History: Reports: High Cholesterol Respiratory History: Reports: None Gastrointestinal History: Reports: None Genitourinary History: Reports: None 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 Musculoskeletal History: Reports: Other (See Below) Other Musculoskeletal History: left shoulder pain, bilat shoulder surgery Neurological History: Reports: None Psychiatric History: Reports: PTSD, Other (See Below) Other Psychiatric History: fatigue, sleep disorder Endocrine/Metabolic History: Reports: Diabetes, Type II Hematologic History: Reports: None Immunologic History: Reports: None Oncologic (Cancer) History: Reports: None Dermatologic History: Reports: None - Infectious Disease History Infectious Disease History: Reports: Chicken Pox, Influenza - Past Surgical History Head Surgeries/Procedures: Reports: None HEENT Surgical History: Reports: Oral Surgery Cardiovascular Surgical History: Reports: None Respiratory Surgical History: Reports: None GI Surgical History: Reports: None Male Surgical History: Reports: None Endocrine Surgical History: Reports: None Neurological Surgical History: Reports: None Musculoskeletal Surgical History: Reports: Shoulder Surgery Oncologic Surgical History: Reports: None Dermatological Surgical History: Reports: None Social & Family History - Tobacco Use Tobacco Use Status *Q: Never Tobacco User - Caffeine Use Caffeine Use: Reports: Energy Drinks - Living Situation & Occupation Living situation: Reports: Single Occupation: Employed ED ROS ENT - Review of Systems Review Of Systems: See Below Constitutional: Reports: Chills. Denies: Fever HEENT: Reports: Throat Pain (painful to swallow) Respiratory: Reports: Cough (occasional) Cardiovascular: Denies: Chest Pain GI/Abdominal: Denies: Abdominal Pain, Nausea, Vomiting Musculoskeletal: Reports: No Symptoms Skin: Denies: Rash Neurological: Reports: No Symptoms ED EXAM, ENT - Physical Exam Exam: See Below General Appearance: Alert, No Apparent Distress Ears: Normal External Exam Nose: Normal Inspection Mouth/Throat: Pharyngeal Erythema. No: Tonsillar Exudates, Tonsillar Swelling Head: Atraumatic Neck: Supple. No: Lymphadenopathy (L), Lymphadenopathy (R) Respiratory/Chest: No Respiratory Distress, Lungs Clear, Normal Breath Sounds Cardiovascular: Regular Rate, Rhythm Extremities: Normal Inspection, Normal Range of Motion Neurological: Alert, Oriented, No Motor/Sensory Deficits Skin: Warm, Dry, Normal Color, No Rash Course - Vital Signs Last Recorded V/S: Last Vital Signs Temp 97.3 F 01/19/21 07:36 Pulse 100 01/19/21 07:36 Resp 18 01/19/21 07:36 BP 143/99 H 01/19/21 07:36 Pulse Ox 96 01/19/21 07:36 Departure - Departure Time of Disposition: 07:51 Disposition: Home, Self-Care 01 Condition: Fair Clinical Impression: Otitis media Pharyngitis Qualifiers: Pharyngitis/tonsillitis etiology: unspecified etiology Qualified Code(s): J02.9 - Acute pharyngitis, unspecified - Discharge Information Prescriptions: Amoxicillin 500 mg PO QID #30 capsule Instructions: Otitis Media, Adult, [id number], Pharyngitis, [id number] Referrals: Vandana Maddox PA-C [Primary Care Provider] - Forms: ED Department Discharge Additional Instructions: amoxicillin 500 mg 4 times daily. You can take this 2 capsules in the morning and 2 in the evening rather than one 4 times daily. Prescription has been sent to the medicine shop. Tylenol 3 to 4 times daily as needed, decongestant as needed. Follow up clinic if not much better within 3 to 5 days as expected. Sepsis Event Note (ED) - Evaluation Sepsis Screening Result: No Definite Risk
== END 2021-01-19 08:12 | disposition home or self-care (01) ==
LOC: JD.ED 07:08
DX: J02.9 Acute pharyngitis, unspecified (principal); H66.91 Otitis media, unspecified, right ear; I10 Essential (primary) hypertension; E11.9 Type 2 diabetes mellitus without complications; Z79.84 Long term (current) use of oral hypoglycemic drugs; Z79.899 Other long term (current) drug therapy
CPT/HCPCS: 99283

== ENCOUNTER 2021-01-29 07:03 | Emergency (ER) | payer SELFPAY ==
[2021-01-29] MEDS ORDERED: Metoclopramide 10 MG/2 ML SDV IVPUSH ONE (07:37)
--- NOTE | 2021-01-29 07:39 | EDM.PDOC ---
ED HPI GENERAL MEDICAL PROBLEM - General Chief Complaint: Fever Stated Complaint: Fever bodyaches vomitting Time Seen by Provider: 01/29/21 07:28 Source of Information: Reports: Patient History Limitations: Reports: No Limitations - History of Present Illness INITIAL COMMENTS - FREE TEXT/NARRATIVE: 40-year-old male presents to the ED with chief complaint of generalized myalgia headache sore throat and paroxysmal minimally productive cough. Associated development of nausea and vomiting which is really rare for him. States he vomited up supper eaten last night and then mostly bilious emesis. No diarrhea. Did not take any Motrin or Tylenol overnight. States he just got over an upper respiratory tract infection treated with antibiotics and did feel better. This came on acutely over the last 12 to 14 hours no known exposure to COVID-19 illness. He is unvaccinated against this virus. Of note the patient is type II diabetic treated with glipizide and Metformin. Onset: Sudden Onset Date: 01/28/21 Onset Time: 14:00 Duration: Hour(s):, Getting Worse Location: Reports: Head (Generalized myalgia), Chest ( headache paroxysmal nonproductive cough), Generalized, Other (Nausea and vomiting) Quality: Reports: Ache, Other (Generalized deep ache) Severity: Moderate (8 out of 10) Improves with: Reports: None Worsens with: Reports: None Context: Denies: Activity, Exercise, Lifting, Sick Contact, Trauma, Other Associated Symptoms: Reports: Cough, Fever/Chills, Headaches, Loss of Appetite, Malaise, Nausea/Vomiting, Shortness of Breath, Weakness (Generalized weakness). Denies: Confusion, Chest Pain, cough w sputum (Paroxysmal minimally productive cough), Diaphoresis, Rash, Seizure, Syncope Treatments ACID ADJUSTER: Reports: Other (see below) (None. Of note patient is a type II diabetic) Generalized Pain Score (Numeric/FACES): 6 - Related Data Allergies Allergy/AdvReac Type Severity Reaction Status Date / Time No Known Allergies Allergy Verified 01/29/21 07:15 Home Meds: Home Meds Cholecalciferol (Vitamin D3) [Vitamin D3] 2,000 unit PO DAILY 06/13/18 [History] Fenofibrate 54 mg PO DAILY 06/13/18 [History] metFORMIN [Glucophage XR] 1,000 mg PO BID 09/13/20 [History] glipiZIDE [Glucotrol XL] 5 mg PO DAILY 09/14/20 [History] hydrOXYzine HCL [hydrOXYzine] 25 - 50 mg PO BEDTIME PRN #10 tab 09/15/20 [Rx] Hydrocodone/Chlorphen P-Stirex [Hydrocodone-Chlorphen ER Susp] 5 ml PO Q12H PRN #60 ml 01/29/21 [Rx] Ondansetron [Zofran] 4 mg BUCCAL Q6H PRN #10 tab 01/29/21 [Rx] Past Medical History HEENT History: Reports: Impaired Vision, Other (See Below) Other HEENT History: strep throat Cardiovascular History: Reports: High Cholesterol Respiratory History: Reports: None Gastrointestinal History: Reports: None Genitourinary History: Reports: None 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 Musculoskeletal History: Reports: Fracture, Other (See Below) Other Musculoskeletal History: left shoulder pain, bilat shoulder surgery Neurological History: Reports: None Psychiatric History: Reports: PTSD, Other (See Below) Other Psychiatric History: fatigue, sleep disorder Endocrine/Metabolic History: Reports: Diabetes, Type II Hematologic History: Reports: None Immunologic History: Reports: None Oncologic (Cancer) History: Reports: None Dermatologic History: Reports: None - Infectious Disease History Infectious Disease History: Reports: Chicken Pox, Influenza - Past Surgical History HEENT Surgical History: Reports: Oral Surgery Musculoskeletal 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, Shoulder Surgery Oncologic Surgical History: Reports: None Social & Family History - Tobacco Use Tobacco Use Status *Q: Never Tobacco User Second Hand Smoke Exposure: No - Caffeine Use Caffeine Use: Reports: Soda - Alcohol Use Days Per Week of Alcohol Use: 3 Number of Drinks Per Day: 4 Total Drinks Per Week: 12 - Recreational Drug Use Recreational Drug Use: No - Living Situation & Occupation Living situation: Reports: Single Occupation: Employed [facility] - Review of Systems Review Of Systems: See Below Constitutional: Reports: Fever, Chills, Malaise, Weakness, Fatigue, Decreased Appetite HEENT: Reports: Throat Pain Respiratory: Reports: Shortness of Breath, Cough. Denies: Wheezing, Pleuritic Chest Pain, Sputum, Hemoptysis Cardiovascular: Reports: Blood Pressure Problem, Lightheadedness. Denies: Chest Pain, Claudication, Dyspnea on Exertion, Orthopnea, Palpitations, Syncope, Other Endocrine: Reports: Fatigue (Upon standing.) GI/Abdominal: Reports: Decreased Appetite : Reports: Other (Urine is dark in color) Musculoskeletal: Reports: Joint Pain, Muscle Pain (Generalized myalgia particularly) Skin: Reports: No Symptoms Neurological: Reports: Headache Psychiatric: Reports: No Symptoms Hematologic/Lymphatic: Reports: No Symptoms Immunologic: Reports: No Symptoms ED EXAM, GENERAL - Physical Exam Exam: See Below Exam Limited By: No Limitations General Appearance: Alert, WD/WN, Mild Distress, Other (He is very warm to palpation. Temperature is 36.6 degrees recorded by nursing staff but he is warmer than this. Heart rate was 97 and sinus respiratory is 18 with O2 sats of 97% room air. BP 156 102.) Eye Exam: Bilateral Eye: Normal Inspection (No blepharal pallor or scleral icterus), PERRL Ears: Other Throat/Mouth: Other (Oropharynx appears normal tongue is mildly dry and coated) Head: Atraumatic, Normocephalic Neck: Normal Inspection, Supple, Non-Tender, Full Range of Motion. No: Carotid Bruit, Lymphadenopathy (L), Lymphadenopathy (R) Respiratory/Chest: No Respiratory Distress, Lungs Clear, Normal Breath Sounds, No Accessory Muscle Use Cardiovascular: Normal Peripheral Pulses, Regular Rate, Rhythm, No Edema, No Gallop, No JVD, No Rub Peripheral Pulses: 3+: Carotid (L), Carotid (R), Posterior Tibial (L), Posterior Tibial (R), Dorsalis Pedis (L), Dorsalis Pedis (R) GI/Abdominal: Normal Bowel Sounds, Soft, Non-Tender, No Organomegaly, No Distention, Other (No surgical scars). No: Distended, Guarding, Rigid, Rebound (Male) Exam: No Hernia Back Exam: Normal Inspection, Full Range of Motion. No: CVA Tenderness (L), CVA Tenderness (R) Extremities: Normal Inspection, Normal Range of Motion, Non-Tender, No Pedal Edema Neurological: Alert, Oriented, CN II-XII Intact, Normal Cognition Psychiatric: Normal Affect, Normal Mood Skin Exam: Warm, Dry, Intact, Normal Color, No Rash Course - Vital Signs Last Recorded V/S: Last Vital Signs Temp 36.5 C 01/29/21 09:06 Pulse 100 01/29/21 09:06 Resp 16 01/29/21 09:06 BP 138/87 01/29/21 09:06 Pulse Ox 97 01/29/21 09:06 - Orders/Labs/Meds Labs: Laboratory Tests 01/29/21 01/29/21 01/29/21 Range/Units 07:15 07:55 07:55 WBC 3.93 L (4.23-9.07) K/mm3 RBC 3.94 L (4.63-6.08) M/mm3 Hgb 13.8 (13.7-17.5) gm/dl Hct 39.2 L (40.1-51.0) % MCV 99.5 H (79.0-92.2) fl MCH 35.0 H (25.7-32.2) pg MCHC 35.2 (32.2-35.5) g/dl RDW Std Deviation 56.0 H (35.1-43.9) fL Plt Count 136 L (163-337) K/mm3 MPV 9.0 L (9.4-12.3) fl Neut % (Auto) 65.4 (34.0-67.9) % Lymph % (Auto) 24.2 (21.8-53.1) % Fleming % (Auto) 7.6 (5.3-12.2) % Eos % (Auto) 1.5 (0.8-7.0) Baso % (Auto) 0.3 (0.1-1.2) % Neut # (Auto) 2.57 (1.78-5.38) K/mm3 Lymph # (Auto) 0.95 L (1.32-3.57) K/mm3 Fleming # (Auto) 0.30 (0.30-0.82) K/mm3 Eos # (Auto) 0.06 (0.04-0.54) K/mm3 Baso # (Auto) 0.01 (0.01-0.08) K/mm3 Sodium 141 (136-145) mEq/L Potassium 3.9 (3.5-5.1) mEq/L Chloride 103 (98-107) mEq/L Carbon Dioxide 26 (21-32) mEq/L Anion Gap 15.9 H (5-15) BUN 9 (7-18) mg/dL Creatinine 0.7 (0.7-1.3) mg/dL Est Cr Clr Drug Dosing 171.01 mL/min Estimated GFR (MDRD) > 60 (>60) mL/min BUN/Creatinine Ratio 12.9 L (14-18) Glucose 299 H (70-99) mg/dL POC Glucose (70-99) mg/dL Lactic Acid Calcium 9.2 (8.5-10.1) mg/dL Magnesium 1.9 (1.8-2.4) mg/dL Total Bilirubin 2.2 H (0.2-1.0) mg/dL AST TNP ALT 96 H (16-63) U/L Alkaline Phosphatase 79 (46-116) U/L Lactate Dehydrogenase 193 (85-227) U/L Troponin I 0.037 (0.00-0.056) ng/mL C-Reactive Protein <0.2 (<1.0) mg/dL Total Protein 6.8 (6.4-8.2) g/dl Albumin 3.6 (3.4-5.0) g/dl Globulin 3.2 gm/dL Albumin/Globulin Ratio 1.1 (1-2) Ketones (0.0-0.3) mM Influenza Type A RNA Negative (NEGATIVE) Influenza Type B RNA Negative (NEGATIVE) SARS-CoV-2 RNA (OZZIE) Negative (NEGATIVE) 01/29/21 01/29/21 01/29/21 Range/Units 07:55 07:55 10:49 WBC (4.23-9.07) K/mm3 RBC (4.63-6.08) M/mm3 Hgb (13.7-17.5) gm/dl Hct (40.1-51.0) % MCV (79.0-92.2) fl MCH (25.7-32.2) pg MCHC (32.2-35.5) g/dl RDW Std Deviation (35.1-43.9) fL Plt Count (163-337) K/mm3 MPV (9.4-12.3) fl Neut % (Auto) (34.0-67.9) % Lymph % (Auto) (21.8-53.1) % Fleming % (Auto) (5.3-12.2) % Eos % (Auto) (0.8-7.0) Baso % (Auto) (0.1-1.2) % Neut # (Auto) (1.78-5.38) K/mm3 Lymph # (Auto) (1.32-3.57) K/mm3 Fleming # (Auto) (0.30-0.82) K/mm3 Eos # (Auto) (0.04-0.54) K/mm3 Baso # (Auto) (0.01-0.08) K/mm3 Sodium (136-145) mEq/L Potassium (3.5-5.1) mEq/L Chloride (98-107) mEq/L Carbon Dioxide (21-32) mEq/L Anion Gap (5-15) BUN (7-18) mg/dL Creatinine (0.7-1.3) mg/dL Est Cr Clr Drug Dosing mL/min Estimated GFR (MDRD) (>60) mL/min BUN/Creatinine Ratio (14-18) Glucose (70-99) mg/dL POC Glucose 274 H (70-99) mg/dL Lactic Acid TNP Calcium (8.5-10.1) mg/dL Magnesium (1.8-2.4) mg/dL Total Bilirubin (0.2-1.0) mg/dL AST ALT (16-63) U/L Alkaline Phosphatase (46-116) U/L Lactate Dehydrogenase (85-227) U/L Troponin I (0.00-0.056) ng/mL C-Reactive Protein (<1.0) mg/dL Total Protein (6.4-8.2) g/dl Albumin (3.4-5.0) g/dl Globulin gm/dL Albumin/Globulin Ratio (1-2) Ketones 1.37 (0.0-0.3) mM Influenza Type A RNA (NEGATIVE) Influenza Type B RNA (NEGATIVE) SARS-CoV-2 RNA (OZZIE) (NEGATIVE) Meds: Medications Discontinued Medications Generic Name Dose Route Start Last Admin Trade Name Freq PRN Reason Stop Dose Admin Acetaminophen 650 mg 01/29/21 07:50 01/29/21 08:33 Acetaminophen 325 Mg Tab PO 01/29/21 07:51 650 mg ONETIME ONE Administration Dextrose/Sodium Chloride 1,000 mls @ 500 mls/hr 01/29/21 07:45 01/29/21 08:00 Dextrose 5%-Normal Saline IV 500 mls/hr ASDIRECTED DEMIAN Administration Sodium Chloride 1,000 mls @ 999 mls/hr 01/29/21 09:00 01/29/21 09:05 Normal Saline IV 999 mls/hr ASDIRECTED DEMIAN Administration Insulin Human Regular 8 unit 01/29/21 08:56 01/29/21 09:04 Insulin Regular, Human 100 Units/Ml 3 Ml Vial SUBCUT 01/29/21 08:57 8 unit ONETIME ONE Administration Metoclopramide HCl 10 mg 01/29/21 07:37 01/29/21 07:58 Metoclopramide 10 Mg/2 Ml Sdv IVPUSH 01/29/21 07:38 10 mg ONETIME ONE Administration - Radiology Interpretation Free Text/Narrative:: 40-year-old male presents to the ED with acute onset of generalized myalgia, fever and chills, headache, sore throat and nausea and vomiting which is really rare for him. He is a type II bite diabetic controlled with Metformin and glipizide. He just finished a course of antibiotics for upper respiratory tract infection and felt improved. The symptoms came on rapidly yesterday afternoon. No known exposure to COVID-19 illness. He has not been vaccinated. On examination he does feel warm to palpation. Oropharynx and ears are normal. Chest is clear to all station percussion. I can smell ketones however in his br eath. Plan IV normal saline at 500 mils an hour. Given Reglan 10 mg IV for nausea relief. I will hold off on Toradol until I see his renal function. He will receive Tylenol 60 mg p.o. for fever relief in approximately 15 minutes once the Reglan takes effect. Chest x-ray and routine labs including lactic acid and serum ketones to be done. - Re-Assessments/Exams Free Text/Narrative Re-Assessment/Exam: 01/29/21 08:06 Influenza and COVID-19 screen are both negative. Chest x-ray done portably reveals heart size and mediastinum to be within normal limits. Slight parenchymal density is seen off the left cardiac apex. This finding is noted on most recent studies but is not seen on more remote exams. Lungs otherwise are clear. Bony structures show nothing acute. Impression density of the left cardiac apex. Difficult to exclude a small mass. Recommendations are for a noncontrast chest CT to exclude this possibility Free Text/Narrative Re-Assessment/Exam: 01/29/21 08:33 chest x-ray done portably reveals poor inspirational effort. Lung parenchyma visualized are clear. Cardiac silhouette and mediastinum are normal. No pleural effusion no pneumothorax 01/29/21 08:50 White count is 3.93 with the auto differential revealing 65% neutrophils. Hemoglobin is 13.8 with hematocrit of 39.2. MCV is 99.5. Platelet count is low normal at 136,000. Sodium is 141 with a potassium of 3.9. Chloride 103 with a bicarb of 26. Anion gap is 15.9. BUN is 9 with a creatinine of 0.7 and GFR greater than 60. Glucose is 299. Calcium 9.2 with a magnesium of 1.9 total bilirubin is elevated at 2.2. AST is not available ALT elevated at 96. Alkaline phosphatase 79 LDH 193. Troponin I is 0.037. C- reactive protein less than 0.2 total protein 6.8 with an albumin fraction of 3.6 serum ketones are elevated at 1.37. Influenza screen is negative and COVID-19 screen is negative. Patient's labs suggest that he has underlying COVID-19 illness. The Covid screen came back negative but his symptoms came on within the last 12 to 16 hours. I feel is too early to get a confirmatory test result. IV will change to normal saline at open. Will be given 8 units of regular insulin due to mild ketosis and blood sugar 399. 01/29/21 10:04 patient is sleeping at this time. O2 sats are 92% on room air. Blood sugar to be checked but 1030 hrs. this morning an hour and a half after insulin has been given Departure - Departure Time of Disposition: 11:36 Disposition: Home, Self-Care 01 Condition: Fair Clinical Impression: Viral upper respiratory tract infection, COVID - Discharge Information *PRESCRIPTION DRUG MONITORING PROGRAM REVIEWED*: Not Applicable *COPY OF PRESCRIPTION DRUG MONITORING REPORT IN PATIENT ALIN: Not Applicable Prescriptions: Hydrocodone/Chlorphen P-Stirex [Hydrocodone-Chlorphen ER Susp] 5 ml PO Q12H PRN #60 ml PRN Reason: Cough relief Ondansetron [Zofran] 4 mg BUCCAL Q6H PRN #10 tab PRN Reason: nausea or vomiting Instructions: Viral Respiratory Infection, [id number], What You Should Know About COVID-19 to Protect Yourself and Others - CDC, 10 Things You Can Do to Manage Your COVID-19 Symptoms at Home - CDC (09/04/2020), COVID-19: Quarantine vs. Isolation - [facility] (02/06/2020) Referrals: Vandana Maddox PA-C [Primary Care Provider] - Forms: ED Department Discharge, ED Return to Work/School Form Additional Instructions: Evaluation in the emergency room today in regards to abrupt onset of fever chills body aches sore throat nasal congestion and paroxysmal cough starting yesterday. The above the signs and symptoms of COVID-19 illness. However COVID-19 screen came back negative at this time. Your lab tests are suggestive of COVID-19 illness as well. At this time you should be treated like COVID-19 with quarantine and be considered contagious to others for a minimum of another 10 days. Suggest having a repeat COVID-19 screen carried out on February 01. There is a Covid clinic [place] [facility] and you can call [phone] to arrange a time to come in and have your Covid test done. If this one is negative then you would be free of quarantine. Lab test revealed an elevated blood sugar today of 399. You therefore given 10 units of insulin subcutaneously to bring your blood sugars under control and an hour and a half later they had come down to 240. Suggest diet as tolerated particularly with Gatorade zero or Powerade zero to maintain hydration since you have lost her appetite likely due to COVID-19 illness. Continue Motrin 600 mg every 6 hours for fever, headache and body ache relief. May also use Tylenol 1 g 3 hours after the Motrin dose of necessary for fever and body ache and headache relief. Note will be given to excuse her from work for at least 5 days until we are clear that you do not have COVID-19 illness as I clinically suspect you do. Suggest discontinuing your Metformin until you are able to resume a regular diet and continue only with the glipizide. May use Zofran 4 mg under your tongue every 4-6 hours necessary for relief of any nausea or vomiting and cough syrup Tussionex 5 mils every 12 hours necessary for cough relief. Plan on taking this a good hour before bed as it takes about an hour to work so that you can get some sleep without coughing all night. Sepsis Event Note (ED) - Evaluation Sepsis Screening Result: No Definite Risk - Focused Exam Vital Signs: Vital Signs Temp Temp Pulse Resp BP Pulse Ox 01/29/21 09:06 36.5 C 100 16 138/87 97 01/29/21 08:33 36.7 C 01/29/21 07:10 36.6 C 97 18 156/102 H 97
[2021-01-29] MEDS ORDERED: Dextrose 5%-0.9% NaCl 1,000 ML IV SCH (07:45)
[2021-01-29] MEDS ORDERED: Acetaminophen 325 MG Tab PO ONE (07:50)
[2021-01-29 08:00] LABS: CORONAVIRUS COVID-19 NAA NEGATIVE (NEGATIVE)
--- NOTE | 2021-01-29 08:08 | CR ---
Chest: Portable view of the chest was obtained. Comparison: Prior chest x-ray of 09/15/20. Heart size and mediastinum are within normal limits. Lungs are clear with no acute parenchymal change. Bony structures show nothing acute. Impression: 1. Nothing acute is seen on portable chest x-ray. Diagnostic code #1
[2021-01-29] MEDS ORDERED: Insulin Regular, Human 100 Units/ML 3 ML Vial SUBCUT ONE (08:56)
[2021-01-29] MEDS ORDERED: Sodium Chloride 0.9% 1,000 ML IV SCH (09:00)
== END 2021-01-29 11:55 | disposition home or self-care (01) ==
LOC: SUPCPDRO 07:03 → JD.ED 07:03
DX: U07.1 COVID-19 (principal); J06.9 Acute upper respiratory infection, unspecified; E78.00 Pure hypercholesterolemia, unspecified; E11.9 Type 2 diabetes mellitus without complications; Z79.84 Long term (current) use of oral hypoglycemic drugs; Z79.899 Other long term (current) drug therapy
CPT/HCPCS: 0240U; 36415; 71045; 80053; 82009; 82947; 83615; 83735; 84484; 85025; 86140; 96374; 99284; A9270; J1815; J2765; J7030; J7042

== ENCOUNTER 2021-02-26 07:09 | Emergency (ER) | payer SELFPAY ==
--- NOTE | 2021-02-26 07:34 | EDM.PDOC ---
ED HPI GENERAL MEDICAL PROBLEM - General Chief Complaint: Respiratory Problem Stated Complaint: COUGHING BLOOD Time Seen by Provider: 02/26/21 07:34 Source of Information: Reports: Patient History Limitations: Reports: No Limitations - History of Present Illness INITIAL COMMENTS - FREE TEXT/NARRATIVE: 40-year-old male presents to the ED due to paroxysmal cough for the better part of the week with slight yellow-tinged sputum. Headache and mild sore throat from coughing so much. Upper chest pain from coughing. Cough is paroxysmal and severe at times. No syncope. Patient is a type II diabetic and reports his sugars are under 150. Appetite has been good. No nausea vomiting or diarrhea. This morning he coughed so hard that he produced to have a handful of ashley blood i.e. hemoptysis. Fever at initial onset of illness a week ago but nothing for the last 3 days. Onset: Today, Sudden Onset Date: 02/26/21 Onset Time: 06:00 (Cough ashley hemoptysis this morning) Duration: Minutes:, Intermittent Location: Reports: Chest (Paroxysmal productive cough for the better part of a week. Development of ashley hemoptysis this morning due to paroxysmal coughing.) Quality: Reports: Other (Jose mopped assist due to paroxysmal cough) Severity: Moderate Improves with: Reports: None Worsens with: Reports: None Context: Denies: Activity, Exercise, Lifting, Sick Contact, Trauma, Other Associated Symptoms: Reports: Cough, cough w sputum (Severe paroxysmal cough for the better part of a week. Yellow-green sputum with ashley mopped assist this morning. States sputum contain ashley blood approximately half a handful this morning. Bright red blood.), Malaise. Denies: Diaphoresis, Fever/Chills, Head aches, Loss of Appetite, Nausea/Vomiting, Seizure, Shortness of Breath, Syncope, Weakness Treatments [employer] RO[employer]: Reports: Acetaminophen - Related Data Allergies Allergy/AdvReac Type Severity Reaction Status Date / Time No Known Allergies Allergy Verified 02/26/21 07:32 Home Meds: Home Meds Cholecalciferol (Vitamin D3) [Vitamin D3] 2,000 unit PO DAILY 06/13/18 [History] Fenofibrate 54 mg PO DAILY 06/13/18 [History] metFORMIN [Glucophage XR] 1,000 mg PO BID 09/13/20 [History] glipiZIDE [Glucotrol XL] 5 mg PO DAILY 09/14/20 [History] hydrOXYzine HCL [hydrOXYzine] 25 - 50 mg PO BEDTIME PRN #10 tab 09/15/20 [Rx] Hydrocodone/Chlorphen P-Stirex [Hydrocodone-Chlorphen ER Susp] 5 ml PO Q12H PRN #60 ml 01/29/21 [Rx] Ondansetron [Zofran] 4 mg BUCCAL Q6H PRN #10 tab 01/29/21 [Rx] Doxycycline [Vibra-Tabs] 100 mg PO Q12HR #20 tab 02/26/21 [Rx] Hydrocodone/Chlorphen P-Stirex [Hydrocodone-Chlorphen ER Susp] 5 ml PO Q12H PRN #60 ml 02/26/21 [Rx] Past Medical History HEENT History: Reports: Impaired Vision, Other (See Below) Other HEENT History: strep throat Cardiovascular History: Reports: High Cholesterol Respiratory History: Reports: None Gastrointestinal History: Reports: None Genitourinary History: Reports: None 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 Musculoskeletal History: Reports: Fracture, Other (See Below) Other Musculoskeletal History: left shoulder pain, bilat shoulder surgery Neurological History: Reports: None Psychiatric History: Reports: PTSD, Other (See Below) Other Psychiatric History: fatigue, sleep disorder Endocrine/Metabolic History: Reports: Diabetes, Type II Hematologic History: Reports: None Immunologic History: Reports: None Oncologic (Cancer) History: Reports: None Dermatologic History: Reports: None - Infectious Disease History Infectious Disease History: Reports: Chicken Pox, Influenza - Past Surgical History HEENT Surgical History: Reports: Oral Surgery 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 Denies: Chills, Night Sweats, Diaphoresis, Decreased Appetite (From like to sleep due to coughing all night), Weight Loss HEENT: Reports: Sinus Problem (Sinus congestion), Throat Pain. Denies: Ear Pain Respiratory: Reports: Cough, Sputum (Severe paroxysmal intermittent cough worse by laying down.), Hemoptysis (Half a handful of ashley bright red blood this morning.). Denies: Shortness of Breath, Wheezing, Pleuritic Chest Pain Cardiovascular: Reports: Chest Pain (Upper anterior chest pain from coughing so much. Of note the patient is not on blood thinners.), Blood Pressure Problem. Denies: Claudication, Dyspnea on Exertion, Edema, Lightheadedness, Orthopnea, Palpitations Endocrine: Reports: Fatigue (He believes from not being able to sleep due to cough) GI/Abdominal: Reports: No Symptoms. Denies: Diarrhea, Nausea, Vomiting : Reports: No Symptoms Musculoskeletal: Reports: Muscle Pain Skin: Reports: No Symptoms (Mild generalized myalgia worse with the initial onset of illness) Neurological: Reports: No Symptoms Psychiatric: Reports: No Symptoms Hematologic/Lymphatic: Reports: No Symptoms Immunologic: Reports: No Symptoms ED EXAM, GENERAL - Physical Exam Exam: See Below Exam Limited By: No Limitations General Appearance: Alert, WD/WN, No Apparent Distress, Other (Temperature is 36.8 degrees. Heart rate 95 and sinus. SPECT rate is 18 with O2 sats of 97% on room air. BP 141/98.) Eye Exam: Bilateral Eye: Normal Inspection (No blepharal pallor or scleral icterus), PERRL Ears: Normal External Exam, Normal Canal, Hearing Grossly Normal, Other (Left serous otitis media. Right TM is normal). No: Normal TMs Ear Exam: Left Ear: TM Bulging Throat/Mouth: Normal Inspection, Normal Lips, Normal Teeth, Normal Oropharynx Neck: Normal Inspection, Supple, Non-Tender, Full Range of Motion. No: Lymphadenopathy (L), Lymphadenopathy (R) Respiratory/Chest: No Respiratory Distress, Lungs Clear, Normal Breath Sounds, No Accessory Muscle Use. No: Rhonchi, Wheezing Cardiovascular: Normal Peripheral Pulses, Regular Rate, Rhythm, No Edema, No Gallop, No Murmur Peripheral Pulses: 2+: Posterior Tibial (L), Posterior Tibial (R), Dorsalis Pedis (L), Dorsalis Pedis (R), 3+: Carotid (L), Carotid (R) GI/Abdominal: Normal Bowel Sounds, Soft, Non-Tender, No Organomegaly, No Abnormal Bruit, No Mass, Pelvis Stable Extremities: Normal Inspection, Normal Range of Motion, Non-Tender Neurological: Alert, Oriented, CN II-XII Intact, Normal Cognition Psychiatric: Normal Affect, Normal Mood Skin Exam: Warm, Dry, Intact, Normal Color, No Rash Course - Vital Signs Last Recorded V/S: Last Vital Signs Temp 36.8 C 02/26/21 07:28 Pulse 95 02/26/21 07:28 Resp 18 02/26/21 07:28 BP 141/98 H 02/26/21 07:28 Pulse Ox 97 02/26/21 07:28 - Orders/Labs/Meds Orders: Active Orders 24 hr Category Date Time Status Chest wo Cont [CT] Stat Exams 02/26/21 07:47 Taken Labs: Laboratory Tests 02/26/21 Range/Units 07:44 Influenza Type A RNA Negative (NEGATIVE) Influenza Type B RNA Negative (NEGATIVE) SARS-CoV-2 RNA (OZZIE) Negative (NEGATIVE) - Radiology Interpretation Free Text/Narrative:: 40-year-old male presents to the ED with a history of upper respiratory tract infection for the better part of a week. Initial onset of fever mild chills headache mild myalgia. Subsequently developed a paroxysmal cough producing some mild yellow-green sputum. However this morning after paroxysmal coughing he did cough up a half a handful of bright red blood. This is the reason for him to come to the ED. He denies fever or chills. States his appetite is good. He has no nausea vomiting or diarrhea. Mild sore throat from coughing so much. Not able to sleep very well due to paroxysmal cough. Patient is a type II diabetic and states his sugars have been good which is means for the most part under 150. Plan he will have CT of the chest without contrast this morning. - Re-Assessments/Exams Free Text/Narrative Re-Assessment/Exam: 02/26/21 09:20: Screen for COVID-19 illness and influenza came back negative. CT scan of the chest has been performed without contrast. Lungs are clear. No groundglass or consolidation appearance. No airway thickening or bronchiectasis evident. No pleural effusion or pneumothorax. Mediastinum shows no adenopathy. Heart size is normal and aorta appears normal. No evidence of coronary artery calcification. In the upper abdomen there is evidence of mild hepatic steatosis. Layering hyperdensity in the gallbladder. Incompletely seen spleen which is enlarged measuring at least 15 cm in craniocaudal length. Musculoskeletal is otherwise unremarkable. Plan he will be placed on cough syrup Tussionex 5 mils every 12 hours as needed for paroxysmal cough. It is likely that he is ruptured a vein in his upper airway from coughing so hard. He is likely see some further blood over the next 2 days and then it should go away. He continues to be congested nasally with serous otitis media. I'm therefore going to place him on antibiotic doxycycline 100 mg twice daily for the next 10 days. Departure - Departure Time of Disposition: 09:25 Disposition: Home, Self-Care 01 Condition: Fair Clinical Impression: Viral bronchitis, Cough with hemoptysis Sinusitis Qualifiers: Sinusitis location: maxillary Chronicity: acute Recurrence: non-recurrent Qualified Code(s): J01.00 - Acute maxillary sinusitis, unspecified - Discharge Information *PRESCRIPTION DRUG MONITORING PROGRAM REVIEWED*: No *COPY OF PRESCRIPTION DRUG MONITORING REPORT IN PATIENT ALIN: No Prescriptions: Hydrocodone/Chlorphen P-Stirex [Hydrocodone-Chlorphen ER Susp] 5 ml PO Q12H PRN #60 ml PRN Reason: Severe paroxysmal cough Doxycycline [Vibra-Tabs] 100 mg PO Q12HR #20 tab Instructions: Sinusitis, Adult, [id number], Hemoptysis, Upper Respiratory Infection, Adult, [id number] Referrals: Vandana Maddox PA-C [Primary Care Provider] - Forms: ED Department Discharge, ED Return to Work/School Form Additional Instructions: Evaluation in the emergency room today in regards to severe paroxysmal cough producing ashley blood this morning. Coughing for the better part of a week or more. Associated nasal congestion and sinusitis. There is some fluid behind her left eardrum as well due to blockage of the upper airway from sinus infection. Testing for COVID-19 and influenza a and B both came back negative. Therefore you have some other virus causing current bronchitis syndrome. CT of the chest proved to be within normal limits with no evidence of pneumonia or cancer. Did identify some gallstones within your gallbladder. Treatment at this time is to be cough syrup Tussionex 5 mils every 12 hours as needed for relief of severe paroxysmal cough. Noted takes a good hour to work and may be taken with food as it can cause nausea and empty stomach. It should be taken about an hour before planned to go to bed as it takes about an hour to work. Use antibiotic doxycycline 100 mg twice daily for sinus infection and bronchitis. Note given to be off work the remainder of today. Follow-up with personal care provider if not markedly improved in the next 5 days. Sepsis Event Note (ED) - Evaluation Sepsis Screening Result: No Definite Risk - Focused Exam Vital Signs: Vital Signs Temp Pulse Resp BP Pulse Ox 02/26/21 07:28 36.8 C 95 18 141/98 H 97 - My Orders Last 24 Hours: My Active Orders 02/26/21 07:47 Chest wo Cont [CT] Stat - Assessment/Plan Last 24 Hours: My Active Orders 02/26/21 07:47 Chest wo Cont [CT] Stat
[2021-02-26 08:36] LABS: CORONAVIRUS COVID-19 NAA NEGATIVE (NEGATIVE)
--- NOTE | 2021-02-26 09:52 | CT ---
EXAM: CT CHEST W/O LOCATION: [facility] DATE/TIME: 02/26/2021 8:27 AM INDICATION: Productive cough. Hemoptysis. COMPARISON: None. TECHNIQUE: CT chest without IV contrast. Multiplanar reformats were obtained. Dose reduction techniques were used. CONTRAST: None. FINDINGS: LUNGS AND PLEURA: Lungs are clear. No groundglass or consolidation. No airway thickening and bronchiectasis. No pleural effusion or pneumothorax. MEDIASTINUM/AXILLAE: No adenopathy. Normal heart size. Nonaneurysmal aorta. CORONARY ARTERY CALCIFICATION: None. UPPER ABDOMEN: Mild hepatic steatosis. Layering hyperdensity in the gallbladder. Incompletely seen spleen is enlarged measuring at least 15 cm in craniocaudad length. MUSCULOSKELETAL: Unremarkable. IMPRESSION: 1. No findings to explain symptoms. Lungs are clear. 2. Mild hepatic steatosis. 3. Incompletely seen splenomegaly, indeterminate. 4. Cholelithiasis. SIGNED BY: Pritesh Tavares DO 02/26/2021 10:10 AM [facility]
== END 2021-02-26 09:40 | disposition home or self-care (01) ==
LOC: JD.ED 07:09
DX: J20.8 Acute bronchitis due to other specified organisms (principal); J01.00 Acute maxillary sinusitis, unspecified; R04.2 Hemoptysis; E11.9 Type 2 diabetes mellitus without complications; E78.00 Pure hypercholesterolemia, unspecified; Z79.84 Long term (current) use of oral hypoglycemic drugs; Z20.822 Contact with and (suspected) exposure to COVID-19
CPT/HCPCS: 0240U; 71250; 99284

== ENCOUNTER 2021-06-21 11:28 | Emergency (ER) | payer BC, MEDICAID | END 2021-06-21 12:18 | disposition home or self-care (01) | LOC: JD.ED 11:28 | DX: H10.33 Unspecified acute conjunctivitis, bilateral (principal); B96.89 Other specified bacterial agents as the cause of diseases classified elsewhere; J01.00 Acute maxillary sinusitis, unspecified; E78.00 Pure hypercholesterolemia, unspecified; E11.9 Type 2 diabetes mellitus without complications; Z79.84 Long term (current) use of oral hypoglycemic drugs | CPT/HCPCS: 99282; 99283 ==

== ENCOUNTER 2021-06-30 13:16 | Emergency (ER) | payer BC ==
[2021-06-30 14:34] LABS: CORONAVIRUS COVID-19 NAA NEGATIVE (NEGATIVE)
== END 2021-06-30 14:45 | disposition home or self-care (01) ==
LOC: JD.ED 13:16
DX: R05.9 Cough, unspecified (principal); E78.00 Pure hypercholesterolemia, unspecified; E11.9 Type 2 diabetes mellitus without complications; Z20.822 Contact with and (suspected) exposure to COVID-19
CPT/HCPCS: 0240U; 71046; 99283

== ENCOUNTER 2021-10-15 17:55 | Emergency (ER) | payer BC | END 2021-10-15 20:00 | LOC: JD.ED 17:55 | DX: Z53.21 Procedure and treatment not carried out due to patient leaving prior to being seen by health care provider (principal) ==

== ENCOUNTER 2021-10-22 18:18 | Emergency (ER) | payer BC | END 2021-10-22 19:00 | LOC: JD.ED 18:18 | DX: Z53.21 Procedure and treatment not carried out due to patient leaving prior to being seen by health care provider (principal) ==

== ENCOUNTER 2021-12-24 10:07 | Emergency (ER) | payer BC, MEDICAID ==
[2021-12-24] MEDS ORDERED: Sodium Chloride 0.9% 10 ML Syringe FLUSH PRN (11:28)
[2021-12-24] MEDS ORDERED: Ondansetron 4 MG/2 ML SDV IVPUSH ONE (11:28)
[2021-12-24] MEDS ORDERED: Sodium Chloride 0.9% 1,000 ML IV SCH (11:30)
[2021-12-24] MEDS ORDERED: Sodium Chloride 0.9% 1,000 ML IV ONE (12:52)
== END 2021-12-24 15:46 | disposition home or self-care (01) ==
LOC: JD.ED 10:07
DX: K52.9 Noninfective gastroenteritis and colitis, unspecified (principal); E78.5 Hyperlipidemia, unspecified; E11.9 Type 2 diabetes mellitus without complications; F17.210 Nicotine dependence, cigarettes, uncomplicated; Z79.84 Long term (current) use of oral hypoglycemic drugs
CPT/HCPCS: 36415; 80053; 80061; 81003; 82947; 83690; 83735; 85025; 86140; 96361; 96374; 99284; J2405; J3490; J7030

== ENCOUNTER 2023-02-22 09:42 | Emergency (ER) | payer MEDICAID ==
[2023-02-22] MEDS: Sodium Chloride 0.9% 10 ML Syringe FLUSH PRN (11:02)
[2023-02-22 11:12] LABS: BASOPHILS PERCENT AUTO 0.6 % (0.0-1.0); EOSINOPHILS PERCENT AUTO 1.2 % (0.0-6.0); HEMATOCRIT 36.8 % (42.0-52.0); HEMOGLOBIN 13.5 gm/dl (14.0-18.0); IMMATURE GRAN ABSOLUTE AUTO 0.05 K/mm3 (0.00-0.05); IMMATURE GRAN PERCENT AUTO 1.5 % (0.0-0.4); LYMPHOCYTES ABSOLUTE AUTO 0.6 K/mm3 (1.0-4.8); LYMPHOCYTES PERCENT AUTO 19.1 % (24.0-44.0); MEAN CORPUSCULAR HGB CONC 36.7 g/dl (32.0-36.0); MEAN CORPUSCULAR VOLUME 100.8 fl (83.0-99.0); MEAN PLATELET VOLUME 8.8 fl (9.4-12.4); MONOCYTES ABSOLUTE AUTO 0.3 K/mm3 (0.0-0.8); MONOCYTES PERCENT AUTO 9.6 % (0.0-8.0); NEUTROPHILS ABSOLUTE AUTO 2.2 K/mm3 (1.8-7.7); PLATELET COUNT,PLT 115 K/mm3 (150-400); RED BLOOD CELL COUNT 3.65 M/mm3 (4.52-5.90); WHITE BLOOD CELL COUNT,WBC 3.24 K/mm3 (3.9-11.3)
[2023-02-22 11:30] LABS: A/G RATIO 0.9 (1-2); ALBUMIN 3.3 g/dl (3.4-5.0); ANION GAP 14.1 (5-15); BILIRUBIN TOTAL 2.2 mg/dL (0.2-1.0); BUN/CREATININE RATIO 6.7 (14-18); C-REACTIVE PROTEIN 0.9 mg/dL (<1.0); CALCIUM 9.4 mg/dL (8.5-10.1); CREATININE 0.9 mg/dL (0.7-1.3); EST CRCL DRUG DOSING (CG) 130.4 mL/min; POTASSIUM,K 4.1 mEq/L (3.5-5.1); PROTEIN TOTAL,TP 6.9 g/dl (6.4-8.2)
[2023-02-22 12:05] LABS: LACTIC ACID 0.5 mmol/L (0.4-2.0)
[2023-02-22] MEDS: VANCOmycin 2 GM/400 ML 2 GM in Premix Bag 1 BAG IV ONE (12:06)
[2023-02-22] MEDS: Sodium Chloride 0.9% 10 ML Syringe FLUSH SCH (13:53)
[2023-02-22] MEDS: Gadobenate Dimeglumine 529 MG/ML 20 ML SDV IVPUSH ONE (13:53)
== END 2023-02-22 16:25 | disposition home or self-care (01) ==
LOC: JD.ED 09:42
DX: M86.172 Other acute osteomyelitis, left ankle and foot (principal); E11.9 Type 2 diabetes mellitus without complications; Z79.84 Long term (current) use of oral hypoglycemic drugs; Z86.16 Personal history of COVID-19
CPT/HCPCS: 36415; 73630-26-LT; 73630-LT; 73720-26-LT; 73720-LT; 80053; 83605; 85025; 85652; 86140; 87040; 96365; 96366; 96375; 99284-25; A9577; J3370; J3490

== ENCOUNTER 2023-02-25 22:36 | Emergency (ER) | payer BC, MEDICAID | END 2023-02-25 23:08 | LOC: JD.ED 22:36 | DX: F10.129 Alcohol abuse with intoxication, unspecified (principal); M86.9 Osteomyelitis, unspecified; E11.9 Type 2 diabetes mellitus without complications; Z79.84 Long term (current) use of oral hypoglycemic drugs; Z63.1 Problems in relationship with in-laws; Z86.16 Personal history of COVID-19; Y90.9 Presence of alcohol in blood, level not specified | CPT/HCPCS: 99284 ==

== ENCOUNTER 2023-04-17 14:54 | Emergency (ER) | payer BC ==
[2023-04-17] MEDS: Sodium Chloride 0.9% 1,000 ML IV SCH (16:20)
[2023-04-17] MEDS: Ondansetron 4 MG/2 ML SDV IVPUSH ONE (16:21)
[2023-04-17 16:34] LABS: BASOPHILS PERCENT AUTO 0.4 % (0.0-1.0); EOSINOPHILS PERCENT AUTO 0.8 % (0.0-6.0); HEMATOCRIT 40.3 % (42.0-52.0); HEMOGLOBIN 14.9 gm/dl (14.0-18.0); IMMATURE GRAN ABSOLUTE AUTO 0.06 K/mm3 (0.00-0.05); IMMATURE GRAN PERCENT AUTO 1.3 % (0.0-0.4); LYMPHOCYTES ABSOLUTE AUTO 0.8 K/mm3 (1.0-4.8); LYMPHOCYTES PERCENT AUTO 16.3 % (24.0-44.0); MEAN CORPUSCULAR HEMOGLOBIN 35.4 pg (28.0-32.0); MEAN CORPUSCULAR VOLUME 95.7 fl (83.0-99.0); MONOCYTES ABSOLUTE AUTO 0.3 K/mm3 (0.0-0.8); MONOCYTES PERCENT AUTO 6.9 % (0.0-8.0); NEUTROPHILS ABSOLUTE AUTO 3.6 K/mm3 (1.8-7.7); NEUTROPHILS PERCENT AUTO 74.3 % (41.0-71.0); PLATELET COUNT,PLT 147 K/mm3 (150-400); RED BLOOD CELL COUNT 4.21 M/mm3 (4.52-5.90)
[2023-04-17 17:07] LABS: A/G RATIO 1.2 (1-2); ALBUMIN 3.7 g/dl (3.4-5.0); ANION GAP 17.1 (5-15); BILIRUBIN TOTAL 2.9 mg/dL (0.2-1.0); BUN/CREATININE RATIO 12.2 (14-18); C-REACTIVE PROTEIN 0.27 mg/dL (<0.30); CALCIUM 9.4 mg/dL (8.5-10.1); CREATININE 0.9 mg/dL (0.7-1.3); EST CRCL DRUG DOSING (CG) 126.85 mL/min; MAGNESIUM 1.7 mg/dL (1.8-2.4); POTASSIUM,K 4.1 mEq/L (3.5-5.1); PROTEIN TOTAL,TP 6.9 g/dl (6.4-8.2)
[2023-04-17] MEDS: Iopamidol 612 MG/ML 100 ML Bottle IVPUSH ONE (17:27)
[2023-04-17] MEDS: Sodium Chloride 0.9% 10 ML Syringe FLUSH ONE (17:27)
[2023-04-17] MEDS: Sodium Chloride 0.9% 10 ML Syringe FLUSH PRN (19:06)
[2023-04-17] MEDS: Insulin Regular, Human 100 Units/ML 3 ML Vial IV ONE (19:45)
== END 2023-04-17 19:50 | disposition home or self-care (01) ==
LOC: JD.ED 14:54
DX: K80.20 Calculus of gallbladder without cholecystitis without obstruction (principal); E11.65 Type 2 diabetes mellitus with hyperglycemia; R17 Unspecified jaundice; E78.00 Pure hypercholesterolemia, unspecified; Z86.16 Personal history of COVID-19; Z79.84 Long term (current) use of oral hypoglycemic drugs
CPT/HCPCS: 36415; 74177; 80053; 83690; 83735; 85025; 86140; 96361; 96374; 99284; J1815; J2405; J3490; J7030; Q9967